=== PATIENT | female | born 1950 | race Caucasian/White ===

== ENCOUNTER → 2023-04-29 13:22 | Outpatient (REF) | payer MEDICARE, OTHER, MEDICAID, SELFPAY | LOC: RAD 13:22 | PROVIDERS: ATTENDING PHYSICIAN Internal Medicine Critical Care Medicine; FAMILY PHYSICIAN Internal Medicine | DX: R91.8 Other nonspecific abnormal finding of lung field (principal); J44.1 Chronic obstructive pulmonary disease with (acute) exacerbation | CPT/HCPCS: 71250 ==

== ENCOUNTER → 2023-06-18 11:36 | Outpatient (REF) | payer MEDICARE, MEDICAID, SELFPAY ==
[2023-06-18 13:19] LABS: % Eosinophils 2.3 % (0-6); % Immature Granulocytes 0.3 % (0-0.5); % Lymphocytes 25.2 % (20.5-51.1); % Monocytes 10.6 % (1.7-9.3); % Neutrophils 60.6 % (42.2-75.2); Absolute Eosinophils 0.1 10^3/uL (0-0.7); Absolute Lymphocytes 0.8 10^3/uL (1.2-3.4); Absolute Monocytes 0.3 10^3/uL (0.1-0.6); Absolute Neutrophils 1.9 10^3/uL (1.4-6.5); Hematocrit 32.5 % (37.0-47.0); INR 1.16; Mean Corp Hgb Conc. 30.8 g/dL (33.0-37.0); Mean Corpuscular Hgb 23.9 pg (27.0-31.0); Mean Corpuscular Volume 77.8 fL (81.0-99.0); Nucleated Red Blood Cells % 0 %; PT 14.8 Sec (11.4-14.6); Platelet Count 114 10^3/uL (130-400); Red Blood Cell Count 4.18 10^6/uL (4.20-5.40); Red Cell Dist. Width 17.6 % (11.5-14.5); White Blood Cell Count 3.1 10^3/uL (4.8-10.8)
[2023-06-18 13:46] LABS: ALT (SGPT) 18 U/L (0-35); AST (SGOT) 36 U/L (14-36); Albumin 4.6 g/dl (3.5-5.0); Alkaline Phosphatase 67 U/L (38-126); Blood Urea Nitrogen 17 mg/dl (7-17); Calcium 9.5 mg/dl (8.4-10.2); Carbon Dioxide 29 mmol/L (22-30); Chloride 103 mmol/L (98-107); Glucose 100 mg/dl (70-99); Potassium 4.7 mmol/L (3.5-5.1); Sodium 138 mmol/L (135-145); Total Bilirubin 1.1 mg/dl (0.2-1.3); Total Protein 7.7 g/dl (6.3-8.2); eGFR 59.86
[2023-06-19 18:58] LABS: AFP Male/Tumor Marker 1.59 ng/ml
[2023-06-20 00:56] LABS: Hepatitis B Surface Antigen Negative (Negative)
[2023-06-20 01:14] LABS: Hepatitis B Surface Antibody Negative
[2023-06-20 01:15] LABS: Hepatitis A Antibody, Total Positive (Negative)
[2023-06-20 02:14] LABS: Hepatitis B Core Ab, Total Reactive (Negative)
[2023-06-21 04:28] LABS: HCV Quant by NAAT IU/mL Not Detected; HCV Quant by NAAT Interp Not Detected (Not Detected); HCV Quant by NAAT Log IU/mL Not Detected log IU/mL
== END ==
LOC: REG 11:36
PROVIDERS: ATTENDING PHYSICIAN Internal Medicine Gastroenterology; FAMILY PHYSICIAN Internal Medicine
DX: K70.30 Alcoholic cirrhosis of liver without ascites (principal)
CPT/HCPCS: 36415; 80053; 82105; 85025; 85610; 86704; 86706; 86708; 87340; 87522; 87902

== ENCOUNTER → 2023-10-02 12:03 | Outpatient (REF) | payer MEDICARE, MEDICAID, SELFPAY | LOC: RAD 12:03 | PROVIDERS: ATTENDING PHYSICIAN Radiology Radiation Oncology; FAMILY PHYSICIAN Internal Medicine | DX: C34.31 Malignant neoplasm of lower lobe, right bronchus or lung (principal) | CPT/HCPCS: 71250 ==

== ENCOUNTER → 2023-10-23 09:51 | Outpatient (REF) | payer MEDICARE, MEDICAID, SELFPAY | LOC: RST 09:51 | PROVIDERS: ATTENDING PHYSICIAN Internal Medicine Critical Care Medicine; FAMILY PHYSICIAN Internal Medicine | DX: R05.3 Chronic cough (principal); R13.19 Other dysphagia | CPT/HCPCS: 74230; 92611 ==

== ENCOUNTER 2023-12-12 23:16 | Inpatient (IN) | payer MEDICARE, MEDICAID, SELFPAY ==
[2023-12-12 20:11] VITALS: BP 198/103
[2023-12-12 20:33] LABS: % Basophils 0.4 % (0-2); % Eosinophils 2.7 % (0-6); % Immature Granulocytes 0.4 % (0-0.5); % Lymphocytes 13.7 % (20.5-51.1); % Monocytes 10.6 % (1.7-9.3); % Neutrophils 72.2 % (42.2-75.2); Absolute Eosinophils 0.1 10^3/uL (0-0.7); Absolute Lymphocytes 0.4 10^3/uL (1.2-3.4); Absolute Monocytes 0.3 10^3/uL (0.1-0.6); Absolute Neutrophils 1.9 10^3/uL (1.4-6.5); Hematocrit 28.9 % (37.0-47.0); Mean Corp Hgb Conc. 31.1 g/dL (33.0-37.0); Mean Corpuscular Hgb 23.6 pg (27.0-31.0); Mean Corpuscular Volume 75.7 fL (81.0-99.0); Mean Platelet Volume 9.5 fL (7.4-10.4); Nucleated Red Blood Cells % 0 %; Platelet Count 121 10^3/uL (130-400); Red Blood Cell Count 3.82 10^6/uL (4.20-5.40); Red Cell Dist. Width 14.9 % (11.5-14.5); White Blood Cell Count 2.6 10^3/uL (4.8-10.8)
[2023-12-12 20:48] LABS: ALT (SGPT) 17 U/L (0-35); AST (SGOT) 29 U/L (14-36); Albumin 3.9 g/dl (3.5-5.0); Alkaline Phosphatase 61 U/L (38-126); Blood Urea Nitrogen 21 mg/dl (7-17); Calcium 9.2 mg/dl (8.4-10.2); Carbon Dioxide 30 mmol/L (22-30); Chloride 102 mmol/L (98-107); Glucose 127 mg/dl (70-99); Potassium 3.8 mmol/L (3.5-5.1); Sodium 143 mmol/L (135-145); Total Bilirubin 0.9 mg/dl (0.2-1.3); Total Protein 7.3 g/dl (6.3-8.2); eGFR > 60.00
--- NOTE | 2023-12-12 21:27 | ED.GENMED ---
History of Present Illness
General
Chief Complaint: Breathing Problem
Source: patient
Exam Limitations: none
Time Seen by Provider: 12/12/23 21:12
History of Present Illness
History of Present Illness:
This is a 73 year old female that comes in with c/o SOB. States that she has had increased SOB for the past 2 weeks. States that she is so SOB that she feels like she can't roll over in bed and she can't breath. States that when she used her
Nebulizer at home this seemed to make her feel worse so she stopped using it. States that she uses her albuterol inhaler Qvar inhaler. States that her BP has also been elevated. States that she felt like she had a fever a couple days ago but did not
take her temp. States that she has had chills, heaviness in her chest with SOB, headache and lightheadedness. Denies any abd pain, nausea, vomiting, diarrhea, urinary burning.
Past History
Past History
ED Past Medical History: COPD, GERD, HTN, Psychiatric (Depression, insomnia) and Other (Gastritis/ulcer, PNA, Cirrhosis of the liver, GI bleeding. Hemorrhoids. Hep C, Ulcers, Esopohageal varices. UTI, Anemia, )
ED Past Surgical History: None
Social History
Tobacco: Former smoker
Alcohol: Occasional
Drug: None and IVDA
Personal: Single
Living: with family
Employment: Not employed
Family History
Family History: Other (Noncontributory); Negative Early CAD
Review of Systems
Review of Systems
All Other Systems: ROS reviewed and negative except as documented in HPI and ROS
Constitutional: Reports fever (Couple days ago) and chills
EENT: Reports no symptoms
Respiratory: Reports cough and trouble breathing
Cardiac: Reports chest pain (Heaviness )
ABD/GI: Reports no symptoms; Denies abdominal pain, nausea, vomiting or diarrhea
: Reports no symptoms; Denies dysuria, frequency or urgency
Musculoskeletal: Reports no symptoms
Skin: Reports no symptoms
Neurological: Reports headache and other (Lightheaded); Denies dizzy
Psychiatric: Reports no symptoms
Phy Exam
General Physical Exam
General Presentation: no apparent distress
General age: appears stated age
General Skin: warm and dry
General Habitus: elderly
General Mental: alert
General Hydration: appears well hydrated
ENT Exam
ENT Exam: TM's normal, pharynx normal and neck supple
Eye Exam
Eye Exam: EOMI
Cardiovascular Exam
Cardiovascular Exam: regular rate/rhythm, no edema and normal peripheral pulses
Pulmonary Exam
Pulmonary Exam: no rales, chest non tender, no crackles, no rhonchi and decreased breath sounds (with insp wheezing throughout)
Gastrointestinal Exam
Gastrointestinal Exam: normal bowel sounds, non tender, soft, no organomegaly, no pulsatile mass and non distended
Musculoskeletal Exam
Musculoskeletal Exam: full ROM and no edema
Skin Exam
Skin Exam: normal color, warm/dry, no rash and no petechia
Psychiatric Exam
Psychiatric Exam: normal mood/affect
Scores
Heart Failure Risk
Heart Failure Risk Score: Not Applicable
Course
Orders/Labs/Results
Orders:
Orders
12/12/23 20:08
EKG [Electrocardiogram (*1)] Urgent
Reason for Study: Shortness of Breath
EKG- Treatment ONCE
Chest [CR Chest - 2 Views ] Urgent
Comment:
Reason For Exam: SOB
12/12/23 20:22
CBC/With Diff [Complete Blood Count/With Diff] Urgent
CMP [Comprehensive Metabolic Panel] Urgent
12/12/23 21:27
Dexamethasone Sod Phosphate [Decadron] 10 mg IV NOW STA
Ipratropium/Albuterol Sulfate [Duoneb] 3 ml INH R NOW ONE
Abnormal Lab Results
12/12/23
20:22
WBC 2.6 L 10^3/uL
(4.8-10.8)
RBC 3.82 L 10^6/uL
(4.20-5.40)
Hgb 9.0 L g/dL
(12.0-16.0)
Hct 28.9 L %
(37.0-47.0)
MCV 75.7 L fL
(81.0-99.0)
MCH 23.6 L pg
(27.0-31.0)
MCHC 31.1 L g/dL
(33.0-37.0)
RDW 14.9 H %
(11.5-14.5)
Plt Count 121 L 10^3/uL
(130-400)
Absolute Lymphs (auto) 0.4 L 10^3/uL
(1.2-3.4)
Lymphocytes % 13.7 L %
(20.5-51.1)
Monocytes % 10.6 H %
(1.7-9.3)
BUN 21 H mg/dl
(7-17)
Glucose 127 H mg/dl
(70-99)
12/12/23 20:22
12/12/23 20:22
Pancytopenia. H/H low. Anemia, Very slight Dehydration. Hyperglycemia.
Vital Signs
Initial and Last Documented VS:
Initial Vital Signs
Temp Pulse Resp BP Pulse Ox
97.6 F 94 25 198/103 93
12/12/23 20:11 12/12/23 20:11 12/12/23 20:11 12/12/23 20:11 12/12/23 20:11
Last Documented Vital Signs
Temp Pulse Resp BP Pulse Ox
97.6 F 85 25 182/83 100
12/12/23 20:11 12/12/23 21:59 12/12/23 20:11 12/12/23 22:01 12/12/23 21:59
MDM/Problems Addressed
Differential Diagnosis Includes:
COPD, PNA,
MDM/Problems Addressed:
This is a 73 year old female that comes in with c/o increased SOB over the past 2 weeks. States that she has been so SOB that she can't even roll over in bed. States that her Nebulizer seems to make her feel worse.
Will check labs, chest x-ray, Give Duo and steroids.
Back into see patient. Patient states that she felt some better after the neb treatment. Attempted to walk patient and patient is hypoxic with any activity. Placed patient on 1liter of nasal canula. Will admit
Chronic conditions affecting care: COPD
Acute Exacerbation and/or Progression of Chronic Illness: COPD
*Radiology
Radiology exam reviewed: radiology read reviewed (cHEST-cHRONIC EMPHYSEMATOUS CHANGES WITHOUT NEW FOCAL AIRSPACE DISEASE. )
*Pulse Oximetry
Patient hypoxic: no
*EKG
Interpreted by ED Provider?: Yes
Heart Rate: 89
Rate: normal
Rhythm: sinus
[place]: normal axis
Interval: normal interval
QRS Pattern: normal QRS
Ischemia: non-specific ST changes (II, III, aVF, V3, V4, V5, V6, )
*Plastics Engineering Teacher Interpretation
Rate: Plastics Engineering Teacher- N/A
*Critical Care Note
Total Time (30-74mins, 75-104mins- exclusive of procedures): Not Applicable
ED Attending Note
-
Portions of this chart may have been created with voice recognition software.� Occasional wrong word or��sound alike� substitutions may have occurred due to the inherent limitations of voice recognition software.
Discharge Plan
Departure
Patient Disposition: Admit
Date of Disposition: 12/12/23
Time of Disposition: 22:46
Admit to: Telemetry
Presentation/result/management discussed w/ accepting MD/DO: Hospitalist
Patient with high blood pressure during this ER visit?: Yes
Condition: Good
Covid-19: Not Applicable
Discharge Problem:
COPD exacerbation, Hypoxia, SOB (shortness of breath)
Prescriptions:
No Action
trazodone 50 MG tablet
50 - 100 mg PO HSPRN PRN (Reason: sleep)
propranolol 60 MG capsule,extended release 24 hr
60 mg PO DAILY
albuterol sulfate 2.5 mg /3 mL (0.083 %) Solution For Nebulization
2.5 mg INHALATION R Q4HPRN PRN (Reason: sob) Qty: 0
omeprazole 40 mg Capsule,Delayed Release(Dr/Ec)
40 mg PO DAILY
albuterol sulfate [ProAir HFA] 90 mcg/actuation Hfa Aerosol Inhaler
2 puff INHALATION R Q6HPRN PRN (Reason: sob)
valsartan 160 mg Tablet
160 mg PO DAILY
Patient Comments:
-patient said she still takes this but ecw show dicontinued
Qvar RediHaler 40 mcg/actuation Hfa Aerosol Breath Activated
1 inh INHALATION R BID
prednisone 10 mg Tablet
See Rx Instructions .ROUTE .COMPLEX Qty: 20 0RF
Rx Instructions:
Take By Mouth:
40 mg daily x2 days, 30 mg daily x2 days,
20 mg daily x2 days, 10 mg daily x2 days.
cefdinir 300 mg capsule
300 mg PO BID 3 Days Qty: 6 0RF
doxycycline hyclate 100 mg capsule
100 mg PO BID Qty: 6 0RF
methylprednisolone [Medrol (Edson)] 4 mg tablets,dose pack
See Rx Instructions .ROUTE .COMPLEX Qty: 21 0RF
Rx Instructions:
orally per package directions
Referrals:
Fer Motta MD [Family Provider] -
Interventions
Interventions:
*Risk Screen - Suicide Last Done: 12/12/23 20:11
*General Assessment Last Done: 12/12/23 22:04
*Neglect/Abuse Screening Last Done: 12/12/23 20:11
*ED COVID-19 Vaccine History Last Done: 12/12/23 22:04
ED- Cardiac Assessment Last Done: 12/12/23 21:59
ED- Pulmonary Assessment Last Done: 12/12/23 21:59
Discharge Date and Time
Print Language: SUDANESE
[2023-12-12] MEDS: DUONEB 3 ML INH (21:49)
[2023-12-12] MEDS: DECADRON 10 MG IV (21:51)
[2023-12-12 21:59] VITALS: BP 192/82
[2023-12-12 22:00] VITALS: BP 182/83
[2023-12-12 22:01] VITALS: BP 182/83
--- NOTE | 2023-12-12 22:54 | HPS.HSE ---
Addendum entered and electronically signed by Sanjay De Jesus DO 12/12/23 23:45:
Patient seen and examined independently. Agree with findings and plan as set forth by HUBERT Watters.
Patient is a 73y F with PMH significant for COPD, pancytopenia, hypertension and cirrhosis who presents to ED complaining of SOB x 2 weeks. Patient states that she has been using inhaled medications at home without improvement in her symptoms.
In fact, she states that she feels worse after taking budesonide nebs. Patient denies fevers but reports occasional chills. No known sick contacts.
In the ED, patient is hypoxemia on room air and is requiring supplemental oxygen.
Ass:
COPD with Acute Exacerbation
Acute Hypoxemic Respiratory Insufficiency
Chronic Hep C
Cirrhosis secondary to Hep C and History of Alcohol Use Disorder
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
Benign Hypertension
Anxiety / Depression
Plan:
Admit for further evaluation and treatment.
No active wheezing, but markedly diminished breath sounds throughout.
IV steroids for now and taper as able.
Continue inhaled medications / nebs, O2 support, etc.
Follow for clinical improvement.
Continue usual home medication regimen.
IV hydralazine as needed for very high BP.
Original Note:
Family Physician
-
Family Physician: Fer Motta
Chief Complaint
-
sob
History of Present Illness
73 year old female with PMH for COPD, pancytopenia, HTN, cirrhosis of liver, HTn, depression that comes in with c/o SOB for past two weeks. sob worse with activity. she can't even turn over in bed due to sob. it progressively got worse for last four
days. patient used her nebulizer treatment which was making her breathing worse. Breo helped her. patient stated non productive cough. at time she gets stabbing pain to her left lower ribs. States that she has had chills, heaviness in her chest
with SOB, headache and lightheadedness. Denies any abdominal pain, nausea, vomiting, diarrhea, burning or hematuria.
Upon arrival she is 89-90 on RA. she is requiring 2l of oxygen. admitting for further management.
Medical History
Past Medical History
Past Medical History: Reports Other
Additional Past Medical History:
COPD
anemia
htn
cirrhosis of liver
alcohol abuse
depression
anxiety
esophageal varices
chronic hepatitis C
lung nodules
Past Surgical History: Reports None
Social History
Tobacco: Former Smoker
Alcohol: Occasional
Drug: None
Family History
Family History: Not pertinent
Allergies / Home Medications
Allergies reflects when Allergies were last updated in [employer].
Home Medications with original date entered in [employer]
Allergy/Medication List:
Allergies
Allergy/AdvReac Type Severity Reaction Status Date / Time
No Known Allergies Allergy Verified 12/12/23 21:47
Home Medications
propranolol 60 mg capsule,24 hr,extended release 60 mg PO DAILY Blood Pressure 01/30/18
omeprazole 40 mg capsule,delayed release 40 mg PO DAILY Gastrointestinal Issue 01/22/23
valsartan 160 mg tablet 160 mg PO DAILY Blood Pressure 01/22/23
albuterol sulfate 90 mcg/actuation aerosol inhaler 1 puff inhalation R Q4HPRN PRN sob/wheezing 12/12/23
budesonide 0.5 mg/2 mL suspension for nebulization 0.5 mg inhalation R BID 12/12/23
trazodone 100 mg tablet 100 mg PO HS 12/12/23
umeclidinium 62.5 mcg-vilanterol 25 mcg/actuation powdr for inhalation (Anoro Ellipta) 1 inh inhalation R DAILY 12/12/23
Review of Systems
-
Constitutional: Reports No Symptoms
EENT: Reports No Symptoms
Respiratory: Reports Cough and Trouble Breathing
Cardiac: Reports No Symptoms
Abdomen/GI: Reports No Symptoms
: Reports No Symptoms
Musculoskeletal: Reports No Symptoms
Skin: Reports No Symptoms
Neurological: Reports No Symptoms
Endocrine: Reports No Symptoms
Hematologic/Lymphatic: Reports No Symptoms
Psych: Reports No Symptoms
Physical Exam
Vital Signs
Vital Signs
Temp Pulse Resp BP Pulse Ox
97.6 F 85 25 182/83 100
12/12/23 20:11 12/12/23 21:59 12/12/23 20:11 12/12/23 22:01 12/12/23 21:59
Physical Exam
General: Well Developed, Well Nourished and No Apparent Distress
HEENT: NormoCephalic, Moist mucous membranes and Atraumatic
Respiratory: Decreased Breath Sounds
Cardiac: S1/S2 and Regular Rhythm; No Murmur or Rub
GI: Soft, Non Tender, Non Distended and Normal Bowel Sounds; No Organomegaly
Rectal: Deferred by Provider
Musculoskeletal: No Clubbing, No Cyanosis and No Edema
Skin: No Rash
Neuro: AO x 3 and Nonfocal/grossly intact
Psych: Calm
Laboratory Results
-
12/12/23 20:22
12/12/23 20:22
Laboratory Results
Total Bilirubin 0.9 mg/dl (0.2-1.3) 12/12/23 20:22
AST 29 U/L (14-36) 12/12/23 20:22
ALT 17 U/L (0-35) 12/12/23 20:22
Alkaline Phosphatase 61 U/L (38-126) 12/12/23 20:22
Data Reviewed
-
Diagnostic Radiology: Report Reviewed by me
Lab Data: Labs Reviewed by me
Impression/Plan
-
#sob /acute hypoxia likely COPD exacerbation
-chest x ray with Chronic emphysematous changes without new focal airspace disease.
-Decadron 4mg q18h
-nebs prn for sob/wheezing
-continue supplemental oxygen to keep sat 92
-wean as tolerated
# chronic pancytopenia likely due to liver disease
-wbc 2.6, hgb 9.0, platelets 121
-ctm
#Chronic hepatitis C
�-Alcoholic Cirrhosis
# Essential hypertension -uncontrolled
-valsartan and propranolol continued with hold parameter
-As needed hydralazine ordered
#Former alcohol use disorder
#History of tobacco use
DVT PPX - Lovenox
Full code
[2023-12-12 23:10] VITALS: BP 205/87
[2023-12-13] VITALS (10 sets, daily range): BP systolic 152–196; BP diastolic 74–108; BMI 15.4
[2023-12-13] MEDS: APRESOLINE 10 MG IV ×3 (00:04→15:52)
[2023-12-13] MEDS: DUONEB 3 ML INH ×3 (01:14→19:26)
[2023-12-13] MEDS: DECADRON 4 MG IV ×3 (05:24→22:34)
[2023-12-13 07:09] LABS: Hematocrit 26.6 % (37.0-47.0); Hemoglobin 8.4 g/dL (12.0-16.0); Mean Corp Hgb Conc. 31.6 g/dL (33.0-37.0); Mean Corpuscular Hgb 23.5 pg (27.0-31.0); Mean Corpuscular Volume 74.5 fL (81.0-99.0); Mean Platelet Volume 10.1 fL (7.4-10.4); Platelet Count 119 10^3/uL (130-400); Red Blood Cell Count 3.57 10^6/uL (4.20-5.40); Red Cell Dist. Width 14.6 % (11.5-14.5); White Blood Cell Count 1.5 10^3/uL (4.8-10.8)
[2023-12-13] MEDS: TYLENOL 650 MG PO (07:22)
[2023-12-13] MEDS: PULMICORT 0.5 MG INH ×2 (07:26→19:26)
[2023-12-13 07:38] LABS: Blood Urea Nitrogen 22 mg/dl (7-17); Calcium 9.4 mg/dl (8.4-10.2); Carbon Dioxide 26 mmol/L (22-30); Chloride 101 mmol/L (98-107); Estimated Creatinine Clearance 44 ml/min; Glucose 171 mg/dl (70-99); Potassium 3.8 mmol/L (3.5-5.1); Sodium 141 mmol/L (135-145); eGFR > 60.00
[2023-12-13 07:40] LABS: % Immature Granulocytes 0.7 % (0-0.5); % Lymphocytes 18.9 % (20.5-51.1); % Monocytes 3.4 % (1.7-9.3); Absolute Lymphocytes 0.3 10^3/uL (1.2-3.4); Absolute Monocytes 0.1 10^3/uL (0.1-0.6); Absolute Neutrophils 1.1 10^3/uL (1.4-6.5); Nucleated Red Blood Cells % 0 %
--- NOTE | 2023-12-13 07:40 | W.PN.HOSP.TC ---
Today's Communication/Plan
-
cont steroids
wean O2 as tolerated
ativan prn anxiety
blood pressure control
Diet downgraded to soft bite sized
Protonix BID
Assessment / Plan
Assessment / Plan
Physical Exam
General:No acute distress appears comfortable at this time. Cachectic
HEENT: NormoCephalic, Moist mucous membranes and Atraumatic. Right Carotid Bruit noted
Respiratory: Decreased Breath Sounds
Cardiac: S1/S2 and Regular Rhythm; No Murmur or Rub. JV distension noted
GI: Soft, Non Tender, Non Distended and Normal Bowel Sounds; No Organomegaly
Musculoskeletal: No Clubbing, No Cyanosis and No Edema
Skin: No Rash
Neuro: AO x 3 and Nonfocal/grossly intact
Psych: Calm
73F COPD, pancytopenia, HTN, cirrhosis of liver, HTN, depression p/w SOB two weeks. sob worse with activity. she can't even turn over in bed due to sob. it progressively got worse for last four days. patient used her nebulizer treatment which was
making her breathing worse. Breo helped her. patient stated non productive cough. at time she gets stabbing pain to her left lower ribs. States that she has had chills, heaviness in her chest with SOB, headache and lightheadedness. Denies any
abdominal pain, nausea, vomiting, diarrhea, burning or hematuria. Upon arrival she is 89-90 on RA. she is requiring 2l of oxygen. admitting for further management.
#sob /acute hypoxia likely COPD exacerbation
# D-dimer elevated
-chest x ray with Chronic emphysematous changes without new focal airspace disease.
-Decadron 4mg q8h
-nebs prn for sob/wheezing
-continue supplemental oxygen to keep sat 92
-wean as tolerated
-CT chest appreciated no PE, stable 8 mm nodule RLL, Moderate/severe apical predominant emphysematous bioapical pleural parenchymal scarring unchanged from prior, cirrhosis w/ splenomegaly similar to prior
-Check Venous Duplex
Intermittent Chest Pain
-neg troponin, EKG appreciated non specific ST abn's
-possibly related to GERD/Esophageal Dysphagia
-Protonix increased to BID
-ST eval appreciated diet downgraded to soft bite sized
#Right Carotid Bruit
Check Carotid US
#JV distension
Check ECHO
daily weights I/O
# chronic pancytopenia likely due to liver disease
-ctm
#Neutropenic
Neutrophil count trended down
maintain neutropenic precautions at this time
#Chronic hepatitis C
�-Alcoholic Cirrhosis
# Essential hypertension -uncontrolled
-valsartan and propranolol continued with hold parameter
-As needed hydralazine
-monitor and titrate antihypertensive regimen as necessary.
#Former alcohol use disorder
#History of tobacco use
PT/OT appreciated home health
DVT PPX - Lovenox
Full code
I spent a total of 50 minutes with the patient or on the floor. More than 50% of this time involved counseling and coordination of care.
Anticipated Discharge: 24 - 48 hours
Subjective/Interval History
-
Date of Service: December 13, 2023
Seen and examined at bedside in no acute distress sitting up comfortably in bed. Reports overall improvement in symptoms including shortness of breath. Reports intermittent chest pain sternal lasting minutes typically. Notes possible association
with meals.
Objective Data
-
Labs:
Laboratory Results
12/12/23 12/13/23
20:22 05:52
WBC 2.6 L 1.5 L*
Hgb 9.0 L 8.4 L
Hct 28.9 L 26.6 L
Plt Count 121 L 119 L
Sodium 143 141
Potassium 3.8 3.8
Chloride 102 101
Carbon Dioxide 30 26
BUN 21 H 22 H
Creatinine 0.8 0.7
Glucose 127 H 171 H
Calcium 9.2 9.4
Total Bilirubin 0.9
AST 29
ALT 17
Alkaline Phosphatase 61
Vital Signs:
Vital Signs
Temp Pulse Resp BP Pulse Ox
98.5 F 98 18 171/85 98
12/13/23 04:26 12/13/23 07:33 12/13/23 07:33 12/13/23 06:27 12/13/23 07:33
I&O
12/12/23 12/13/23 12/14/23
06:59 06:59 05:59
Output Total 200 / 200
Balance -200 / -200
[2023-12-13] MEDS: PROTONIX 40 MG PO (08:43)
[2023-12-13] MEDS: INDERAL LA 60 MG PO (08:43)
[2023-12-13] MEDS: DIOVAN 160 MG PO (08:44)
[2023-12-13 09:05] LABS: Hematocrit 27.9 % (37.0-47.0); Hemoglobin 9.1 g/dL (12.0-16.0)
[2023-12-13 09:31] LABS: Troponin I < 0.012 ng/ml
[2023-12-13] MEDS: STRIVERDI RESPIMAT 2 PUFF INH (11:21)
[2023-12-13] MEDS: SPIRIVA RESPIMAT 2.5 MCG 2 PUFF INH (11:22)
[2023-12-13 12:40] LABS: NT-proBNP 1710 pg/ml
--- NOTE | 2023-12-13 15:33 | PTOTSP ---
Acute Care Evaluation
Pt currently presents with mild oral dysphagia 2/2 reduced and alternative dentition resulting in prolonged mastication and bolus formation. Pt also exhibits clinical signs for suspected mild pharyngoesophageal dysphagia characterized by delayed
coughing with ingestion of liquids in addition to pt's reported symptoms of occasional difficulty initiating swallows, coughing/choking with PO intake at least 1x a day (more with solids than liquids), globus sensation near clavicular notch and near
sternal apex with PO intake, and needing to swallow multiple times for to clear solids.
Recommendations:
- DOWNGRADE diet to SOFT BITE SIZED SOLIDS and continue with REGULAR THIN LIQUIDS with meds with water as tolerated.
- Aspiration and reflux precautions: Fully upright for all PO intake and for at least 60 minutes after PO intake; small bites/sips; alternate bites/sips; over chew foods; slow intake rate - take breaks to breathe.
- Consider repeat VFSS (though not much has changed medically-speaking since last VFSS on 10/23/2023).
- CENTER MACHINE OPERATOR to f/u re: diet tolerance and to determine if pt would benefit from a repeat VFSS.
--- NOTE | 2023-12-13 15:35 | CM ---
CM following re: discharge planning.
Reviewed pt's chart, met with pt.
Pt is a 73 year old female, admitted with primary dx of Acute hypoxic respiratory failure.
Pt reports she lives now with son in an apartment, has 5 supportive children. Pt described herself as independent in all areas [employer]S MA[employer]GER. No DME, VN or SNF history.
PCP: Fer Paniagua
Pharmacy: [facility]
D/C plan: home with anticipated no needs. Son to transport at discharge.
CM will follow with discharge plan updates as hospitalization progresses
--- NOTE | 2023-12-13 17:45 | PTCARENOTE ---
Patient received to room 427 private room to accommodate neutropenic precautions. Patient oriented to room. Patient verbalizes understanding to ring for needs. Patient also verbalizes that she ordered her dinner tray.
--- NOTE | 2023-12-13 17:46 | PTCARENOTE ---
pt transferred to [address] [place] [address]. Report given to WANG Farnsworth. sent belongings with the pt.
[2023-12-13] MEDS: NSS (PRESERVATIVE FREE) 10 ML IV (20:00)
[2023-12-13] MEDS: PROTONIX IV 40 MG IV (20:00)
[2023-12-13] MEDS: DESYREL 100 MG PO (22:34)
[2023-12-14] MEDS: DECADRON 4 MG IV ×3 (05:28→20:19)
[2023-12-14 05:56] LABS: % Basophils 0.2 % (0-2); % Immature Granulocytes 0.2 % (0-0.5); % Lymphocytes 7.4 % (20.5-51.1); % Monocytes 3.5 % (1.7-9.3); % Neutrophils 88.7 % (42.2-75.2); Absolute Lymphocytes 0.4 10^3/uL (1.2-3.4); Absolute Monocytes 0.2 10^3/uL (0.1-0.6); Absolute Neutrophils 4.8 10^3/uL (1.4-6.5); Hematocrit 26.8 % (37.0-47.0); Hemoglobin 8.3 g/dL (12.0-16.0); Mean Corpuscular Hgb 23.3 pg (27.0-31.0); Mean Corpuscular Volume 75.3 fL (81.0-99.0); Mean Platelet Volume 10.1 fL (7.4-10.4); Nucleated Red Blood Cells % 0 %; Platelet Count 133 10^3/uL (130-400); Red Blood Cell Count 3.56 10^6/uL (4.20-5.40); Red Cell Dist. Width 14.6 % (11.5-14.5); White Blood Cell Count 5.4 10^3/uL (4.8-10.8)
[2023-12-14 06:36] LABS: Blood Urea Nitrogen 31 mg/dl (7-17); Calcium 9.2 mg/dl (8.4-10.2); Carbon Dioxide 27 mmol/L (22-30); Chloride 102 mmol/L (98-107); Estimated Creatinine Clearance 34 ml/min; Glucose 126 mg/dl (70-99); Potassium 4.3 mmol/L (3.5-5.1); Sodium 140 mmol/L (135-145); eGFR > 60.00
--- NOTE | 2023-12-14 06:41 | W.PN.HOSP.TC ---
Today's Communication/Plan
-
Follow up ECHO and Carotid US Mon
Decadron tapered to Q12H
Calamine lotion prn itching
blood pressure control
PT/OT
Protonix BID
Assessment / Plan
Assessment / Plan
Physical Exam
General:No acute distress appears comfortable at this time. Cachectic
HEENT: NormoCephalic, Moist mucous membranes and Atraumatic. Right Carotid Bruit noted
Respiratory: Decreased Breath Sounds
Cardiac: S1/S2 and Regular Rhythm; No Murmur or Rub. JV distension noted
GI: Soft, Non Tender, Non Distended and Normal Bowel Sounds; No Organomegaly
Musculoskeletal: No Clubbing, No Cyanosis and No Edema
Skin: No Rash
Neuro: AO x 3 and Nonfocal/grossly intact
Psych: Calm
73F COPD, pancytopenia, HTN, cirrhosis of liver, HTN, depression p/w SOB two weeks. sob worse with activity. she can't even turn over in bed due to sob. it progressively got worse for last four days. patient used her nebulizer treatment which was
making her breathing worse. Breo helped her. patient stated non productive cough. at time she gets stabbing pain to her left lower ribs. States that she has had chills, heaviness in her chest with SOB, headache and lightheadedness. Denies any
abdominal pain, nausea, vomiting, diarrhea, burning or hematuria. Upon arrival she is 89-90 on RA. she is requiring 2l of oxygen. admitting for further management.
#sob /acute hypoxia likely COPD exacerbation
# D-dimer elevated
-chest x ray with Chronic emphysematous changes without new focal airspace disease.
-Decadron 4mg q8h tapered to Q12H
-nebs prn for sob/wheezing
-continue supplemental oxygen to keep sat 92
-wean O2 as tolerated, home oxygen assessment prior to discharge
-CT chest appreciated no PE, stable 8 mm nodule RLL, Moderate/severe apical predominant emphysematous bioapical pleural parenchymal scarring unchanged from prior, cirrhosis w/ splenomegaly similar to prior
-Venous Duplex appreciated neg for DVT
Intermittent Chest Pain
-neg troponin, EKG appreciated non specific ST abn's
-possibly related to GERD/Esophageal Dysphagia
-Protonix increased to BID
-ST eval appreciated diet downgraded to soft bite sized
#Right Carotid Bruit
Check Carotid US Friday
#JV distension
Check ECHO Friday
daily weights I/O
# chronic pancytopenia likely due to liver disease
-ctm
#Neutropenic
Neutrophil count trended down since resolved
ok to discontinue neutropenic precautions
#Chronic hepatitis C
�-Alcoholic Cirrhosis
# Essential hypertension -uncontrolled
-valsartan and propranolol continued with hold parameter
-As needed hydralazine
-monitor and titrate antihypertensive regimen as necessary.
#Former alcohol use disorder
#History of tobacco use
#Cachectic
nutrition eval
ensure supplementation
PT/OT appreciated home health
DVT PPX - Lovenox
Full code
I spent a total of 50 minutes with the patient or on the floor. More than 50% of this time involved counseling and coordination of care.
Anticipated Discharge: 24 - 48 hours
Subjective/Interval History
-
Date of Service: December 14, 2023
Seen and examined at bedside in no acute distress sitting up comfortably in bed. Weaned off oxygen supplementation to room air. Pursed lip breathing.
Objective Data
-
Labs:
Laboratory Results
12/14/23
05:41
WBC 5.4
Hgb 8.3 L
Hct 26.8 L
Plt Count 133
Sodium 140
Potassium 4.3
Chloride 102
Carbon Dioxide 27
BUN 31 H
Creatinine 0.9
Glucose 126 H
Calcium 9.2
Vital Signs:
Vital Signs
Temp Pulse Resp BP Pulse Ox
98.2 F 79 16 152/78 98
12/13/23 23:47 12/13/23 23:47 12/13/23 23:47 12/13/23 23:47 12/13/23 23:47
I&O
12/12/23 12/13/23 12/14/23
06:59 06:59 05:59
Intake Total 1020 / 1020
Output Total 200 / 200
Balance -200 / -200 1020 / 1020
[2023-12-14] MEDS: PULMICORT 0.5 MG INH ×2 (07:41→19:23)
[2023-12-14] MEDS: DUONEB 3 ML INH (07:41)
[2023-12-14] MEDS: STRIVERDI RESPIMAT 2 PUFF INH (07:41)
[2023-12-14] MEDS: SPIRIVA RESPIMAT 2.5 MCG 2 PUFF INH (07:42)
[2023-12-14 07:46] VITALS: BP 138/61
[2023-12-14] MEDS: PROTONIX IV 40 MG IV ×2 (09:19→20:28)
[2023-12-14] MEDS: NSS (PRESERVATIVE FREE) 10 ML IV ×2 (09:19→20:28)
[2023-12-14] MEDS: DIOVAN 160 MG PO (09:20)
[2023-12-14] MEDS: INDERAL LA 60 MG PO (09:40)
[2023-12-14 11:58] LABS: INR 1.27; PT 15.8 Sec (11.4-14.6)
[2023-12-14 11:59] LABS: APTT 29.7 Sec (23.4-35.0)
[2023-12-14 15:29] VITALS: BP 132/61; PULSE 81; PULSE 90; O2SAT 95
[2023-12-14 15:55] VITALS: BP 119/57
--- NOTE | 2023-12-14 16:39 | CM ---
Met with patient at bedside; explained that PT recommended home health services for PT; patient agreeable
Options identified; preference [facility]; referral sent via [facility]
Plan: discharge to home when medically stable with home health services
[2023-12-14] MEDS: DESYREL 100 MG PO (22:50)
[2023-12-14 23:30] VITALS: BP 146/78
[2023-12-15 07:30] VITALS: BP 132/65
[2023-12-15] MEDS: DIOVAN 160 MG PO (07:30)
[2023-12-15] MEDS: PROTONIX IV 40 MG IV (07:30)
[2023-12-15] MEDS: NSS (PRESERVATIVE FREE) 10 ML IV (07:30)
[2023-12-15] MEDS: DECADRON 4 MG IV (07:30)
[2023-12-15] MEDS: INDERAL LA 60 MG PO (07:30)
[2023-12-15] MEDS: PULMICORT 0.5 MG INH (08:13)
[2023-12-15] MEDS: STRIVERDI RESPIMAT 2 PUFF INH (08:13)
[2023-12-15] MEDS: SPIRIVA RESPIMAT 2.5 MCG 2 PUFF INH (08:13)
[2023-12-15 08:34] LABS: % Basophils 0.1 % (0-2); % Immature Granulocytes 0.6 % (0-0.5); % Lymphocytes 6.1 % (20.5-51.1); % Monocytes 4.8 % (1.7-9.3); % Neutrophils 88.4 % (42.2-75.2); Absolute Lymphocytes 0.4 10^3/uL (1.2-3.4); Absolute Monocytes 0.3 10^3/uL (0.1-0.6); Hematocrit 25.9 % (37.0-47.0); Hemoglobin 8.1 g/dL (12.0-16.0); Mean Corp Hgb Conc. 31.3 g/dL (33.0-37.0); Mean Corpuscular Hgb 23.7 pg (27.0-31.0); Mean Corpuscular Volume 75.7 fL (81.0-99.0); Mean Platelet Volume 10.5 fL (7.4-10.4); Nucleated Red Blood Cells % 0 %; Platelet Count 123 10^3/uL (130-400); Red Blood Cell Count 3.42 10^6/uL (4.20-5.40); Red Cell Dist. Width 14.7 % (11.5-14.5); White Blood Cell Count 6.7 10^3/uL (4.8-10.8)
[2023-12-15 08:57] LABS: Blood Urea Nitrogen 36 mg/dl (7-17); Carbon Dioxide 28 mmol/L (22-30); Chloride 101 mmol/L (98-107); Estimated Creatinine Clearance 28 ml/min; Glucose 106 mg/dl (70-99); Potassium 4.4 mmol/L (3.5-5.1); Sodium 140 mmol/L (135-145); eGFR 53.39
[2023-12-15 11:19] VITALS: PULSE 75; O2SAT 95
--- NOTE | 2023-12-15 12:40 | CM ---
CM reviewed chart, met with patient bedside, patient for discharge today. Patient reports she is currently staying with her son, son will provide transportation home. Update to [facility] on patient discharge status. IMM reviewed, signed, placed in chart,
provided with copy. CM will continue to follow for all discharge planning needs.
Plan; home with [facility] and son.
--- NOTE | 2023-12-15 13:10 | W.PN.HOSP.TC ---
Addendum entered and electronically signed by Justin Perez MD 12/18/23 16:01:
[id number]
Addendum entered and electronically signed by Justin Perez MD 12/18/23 15:11:
Severe protein calorie malnutrition
Original Note:
Today's Communication/Plan
-
Steroid taper
Follow-up PCP, pulmonary, gastroenterology outpatient
Stable size of the 8 mm nodule within the right lower lobe with associated fissural retraction. - f/u outpatient
Assessment / Plan
Assessment / Plan
Physical Exam
General:No acute distress appears comfortable at this time. Cachectic
HEENT: NormoCephalic, Moist mucous membranes and Atraumatic. Right Carotid Bruit noted
Respiratory: Decreased Breath Sounds
Cardiac: S1/S2 and Regular Rhythm; No Murmur or Rub. JV distension noted
GI: Soft, Non Tender, Non Distended and Normal Bowel Sounds; No Organomegaly
Musculoskeletal: No Clubbing, No Cyanosis and No Edema
Skin: No Rash
Neuro: AO x 3 and Nonfocal/grossly intact
Psych: Calm
73F COPD, pancytopenia, HTN, cirrhosis of liver, HTN, depression p/w SOB two weeks. sob worse with activity. she can't even turn over in bed due to sob. it progressively got worse for last four days. patient used her nebulizer treatment which was
making her breathing worse. Breo helped her. patient stated non productive cough. at time she gets stabbing pain to her left lower ribs. States that she has had chills, heaviness in her chest with SOB, headache and lightheadedness. Denies any
abdominal pain, nausea, vomiting, diarrhea, burning or hematuria. Upon arrival she is 89-90 on RA. she is requiring 2l of oxygen. admitting for further management.
#sob /acute hypoxia likely COPD exacerbation
-chest x ray with Chronic emphysematous changes without new focal airspace disease.
-Decadron 4mg q8h tapered to Q12H -switch to prednisone taper starting 50 mg and drop by 10 mg every 72 hours
-nebs prn for sob/wheezing, discharge on home inhalers
-Not requiring any oxygen
� O2 goal greater than 88%
-CT chest appreciated no PE, stable 8 mm nodule RLL, Moderate/severe apical predominant emphysematous bioapical pleural parenchymal scarring unchanged from prior, cirrhosis w/ splenomegaly similar to prior
-Venous Duplex appreciated neg for DVT
�Follow-up pulmonary outpatient
Intermittent Chest Pain
-neg troponin, EKG appreciated non specific ST abn's
-possibly related to GERD/Esophageal Dysphagia
-Protonix increased to BID
-ST eval appreciated diet downgraded to soft bite sized
#Dysphagia
-Advised to follow-up with gastroenterology, has not been following up closely with outpatient providers
#JV distension
Does not appear to be distention, does have small area of the vein that looks enlarged
� Carotid Dopplers with no significant stenosis
�Monitor and overload, appears euvolemic
# chronic pancytopenia likely due to liver disease
-ctm
#Neutropenic
Neutrophil count trended down since resolved
ok to discontinue neutropenic precautions
#Chronic hepatitis C
�-Alcoholic Cirrhosis
# Essential hypertension -uncontrolled
-valsartan and propranolol continued with hold parameter
-As needed hydralazine
-monitor and titrate antihypertensive regimen as necessary.
#Former alcohol use disorder
#History of tobacco use
#Cachectic
nutrition eval
ensure supplementation
PT/OT appreciated home health
DVT PPX - Lovenox
Full code
More than 30 minutes spent in discharge including
Final examination of the patient
Summarizing hospital stay
Instructions for continuing care to all relevant caregivers
Preparation of discharge records, prescriptions, and referral forms
Total time spent (35 in minutes):
Anticipated Discharge: Today
Subjective/Interval History
-
Date of Service: December 15, 2023
Symptoms greatly improved, ambulating without requirement of oxygen
Objective Data
-
Labs:
Laboratory Results
12/15/23
07:05
WBC 6.7
Hgb 8.1 L
Hct 25.9 L
Plt Count 123 L
Sodium 140
Potassium 4.4
Chloride 101
Carbon Dioxide 28
BUN 36 H
Creatinine 1.1 H
Glucose 106 H
Calcium 9.0
Vital Signs:
Vital Signs
Temp Pulse Resp BP Pulse Ox
97.6 F 77 16 132/65 95
12/15/23 07:30 12/15/23 08:17 12/15/23 08:17 12/15/23 07:30 12/15/23 08:17
I&O
12/14/23 12/15/23 12/16/23
06:59 06:59 06:59
Intake Total 1080 / 1080
Balance 1080 / 1080
Review of Systems
-
All other systems: Not reviewed unless documented
Data Reviewed
-
CT Scan: Image personally visualized and interpreted and Report Reviewed by me
Labs: Labs Reviewed by me
--- NOTE | 2023-12-15 13:14 | W.DS.TRANS ---
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
-
Discharge Instructions:
Discharge Diagnosis/Procedures
#sob /acute hypoxia likely COPD exacerbation
Diet Low Cholesterol,Low Fat
Activity As tolerated
Blood Work cbc, cmp with pcp outpatient
Instructions:
Stand-Alone Forms:
Changes to Home Medications: Yes
Discharge Medications:
DC Medications w/original date entered in [facility]
propranolol 60 mg capsule,24 hr,extended release 60 mg PO DAILY Blood Pressure 01/30/18
omeprazole 40 mg capsule,delayed release 40 mg PO DAILY Gastrointestinal Issue 01/22/23
valsartan 160 mg tablet 160 mg PO DAILY Blood Pressure 01/22/23
albuterol sulfate 90 mcg/actuation aerosol inhaler 1 puff inhalation R Q4HPRN PRN sob/wheezing 12/12/23
budesonide 0.5 mg/2 mL suspension for nebulization 0.5 mg inhalation R BID Lung/Breathing Issues 12/12/23
trazodone 100 mg tablet 100 mg PO HS Mental Health/Anxiety 12/12/23
umeclidinium 62.5 mcg-vilanterol 25 mcg/actuation powdr for inhalation (Anoro Ellipta) 1 inh inhalation R DAILY Lung/Breathing Issues 12/12/23
prednisone 10 mg tablet See Rx Instructions .Route .COMPLEX #45 tabs 12/15/23
Home Medication Changes
prednisone 10 mg tablet See Rx Instructions .Route .COMPLEX #45 tabs 12/15/23
Pending Results: No
[2023-12-15 13:21] VITALS: BMI 15.4
[2023-12-15] MEDS: DELTASONE 40 MG PO (14:08)
[2023-12-15 14:30] VITALS: BP 136/77
--- NOTE | 2023-12-15 14:35 | VNURNOTE ---
Home Health Liaison met with patient at bedside to discuss [facility] nurse/therapy, visits, schedule and homebound status. Patient is agreeable and understands that visits at home will be 2-3 x per week to assess and teach medical management.
[facility] brochure provided with contact information. Patient is aware that [facility] will contact them for start of care in 1-2 days after discharge from .
[facility] referral accepted in [facility].
--- NOTE | 2023-12-16 13:30 | PN.CDI ---
CDI
- -
CDI:
Physician Documentation Request
Admit Date: 12/12/23 23:16
Dear Doctor Ana,
Patient admitted with COPD exacerbation.
12/14 Nutrition note, 'Patient meets ASPEN criteria for severe protein calorie malnutrition of chronic disease due to loss of more than 7.5% BW within 3 months and poor intake of less than 75% of estimated nutrition needs met for more than 1 month.
Please provide in your progress notes the diagnosis associated with the above findings and your assessment:
Severe protein calorie malnutrition
Other (please specify)
[place] Criteria ([facility] Hospitalist 2017)
2 or more criteria must be present for either
non severe or severe malnutrition
Note that the criteria differs related to the
presence of an acute or chronic illness
Chronic Illness
Energy Intake Non Severe: <75% for >1 month
Severe: <75% for >1 month
Weight Loss Non Severe: 5% over 1 month
7.5% over 3 months
10% over 6 months
20% over 1 year
Severe: >5% over 1 month
>7.5% over 3 months
>10% over 6 months
>20% over 1 year
Body Fat Non Severe: Mild Loss
Severe: Severe Loss
Muscle Mass Non Severe: Mild Loss
Severe: Severe Loss
Fluid Accumulation Non Severe: Mild Accumulation
Severe: Moderate to severe
accumulation
Reduced Conference Director Strength Non Severe: N/A
Severe: Measurably reduced
Use of terms such as suspected, likely, concern for, or probable (associated with a specific diagnosis that is being evaluated, monitored, or treated as if it exists) are acceptable and can be coded in the inpatient setting, when documented at the
time of discharge.
Thank you,
Shanika ZAMBRANO,RN,CCDS
CDI Specialist
Available via [facility] text
Please use your independent medical judgment in providing your response.
== END 2023-12-15 16:07 | disposition home health service (06) | DRG 190 ==
LOC: 4 WEST ACU 23:16
PROVIDERS: Emergency Medicine; Internal Medicine; Registered Nurse; ADMITTING PHYSICIAN Hospitalist; ATTENDING PHYSICIAN Internal Medicine; EMERGENCY PHYSICIAN Student in an Organized Health Care Education/Training Program; FAMILY PHYSICIAN Internal Medicine
DX: J44.1 Chronic obstructive pulmonary disease with (acute) exacerbation (principal); E43 Unspecified severe protein-calorie malnutrition; D61.818 Other pancytopenia; I85.10 Secondary esophageal varices without bleeding; R64 Cachexia; Z68.1 Body mass index [BMI] 19.9 or less, adult; R09.02 Hypoxemia; I10 Essential (primary) hypertension; I65.23 Occlusion and stenosis of bilateral carotid arteries; K21.9 Gastro-esophageal reflux disease without esophagitis; K70.30 Alcoholic cirrhosis of liver without ascites; B18.2 Chronic viral hepatitis C; G47.00 Insomnia, unspecified; F10.11 Alcohol abuse, in remission; F32.A Depression, unspecified; F41.9 Anxiety disorder, unspecified; Z79.51 Long term (current) use of inhaled steroids; Z79.899 Other long term (current) drug therapy; Z87.891 Personal history of nicotine dependence
CPT/HCPCS: 71046; 71275; 80048; 80053; 83880; 84484; 85014; 85018; 85025; 85379; 85610; 85730; 86850; 86900; 86901; 87070; 92610; 93005; 93306; 93880; 93970; 94640; 96374; 97116; 97162; 97530; 99285; Q9967

== ENCOUNTER 2023-12-27 14:54 | Inpatient (IN) | payer MEDICARE, MEDICAID, SELFPAY ==
[2023-12-27] VITALS (9 sets, daily range): BP systolic 158–198; BP diastolic 74–98; BMI 15.4; BMI 16.2
--- NOTE | 2023-12-27 10:25 | ED.GENMED ---
History of Present Illness
General
Chief Complaint: Chest Pain
Source: patient and records
Time Seen by Provider: 12/27/23 10:07
History of Present Illness
History of Present Illness:
73-year-old female with past medical history of COPD, hypertension, cirrhotic liver with esophageal varices and previous upper GI bleeding, chronic anemia/thrombocytopenia recently admitted to this facility for COPD exacerbation and discharged
within the last week and a half presenting back to the emergency department for evaluation of shortness of breath and pleuritic chest discomfort similar to her last admission but stating symptoms today do not seem as worse as a little over 2 weeks.
Patient states that she was going to the outpatient lab to get lab work done that was requested following her discharge here when it was noted by the staff there that patient appeared quite short of breath and was recommended to come back to the
emergency room. Patient states that she is continuing her steroid taper and states has been feeling a little bit better at home, used a nebulizer today and budesonide/Anoro but states still feeling somewhat short of breath. Denies any fevers or
infectious symptoms, lower extremity edema, abdominal pain, nausea, vomiting or any other concerns presently.
Past History
Past History
ED Past Medical History: COPD, GERD, HTN, Psychiatric (Depression, insomnia) and Other (Gastritis/ulcer, PNA, Cirrhosis of the liver, GI bleeding. Hemorrhoids. Hep C, Ulcers, Esopohageal varices. UTI, Anemia, )
ED Past Surgical History: Other
Social History
Tobacco: Former smoker
Alcohol: Occasional
Drug: Former user and IVDA
Personal: Single
Living: with family
Employment: Not employed
Family History
Family History: Other (Noncontributory); Negative Early CAD
Review of Systems
Review of Systems
All Other Systems: ROS reviewed and negative except as documented in HPI and ROS
Phy Exam
Physical Exam
Physical Exam:
GENERAL: Alert , in no apparent distress, appears short of breath but able to speak full sentences
HEAD: NCAT
EYE: conjunctiva clear
NECK: Supple
ENT: o/p clr, mmm.
CARDIAC: Regular rate and rhythm, no murmur
LUNGS: Audible wheezing, restricted throughout, mild tachypnea, no accessory muscle use, no Rales or rhonchi
NEUROLOGICAL: Alert and oriented
SKIN: Warm and dry, skin intact.
MUSCULOSKELETAL: well perfused. No edema
PSYCH: Normal and appropriate interaction.
Scores
Heart Failure Risk
Heart Failure Risk Score: Not Applicable
Heart Score for Chest Pain Patients
STEMI patient?: Not applicable
Withdrawal Assessment of Alcohol
Withdrawal Assessment Completed?: Not applicable
Course
Orders/Labs/Results
Orders:
Orders
12/27/23 09:59
EKG [Electrocardiogram (*1)] Urgent
Reason for Study: Chest Pain
Other Reason for Exam: shortness of breath
EKG- Treatment ONCE
12/27/23 10:15
Ipratropium/Albuterol Sulfate [Duoneb] 3 ml INH R NOW ONE
MethylPREDNISolone PF [Solu-Medrol Pf] 60 mg IV NOW STA
12/27/23 10:18
CR Chest - 2 Views Urgent
Comment:
Reason For Exam: COPD, worsening SOB
12/27/23 10:41
Basic Metabolic Panel Urgent
Ferritin Urgent
Iron Urgent
NT-proBNP Urgent
Total Iron Binding Urgent
Troponin I Urgent
Comment: ADD ON
12/27/23 10:42
Complete Blood Count/With Diff Urgent
12/27/23 13:24
Add On- LAB Urgent
Tests Added?: troponin
12/27/23 13:48
ABG [Arterial Blood Gas] Urgent
%Oxygen/Room Air: ra
12/27/23 13:55
Potassium Chloride [KCl] 40 meq PO NOW STA
Abnormal Lab Results
12/27/23 12/27/23
10:41 10:42
RBC 3.99 L 10^6/uL
(4.20-5.40)
Hgb 9.6 L g/dL
(12.0-16.0)
Hct 31.2 L %
(37.0-47.0)
MCV 78.2 L fL
(81.0-99.0)
MCH 24.1 L pg
(27.0-31.0)
MCHC 30.8 L g/dL
(33.0-37.0)
RDW 15.2 H %
(11.5-14.5)
Plt Count 69 L 10^3/uL
(130-400)
MPV 10.6 H fL
(7.4-10.4)
Absolute Lymphs (auto) 0.5 L 10^3/uL
(1.2-3.4)
Neutrophils % 85.6 H %
(42.2-75.2)
Lymphocytes % 7.4 L %
(20.5-51.1)
Potassium 3.4 L mmol/L
(3.5-5.1)
Carbon Dioxide 35 H mmol/L
(22-30)
BUN 28 H mg/dl
(7-17)
% Saturation 18 L %
(20-50)
12/27/23 10:42
12/27/23 10:41
Vital Signs
Initial and Last Documented VS:
Initial Vital Signs
Temp Pulse Resp BP Pulse Ox
97.6 F 78 18 193/94 93
12/27/23 10:03 12/27/23 10:03 12/27/23 10:03 12/27/23 10:03 12/27/23 10:03
Last Documented Vital Signs
Temp Pulse Resp BP Pulse Ox
97.6 F 76 16 178/93 97
12/27/23 10:03 12/27/23 13:00 12/27/23 13:18 12/27/23 13:00 12/27/23 13:00
MDM/Problems Addressed
Differential Diagnosis Includes:
COPD exacerbation, less concern for infectious etiology such as COVID, flu or pneumonia, less concern for ACS/angina
MDM/Problems Addressed:
73-year-old female presenting back to the emergency department for shortness of breath and wheezing, was at the outpatient lab today getting lab work done due to her chronic anemia/thrombocytopenia. She did use her nebulizer and Anoro and
budesonide medications this morning but without much relief. Patient with recent admission here and discharged on December 17 for similar but stating she does not feel as bad this time as previous. Oxygen saturation at 93% on room air but given her
history of COPD this is likely baseline. Will treat with IV steroid, DuoNeb and check labs as well as x-ray imaging.
Chronic conditions affecting care: COPD
Acute Exacerbation and/or Progression of Chronic Illness: COPD
*Radiology
Radiology exam reviewed: preliminary read by ED provider (No consolidations or effusions)
*Pulse Oximetry
Patient hypoxic: no
*EKG
Interpreted by ED Provider?: Yes
Heart Rate: 75
Rate: normal
Rhythm: sinus
Thayer: normal axis
Interval: short IA
Ischemia: other (T wave inversion V3 through V6)
*Chiller Technician Interpretation
Rate: normal
Rhythm: sinus
*Critical Care Note
Total Time (30-74mins, 75-104mins- exclusive of procedures): Not Applicable
Data Reviewed
Review of Other/Old Records Reveals: Labs, Records and Discharge Summary
Patient Management
Discussion with other providers: Hospitalist
Escalation/DeEscalation of care consider admission/obs:
Patient states her chest still feels tight and she still has notable wheeze. She is declining any further nebulizer stating she feels as if her symptoms get worse with the nebulizer. Patient's pulse ox did drop a little bit into the upper 80s so
she was placed on 2 L nasal cannula. Given her symptoms combined with her chronic medical conditions feel it be best served for the patient to be admitted. Patient in agreement with plan. Hospitalist team accepts for continued evaluation and
treatment.
ED Attending Note
-
Portions of this chart may have been created with voice recognition software.� Occasional wrong word or��sound alike� substitutions may have occurred due to the inherent limitations of voice recognition software.
Discharge Plan
Departure
Patient Disposition: Admit
Date of Disposition: 12/27/23
Time of Disposition: 12:51
Presentation/result/management discussed w/ accepting MD/DO: Hospitalist
Discharge Problem:
Acute exacerbation of chronic obstructive pulmonary disease
Prescriptions:
No Action
propranolol 60 MG capsule,extended release 24 hr
60 mg PO DAILY
omeprazole 40 mg Capsule,Delayed Release(Dr/Ec)
40 mg PO DAILY
valsartan 160 mg Tablet
160 mg PO DAILY
Patient Comments:
-patient said she still takes this but ecw show dicontinued
trazodone 100 mg tablet
100 mg PO HS
budesonide 0.5 mg/2 mL suspension for nebulization
0.5 mg inhalation R BID
albuterol sulfate 90 mcg/actuation HFA aerosol inhaler
1 puff INHALATION R Q4HPRN PRN (Reason: sob/wheezing)
Anoro Ellipta 62.5-25 mcg/actuation blister with device
1 inh INHALATION R DAILY
prednisone 10 mg Tablet
See Rx Instructions .ROUTE .COMPLEX Qty: 45 0RF
Rx Instructions:
Take By Mouth:
50 mg daily x3 days, 40 mg daily x3 days,
30 mg daily x3 days, 20 mg daily x3 days,
10 mg daily x3 days
Referrals:
Fer Motta MD [Family Provider] -
Interventions
Interventions:
*Risk Screen - Suicide Last Done: 12/27/23 10:03
*General Assessment Last Done: 12/27/23 10:03
*Neglect/Abuse Screening Last Done: 12/27/23 10:03
ED- Fall Risk Assessment Last Done: 12/27/23 10:00
ED- Cardiac Assessment Last Done: 12/27/23 10:00
Discharge Date and Time
Print Language: BELARUSIAN
[2023-12-27] MEDS: SOLU-MEDROL PF 60 MG IV (10:53)
[2023-12-27] MEDS: DUONEB 3 ML INH (10:54)
[2023-12-27 11:17] LABS: Blood Urea Nitrogen 28 mg/dl (7-17); Calcium 9.1 mg/dl (8.4-10.2); Carbon Dioxide 35 mmol/L (22-30); Chloride 101 mmol/L (98-107); Glucose 95 mg/dl (70-99); Iron 80 ug/dl (37-170); Potassium 3.4 mmol/L (3.5-5.1); Sodium 144 mmol/L (135-145); eGFR > 60.00
[2023-12-27 11:20] LABS: % Eosinophils 0.8 % (0-6); % Immature Granulocytes 0.3 % (0-0.5); % Monocytes 5.9 % (1.7-9.3); Absolute Eosinophils 0.1 10^3/uL (0-0.7); Absolute Lymphocytes 0.5 10^3/uL (1.2-3.4); Absolute Monocytes 0.4 10^3/uL (0.1-0.6); Absolute Neutrophils 5.7 10^3/uL (1.4-6.5); Hematocrit 31.2 % (37.0-47.0); Hemoglobin 9.6 g/dL (12.0-16.0); Mean Corp Hgb Conc. 30.8 g/dL (33.0-37.0); Mean Corpuscular Hgb 24.1 pg (27.0-31.0); Mean Corpuscular Volume 78.2 fL (81.0-99.0); Nucleated Red Blood Cells % 0 %; Red Blood Cell Count 3.99 10^6/uL (4.20-5.40); Red Cell Dist. Width 15.2 % (11.5-14.5); White Blood Cell Count 6.7 10^3/uL (4.8-10.8)
[2023-12-27 11:21] LABS: % Lymphocytes 7.4 % (20.5-51.1); % Neutrophils 85.6 % (42.2-75.2)
[2023-12-27 11:25] LABS: NT-proBNP 2490 pg/ml
[2023-12-27 11:26] LABS: Percent Saturation 18 % (20-50); Total Iron Binding Capacity 438 ug/dl (265-497)
[2023-12-27 11:53] LABS: Ferritin 17.8 ng/ml (11.1-264.0)
[2023-12-27 12:50] LABS: Mean Platelet Volume 10.6 fL (7.4-10.4); Platelet Count 69 10^3/uL (130-400)
--- NOTE | 2023-12-27 13:11 | HPS.HSE ---
Family Physician
-
Family Physician: Fer Motta
Chief Complaint
-
Shortness of breath
History of Present Illness
73-year-old female who has been home from prior admission only 12 days and states that this morning when she woke up she had shortness of breath and reports she could not breathe. She denies headache, fever, chills, wheezing, chest pain,
palpitations, abdominal pain, nausea, vomiting, diarrhea, urinary symptoms. In the ER she was 89-90% on room air and was requiring 2 L of nasal cannula. It was also noted on labs her bicarb was elevated at 35 of which she has never been.
The patient with recent admission on 12/11 - 12/15/2023 secondary to COPD exacerbation with hypoxia she was on Decadron which was switched to oral prednisone taper. She had intermittent chest pain with negative troponins that was felt to be likely
due to GERD/esophageal dysphagia and was advised to increase Protonix to twice daily. She was evaluated by speech therapy and her diet was downgraded to soft bite-size with GI follow-up recommended. She is chronic pancytopenia due to cirrhosis of
the liver she was neutropenic on recent admission at 1.5 on 12/12 although WBC today is 6.7. Other past medical history includes COPD, pancytopenia, alcoholic cirrhosis of the liver, hep C HTN, depression, dysphagia on soft bite-size diet, former
smoker, chronic cachexia, anxiety
Medical History
Past Medical History
Past Medical History: Reports Other
Additional Past Medical History:
COPD
Pulmonary nodules
Pancytopenia/anemia chronic
Alcoholic cirrhosis of the liver
Alcohol abuse stopped 2022 prior greater than 20 years 6-12 pack beer and occasional mixed drinks
Upper GI bleed secondary to duodenitis 12/23/2011
Esophageal varices without bleeding grade 1 on Endo 12/23/2011
Hep C -patient reports treated 30 years ago then again greater than 4 years ago by doing some GI
HTN/Hx uncontrolled HTN
Depression
Anxiety
GERD/esophageal dysphagia
dysphagia on soft bite-size diet-evaluated by speech December
Former smoker 12 years to 3 pack/day quit age 28
chronic cachexia
Past Surgical History: Reports Other
Additional Past Surgical History:
Perforated ulcer area [facility] 11/2008
EGD 08/10/2011
Colonoscopy 07/2011
Social History
Tobacco: Former Smoker (Smoked 12 years to 3 pack/day quit age 28)
Alcohol: Former (Quit 1 year ago drank greater than 20 years 6 to 12 pack of beer and occasional mixed drinks)
Drug: None
Personal: Single
Living: With Family (Currently lives at son Eleno's house but she states she is homeless and needs to look for her own place)
Employment: Disabled
Family History
Family History: Not pertinent
Allergies / Home Medications
Allergies reflects when Allergies were last updated in [facility].
Home Medications with original date entered in [facility]
Allergy/Medication List:
Allergies
Allergy/AdvReac Type Severity Reaction Status Date / Time
No Known Allergies Allergy Verified 12/27/23 10:03
Home Medications
propranolol 60 mg capsule,24 hr,extended release 60 mg PO DAILY Blood Pressure 01/30/18
omeprazole 40 mg capsule,delayed release 40 mg PO DAILY Gastrointestinal Issue 01/22/23
valsartan 160 mg tablet 160 mg PO DAILY Blood Pressure 01/22/23
albuterol sulfate 90 mcg/actuation aerosol inhaler 1 puff inhalation R Q4HPRN PRN sob/wheezing 12/12/23
budesonide 0.5 mg/2 mL suspension for nebulization 0.5 mg inhalation R BID Lung/Breathing Issues 12/12/23
trazodone 100 mg tablet 100 mg PO HS Mental Health/Anxiety 12/12/23
umeclidinium 62.5 mcg-vilanterol 25 mcg/actuation powdr for inhalation (Anoro Ellipta) 1 inh inhalation R DAILY Lung/Breathing Issues 12/12/23
prednisone 10 mg tablet See Rx Instructions .Route .COMPLEX #45 tabs 12/15/23
Review of Systems
-
History Source: Patient
A 12 point ROS was completed and negative except as noted: Yes
Constitutional: Denies Fever, Weight Loss, Fatigue or Chills
EENT: Reports Runny Nose (Chronic); Denies Sore Throat
Respiratory: Reports Trouble Breathing; Denies Cough
Cardiac: Denies Chest Pain, Diaphoresis, Palpitations or Syncope
Abdomen/GI: Denies Abdominal Pain, Nausea, Vomiting, Diarrhea, Constipated, Bloody Stools or Black Stools
: Denies Dysuria, Frequency, Flank Pain, Incontinence, Difficulty Voiding or Urgency
Musculoskeletal: Denies Joint Pain or Edema
Skin: Denies Itching or Rash
Neurological: Denies Dizzy, Headache or Weakness
Endocrine: Reports No Symptoms
Hematologic/Lymphatic: Reports No Symptoms
Psych: Reports Calm
Physical Exam
Vital Signs
Vital Signs
Temp Pulse Resp BP Pulse Ox
97.6 F 80 18 187/76 90
12/27/23 10:03 12/27/23 12:34 12/27/23 12:34 12/27/23 12:34 12/27/23 12:34
Physical Exam
General: Comfortable, Conversant and Cachectic; No Pain or Fever
HEENT: NormoCephalic, Anicteric, PERRLA, [place] Conjunctivae, No Ptosis and Oxygen (2 liters)
Respiratory: Decreased Breath Sounds (Bilaterally throughout both lung perkins); No Wheezes, Rales or Rhonchi
Cardiac: S1/S2 and Regular Rhythm; No Murmur, Rub, Gallop or Peripheral Edema
Breast: Deferred by me
GI: Soft, Non Tender, Non Distended, Normal Bowel Sounds and No Hepatosplenomegaly
Rectal: Deferred by Provider
Genito-urinary: Deferred by me
Musculoskeletal: No Clubbing, No Cyanosis and No Edema
Skin: Warm and Dry; No Rash
Neuro: AO x 3, No Motor Deficits, Nonfocal/grossly intact, Cranial Nerves Intact and No Sensory Deficits; No Slurred Speech, Facial Droop, Tremors or Sedated
Psych: Calm
Laboratory Results
-
12/27/23 10:42
12/27/23 10:41
Impression/Plan
-
Impression/plan:
Admit to MedSurg
#Acute on chronic hypoxic resp insuff 03/14 COPD
#Acute co2 retention
-82% RA after Walking to [facility] on no oxygen, 2 liters nc placed 02 now 94%
-IV Decadron given in ER has been on Prednisone 50 mg x3, 40x3, 30 x3 20x3 ( she is on Day 2 of 20 mg prednisone)
-We will change prednisone from 20 mg a day to Prednisone 40 mg daily x 5 days
-Albuterol nebs scheduled and as needed
-Continue budesonide, Anoro Ellipta or equivalent
-Follow CBC, CMP
-Consult PT for walking pulse ox to see if patient qualifies for home O2
#Hypokalemia
K3.4 will give 40 KCl follow BMP
#Uncontrolled HTN/HTN�benign
BP 187/76
-Continue propranolol 60 mg daily
-Will increase valsartan from 160 mg daily to Valsartan 320 mg daily due to persistent uncontrolled HTN today and recent admission 12/11 - 12/15/2023
#Former smoker
-stopped smoking age 28 prior 12 years 2-3 ppd
# Alcoholic cirrhosis
#Former alcohol abuse
# Hx hep C-patient reports was treated 30 years ago and then again greater than 4 years ago by Aggie [facility]IVERO
# Chronic pancytopenia/Hx neutropenia
-WBC 6.7 -improved from 1.5 on 12/13/2023
-Hgb 9.6-appears baseline
PLT 69 <from recent admission which was in the 120s
-Follow CBC
#History of intermittent chest pain was ruled related to GERD/Esophageal Dysphagia
#Upper GI bleed secondary to duodenitis 12/23/2011
#Esophageal varices without bleeding grade 1 on Endo 12/23/2011
-Continue chronic Protonix 40 mg twice daily
-Patient follows with [facility] cardiology
2D echo 12/15/2023: EF 60 to 65%, normal LVS, LVSF, no wall abnormalities no valvular disease, normal PASP
#Dysphagia Hx
Had speech swallow eval who downgraded diet to soft bite sized
-Patient was to follow-up with GI
#Chronic cachexia�BMI 15.4
-Consult dietary
DVT prophylaxis
SCDs due to platelets of 69
Full code
--- NOTE | 2023-12-27 14:04 | W.PN.UPDATE ---
Addendum entered and electronically signed by Elaine Cameron MD 12/27/23 14:19:
ABG cancelled.
Original Note:
Update Note
Progress Note Update
This is an addendum to the H&P written by Shonda Mensah on 12/27/2023.� Patient seen and examined independently with JOURNEYMAN MOLDER.
73-year-old female past medical history of COPD, hypertension, liver cirrhosis, esophageal varices, prior upper GI bleeding, hepatitis C, chronic anemia/thrombocytopenia, GERD, anxiety/depression, presenting with shortness of breath/pleuritic chest
discomfort.� She was recently admitted for acute COPD exacerbation and currently on steroid taper.� She feels like she did not improve completely after recent treatment.
Patient with uncontrolled hypertension in the 180s.�
On examination there are decreased breath sounds and no wheezing. Chest x-ray unremarkable.� Patient does not appear to be in acute COPD exacerbation but may require chronic home oxygen.� Saturating 89 to 90% while sitting but will need to do walk
test to see if she qualifies for home oxygen.�
Received methylprednisolone in ER.� Increase prednisone to 40 mg. Continue nebs.��Check ABG to quantify PaO2 and check for hypercarbia given bicarb of 35 increased from previously.
Increase valsartan from 160 to 320 mg.�
--- NOTE | 2023-12-27 14:08 | EDRN ---
Patient nasal o2 turned off for room air ABG per orders. Patient needed to use the bathroom while waiting for Respiratory to come. Patient ambulated to the bathroom and back to the stretcher unassisted. Room air SPO2 post exertion was 82%,
respirations were 26, HR was 95 with heart monitor in place. notified Shonda and hospitalist of these findings. Patient placed on nasal cannula 2 liters with SPO2 increasing to 92% shortly after.
[2023-12-27 14:12] LABS: Troponin I 0.018 ng/ml
[2023-12-27] MEDS: DIOVAN 320 MG PO (17:29)
[2023-12-27] MEDS: KCL 40 MEQ PO (17:29)
--- NOTE | 2023-12-27 17:30 | PTCARENOTE ---
Received pt from ER.Pt awake, alert and oriented x3. Pt has no c/o chest pain at this time, continues with shortness of breath. 98% on 2L. Pt bp elevated since admission, given increased dose of diovan as ordered. Other VSS.Pt oriented to room,call
castellano within reach, plan of care continues.
[2023-12-27] MEDS: VENTOLIN NEBULES INH (19:13)
[2023-12-27] MEDS: VENTOLIN NEBULES 2.5 MG INH (19:13)
[2023-12-27] MEDS: PULMICORT 0.5 MG INH (19:14)
[2023-12-27] MEDS: DESYREL 100 MG PO (21:14)
[2023-12-27] MEDS: PROTONIX 40 MG PO (21:14)
[2023-12-28 06:00] VITALS: BMI 16.5
[2023-12-28 07:05] VITALS: BP 138/88
[2023-12-28] MEDS: STRIVERDI RESPIMAT 2 PUFF INH (07:29)
[2023-12-28] MEDS: SPIRIVA RESPIMAT 2.5 MCG 2 PUFF INH (07:29)
[2023-12-28] MEDS: PULMICORT 0.5 MG INH ×2 (07:29→19:10)
[2023-12-28] MEDS: VENTOLIN NEBULES 2.5 MG INH ×4 (07:30→19:10)
[2023-12-28 07:31] LABS: ALT (SGPT) 23 U/L (0-35); AST (SGOT) 22 U/L (14-36); Alkaline Phosphatase 53 U/L (38-126); Blood Urea Nitrogen 36 mg/dl (7-17); Calcium 8.3 mg/dl (8.4-10.2); Carbon Dioxide 30 mmol/L (22-30); Chloride 104 mmol/L (98-107); Estimated Creatinine Clearance 27 ml/min; Glucose 116 mg/dl (70-99); Potassium 4.2 mmol/L (3.5-5.1); Sodium 145 mmol/L (135-145); Total Bilirubin 0.6 mg/dl (0.2-1.3); Total Protein 5.7 g/dl (6.3-8.2); eGFR 48.09
[2023-12-28 08:23] LABS: Hematocrit 26.5 % (37.0-47.0); Hemoglobin 8.1 g/dL (12.0-16.0); Mean Corp Hgb Conc. 30.6 g/dL (33.0-37.0); Mean Corpuscular Hgb 24.2 pg (27.0-31.0); Mean Corpuscular Volume 79.1 fL (81.0-99.0); Mean Platelet Volume 11.2 fL (7.4-10.4); Nucleated Red Blood Cells % 0 %; Platelet Count 59 10^3/uL (130-400); Red Blood Cell Count 3.35 10^6/uL (4.20-5.40); Red Cell Dist. Width 15.2 % (11.5-14.5)
[2023-12-28 08:24] LABS: % Eosinophils 0.4 % (0-6); % Immature Granulocytes 0.6 % (0-0.5); % Lymphocytes 8.9 % (20.5-51.1); % Monocytes 6.4 % (1.7-9.3); % Neutrophils 83.7 % (42.2-75.2); Absolute Lymphocytes 0.5 10^3/uL (1.2-3.4); Absolute Monocytes 0.3 10^3/uL (0.1-0.6); Absolute Neutrophils 4.2 10^3/uL (1.4-6.5)
[2023-12-28] MEDS: DIOVAN 320 MG PO (09:03)
[2023-12-28] MEDS: INDERAL LA 60 MG PO (09:03)
[2023-12-28] MEDS: PROTONIX 40 MG PO ×2 (09:03→21:30)
[2023-12-28] MEDS: DELTASONE 40 MG PO (09:03)
--- NOTE | 2023-12-28 10:25 | W.PN.HOSP.TC ---
Today's Communication/Plan
-
see bold
Assessment / Plan
Assessment / Plan
Gen: NAD, AAOx3.
Eyes: EOMI, PERRLA, no scleral icterus.
Neck: supple.
CV: RRR, +S1/S2, no m/r/g.
Resp: distant BS, CTAB, no rales, wheezes, or rhonchi.
Abd: +BS, soft, NT, ND
Skin: No rashes.
Neuro: CN 2-12 intact, non-focal.
Psych: Normal mood and affect.
COPD:
-not in acute exac
-Patient was recently discharged after being admitted for acute COPD exacerbation on 12/15/23. She presented with complaint of worsening shortness of breath. In the ER the pt was 89-90% on RA and was requiring 2L NC O2.
-Received Solu-Medrol in the ER, prednisone increased to 40mg daily
-CXR: Chronic emphysematous changes without new focal airspace disease.
-suspect pt simply needs home O2, home O2 eval
Other problems:
Hypokalemia, resolved
Hypertensive urgency: cont Propranolol, Valsartan increased
Alcoholic cirrhosis due to former alcohol abuse disorder
HCV s/p tx x 2
Chronic pancytopenia
GERD: cont PPI
UGIB due to duodenitis 12/23/2011
Esophageal varices without bleeding grade 1 on Endo 12/23/2011
h/o dysphagia Hx: soft bite sized diet
Chronic cachexia
FULL/SCDs
Anticipated Discharge: Within 24 hours
Subjective/Interval History
-
Date of Service: December 28, 2023
SOB slightly improved from admission.
Objective Data
-
Labs:
Laboratory Results
12/28/23
05:22
WBC 5.0
Hgb 8.1 L
Hct 26.5 L
Plt Count 59 L
Sodium 145
Potassium 4.2
Chloride 104
Carbon Dioxide 30
BUN 36 H
Creatinine 1.2 H
Glucose 116 H
Calcium 8.3 L
Total Bilirubin 0.6
AST 22
ALT 23
Alkaline Phosphatase 53
Vital Signs:
Vital Signs
Temp Pulse Resp BP Pulse Ox
98.4 F 84 16 138/88 98
12/28/23 07:05 12/28/23 09:03 12/28/23 07:33 12/28/23 09:03 12/28/23 08:55
I&O
12/27/23 12/28/23 12/29/23
06:59 06:59 06:59
Intake Total 0 / 0
Balance 0 / 0
[2023-12-28] MEDS: TYLENOL 650 MG PO (12:02)
[2023-12-28] MEDS: FLEXERIL 5 MG PO (13:41)
--- NOTE | 2023-12-28 13:56 | CM ---
Met with patient at the bedside; Initial assessment completed
Pharmacy verified: [facility] [address]
Patient is living with her son in his one floor apartment; no steps; she has her own bedroom and bath (tub w/shower)
PLOF: reported that she is independent with ambulation; managing her personal care is challenging
No SNF utilization history
Active with [facility] for home health services
She thinks that her family will transport her home
Plan: Discharge to home with home health when medically stable; CM will monitor for needs (May need Home Oxygen)
[2023-12-28 15:28] VITALS: BP 170/91
[2023-12-28 16:41] VITALS: BP 171/78
--- NOTE | 2023-12-28 16:50 | PTCARENOTE ---
Dr. godoy made aware pt. b/p elevated. No new orders at this time. Pt. with no c/o pain at this time, call castellano within reach.
[2023-12-28] MEDS: DESYREL 100 MG PO (21:30)
[2023-12-28 23:54] VITALS: BP 155/78
[2023-12-29 06:00] VITALS: BMI 17.2
[2023-12-29] MEDS: SPIRIVA RESPIMAT 2.5 MCG 2 PUFF INH (07:11)
[2023-12-29] MEDS: STRIVERDI RESPIMAT 2 PUFF INH (07:11)
[2023-12-29] MEDS: VENTOLIN NEBULES 2.5 MG INH ×4 (07:11→20:37)
[2023-12-29] MEDS: PULMICORT 0.5 MG INH ×2 (07:11→20:37)
[2023-12-29 07:40] VITALS: BP 160/87
[2023-12-29] MEDS: DIOVAN 320 MG PO (08:00)
[2023-12-29] MEDS: INDERAL LA 60 MG PO (08:01)
[2023-12-29] MEDS: PROTONIX 40 MG PO ×2 (08:01→20:25)
[2023-12-29] MEDS: FLUSH (NSS) 1 FLUSH IV (08:01)
[2023-12-29] MEDS: DELTASONE 40 MG PO (08:01)
[2023-12-29 08:23] LABS: % Basophils 0.2 % (0-2); % Eosinophils 0.8 % (0-6); % Immature Granulocytes 0.5 % (0-0.5); % Lymphocytes 8.7 % (20.5-51.1); % Monocytes 4.7 % (1.7-9.3); % Neutrophils 85.1 % (42.2-75.2); Absolute Eosinophils 0.1 10^3/uL (0-0.7); Absolute Lymphocytes 0.6 10^3/uL (1.2-3.4); Absolute Monocytes 0.3 10^3/uL (0.1-0.6); Absolute Neutrophils 5.6 10^3/uL (1.4-6.5); Hematocrit 28.3 % (37.0-47.0); Hemoglobin 8.4 g/dL (12.0-16.0); Mean Corp Hgb Conc. 29.7 g/dL (33.0-37.0); Mean Corpuscular Volume 80.9 fL (81.0-99.0); Mean Platelet Volume 11.9 fL (7.4-10.4); Nucleated Red Blood Cells % 0 %; Platelet Count 58 10^3/uL (130-400); Red Cell Dist. Width 15.2 % (11.5-14.5); White Blood Cell Count 6.6 10^3/uL (4.8-10.8)
[2023-12-29 09:07] LABS: ALT (SGPT) 39 U/L (0-35); AST (SGOT) 44 U/L (14-36); Albumin 3.1 g/dl (3.5-5.0); Alkaline Phosphatase 57 U/L (38-126); Blood Urea Nitrogen 37 mg/dl (7-17); Calcium 8.5 mg/dl (8.4-10.2); Carbon Dioxide 31 mmol/L (22-30); Chloride 103 mmol/L (98-107); Estimated Creatinine Clearance 29 ml/min; Glucose 78 mg/dl (70-99); Potassium 4.2 mmol/L (3.5-5.1); Sodium 143 mmol/L (135-145); Total Bilirubin 0.6 mg/dl (0.2-1.3); Total Protein 5.8 g/dl (6.3-8.2); eGFR 48.09
--- NOTE | 2023-12-29 09:07 | VNURNOTE ---
Chart reviewed, patient is current with [facility] nursing, INTEGRATION ARCHITECT and RENTAL COORDINATOR. Resumption referral placed in [facility].
--- NOTE | 2023-12-29 09:25 | W.PN.HOSP.TC ---
Addendum entered and electronically signed by Jenni Smith MD 12/29/23 17:10:
I saw and evaluated the patient independently. I reviewed the resident�s note and agree with findings and plan as documented by Dr. Sanchez.
GENERAL: cachectic female in no apparent distress
HEENT: NC/AT--on O2 NC
HEART: regular rate and rhythm, +S1, +S2
LUNGS : clear to auscultation bilaterally
ABDOM: soft, nontender, distended anthony after eating, + bowel sounds
EXT: no cyanosis, clubbing, or edema
NEUROLOGIC: grossly intact
acute hypoxemic respiratory insufficiency--possibly from COPD, malignancy, PE--remains on O2 and will need assessment for home O2 needs, cont steroids--consideration of zithromax MWF--will check Chest CT to r/o PE--consider pulm consult
new complaint to us today--Abdominal distention/bloating anthony post prandial--check CT scan abdomen/pelvis--has Hx of liver cirrhosis from alcohol and hepatitis C---check CT scan abdomen/pelvis to eval for ascites/malignancy--consider GI eval if scans
negative---hx of dysphagia and pt supposed to be on soft bite sized diet
Hypertensive urgency--Continue propranolol and increase valsartan to 320 mg
GERD--Continue omeprazole 40 mg daily
Hypokalemia--Now resolved
History of alcoholic cirrhosis secondary to former alcohol abuse disorder/History of HCV status post treatment--likely cause of thrombocytopenia
History of chronic pancytopenia--pt on steroids which is likely why not neutropenic currently
Chronic cachexia--as per nutrition: underweight BMI--but likely due to pulm cachexia, possibly cirrhosis, etc
FULL/SCDs
Original Note:
Today's Communication/Plan
-
.
Assessment / Plan
Assessment / Plan
Patient is a 73-year-old female with past medical history of COPD, hypertension, liver cirrhosis, esophageal varices, prior upper GI bleeding, hepatitis C, chronic anemia, GERD, anxiety/depression who presented to [facility] with shortness
of breath and pleuritic chest pain on 12/26.
COPD:
Not currently in acute exacerbation
Patient currently on 2 L nasal cannula oxygen after O2 saturation dropped to 90% this morning.
Received Solu-Medrol in the ER, prednisone increased to 40mg daily
Consider CT chest/abdomen/pelvis for ongoing shortness of breath and discomfort
Case management request for home O2 evaluation ordered for today
Abdominal distention/bloating
New onset abdominal distention and bloating after meals
Consider x-ray abdomen or CT abdomen for further evaluation
Patient currently passing gas, lower suspicion of SBO
Hypertensive urgency:
Continue propranolol and increase valsartan to 320 mg
GERD:
Continue omeprazole 40 mg daily
Hypokalemia:
Now resolved
History of alcoholic cirrhosis secondary to former alcohol abuse disorder
History of HCV status post treatment
History of chronic pancytopenia
History of dysphagia, continue soft bite-size diet
Chronic cachexia
FULL/SCDs
----
CXR:
Lungs: The lungs are hyperinflated. No pleural effusion or pneumothorax.
Heart: Cardiac and mediastinal contours are unremarkable. Atherosclerotic calcifications of the aortic arch.
Osseous structures: No acute osseous abnormality. Degenerative changes of the thoracic spine.
IMPRESSION:
Chronic emphysematous changes without new focal airspace disease.
Anticipated Discharge: Within 24 hours
Subjective/Interval History
-
Date of Service: December 29, 2023
Patient is a 73-year-old female with past medical history of COPD, hypertension, liver cirrhosis, esophageal varices, prior upper GI bleeding, hepatitis C, chronic anemia, GERD, anxiety/depression who presented to [facility] with shortness
of breath and pleuritic chest pain on 12/26. She was recently admitted for acute COPD exacerbation 12 days ago and was on steroid taper, however felt symptoms were not resolved. Per weekend notes, patient did not seem to acute COPD exacerbation,
but when oxygen supplementation was removed, O2 sat dropped to 90%. Overnight she reports no headaches, nausea, vomiting, numbness or tingling in extremities. She she did report having shortness of breath this morning, prior to restarting nasal
cannula, sensation of someone sitting on her chest, and abdominal discomfort. Over the last few days she reports that after eating each meal she becomes distended and bloated, with gas. She states she has recently lost weight, unsure how much.
Objective Data
-
Labs:
Laboratory Results
12/29/23
06:47
WBC 6.6
Hgb 8.4 L
Hct 28.3 L
Plt Count 58 L
Sodium 143
Potassium 4.2
Chloride 103
Carbon Dioxide 31 H
BUN 37 H
Creatinine 1.2 H
Glucose 78
Calcium 8.5
Total Bilirubin 0.6
AST 44 H
ALT 39 H
Alkaline Phosphatase 57
Vital Signs:
Vital Signs
Temp Pulse Resp BP Pulse Ox
97.5 F 81 18 160/87 90
12/29/23 07:40 12/29/23 08:01 12/29/23 07:40 12/29/23 08:01 12/29/23 09:01
I&O
12/28/23 12/29/23 12/30/23
06:59 06:59 06:59
Intake Total 0 / 0 1200 / 1200
Balance 0 / 0 1200 / 1200
Review of Systems
-
History Source: Patient
Constitutional: Reports No Symptoms
Respiratory: Reports Trouble Breathing
Cardiac: Reports No Symptoms
Abdomen/GI: Reports Abdominal Pain
Musculoskeletal: Reports No Symptoms
Physical Exam
-
General: No Apparent Distress, Comfortable, Conversant and Cachectic
HEENT: Normocephalic, Atraumatic and Oxygen
Respiratory: Clear to Auscultation, Non Labored Respirations and Decreased Breath Sounds
Cardiac: Regular Rhythm and S1/S2
GI: Soft, Nontender and Distended
Musculoskeletal: No Clubbing, No Cyanosis and No Edema
Skin: Warm and Dry
Neuro: AO x 3, No Motor Deficits and No Sensory Deficits
Psych: Calm
Data Reviewed
-
Diagnostic Radiology: Report Reviewed by me
Labs: Labs Reviewed by me and Discussed with Physician
[2023-12-29 11:12] VITALS: BMI 17.2
[2023-12-29 11:28] VITALS: BP 173/86
[2023-12-29] MEDS: TUMS CHEWABLE TABLET 200 MG PO (14:30)
[2023-12-29 15:29] VITALS: BP 176/85
[2023-12-29] MEDS: MYLICON 80 MG PO ×2 (15:56→22:03)
--- NOTE | 2023-12-29 16:18 | PTCARENOTE ---
Pt AAO x3, SANTANA well, OOB to BR; cristian well. VSS. On nc 1 lpm- pulseox 98%, pt with (+) slight COKER; no c/o SOB. Abd soft, rounded, cristian PO; pt c/o 'feeling gassy/bloated'; pt for CT of abd/pelvis. Voiding in BR without difficulty. Resting in bed
at present. Will continue to monitor.
--- NOTE | 2023-12-29 16:25 | CM ---
Patient seen at bedside with physicians. Patient for home O2 reassessment, [facility] working with patient and will [facility]. CM will continue to follow for discharge planning needs.
Plan; home with [facility]/home O2.
[2023-12-29] MEDS: TYLENOL 650 MG PO (20:25)
[2023-12-29] MEDS: DESYREL 100 MG PO (22:03)
[2023-12-29 23:08] VITALS: BP 165/75
[2023-12-30 06:00] VITALS: BMI 17.6
[2023-12-30 07:05] VITALS: BP 194/82
[2023-12-30 07:19] LABS: % Eosinophils 0.7 % (0-6); % Immature Granulocytes 0.3 % (0-0.5); % Lymphocytes 7.7 % (20.5-51.1); % Monocytes 5.8 % (1.7-9.3); % Neutrophils 85.5 % (42.2-75.2); Absolute Eosinophils 0.1 10^3/uL (0-0.7); Absolute Lymphocytes 0.6 10^3/uL (1.2-3.4); Absolute Monocytes 0.4 10^3/uL (0.1-0.6); Absolute Neutrophils 6.2 10^3/uL (1.4-6.5); Hematocrit 29.7 % (37.0-47.0); Hemoglobin 8.6 g/dL (12.0-16.0); Mean Corpuscular Hgb 23.2 pg (27.0-31.0); Mean Corpuscular Volume 80.1 fL (81.0-99.0); Mean Platelet Volume 11.4 fL (7.4-10.4); Nucleated Red Blood Cells % 0 %; Platelet Count 60 10^3/uL (130-400); Red Blood Cell Count 3.71 10^6/uL (4.20-5.40); Red Cell Dist. Width 15.2 % (11.5-14.5); White Blood Cell Count 7.2 10^3/uL (4.8-10.8)
[2023-12-30] MEDS: VENTOLIN NEBULES 2.5 MG INH ×3 (07:20→15:34)
[2023-12-30] MEDS: PULMICORT 0.5 MG INH (07:20)
[2023-12-30 07:37] LABS: ALT (SGPT) 38 U/L (0-35); AST (SGOT) 40 U/L (14-36); Albumin 3.1 g/dl (3.5-5.0); Alkaline Phosphatase 53 U/L (38-126); Blood Urea Nitrogen 36 mg/dl (7-17); Carbon Dioxide 33 mmol/L (22-30); Chloride 101 mmol/L (98-107); Estimated Creatinine Clearance 29 ml/min; Glucose 84 mg/dl (70-99); Potassium 4.4 mmol/L (3.5-5.1); Sodium 139 mmol/L (135-145); Total Bilirubin 0.7 mg/dl (0.2-1.3); Total Protein 5.9 g/dl (6.3-8.2); eGFR 48.09
[2023-12-30] MEDS: STRIVERDI RESPIMAT 2 PUFF INH (07:41)
[2023-12-30] MEDS: SPIRIVA RESPIMAT 2.5 MCG 2 PUFF INH (07:41)
[2023-12-30] MEDS: DIOVAN 320 MG PO (08:12)
[2023-12-30] MEDS: INDERAL LA 60 MG PO (08:13)
[2023-12-30] MEDS: DELTASONE 40 MG PO (08:13)
[2023-12-30] MEDS: PROTONIX 40 MG PO (08:13)
--- NOTE | 2023-12-30 13:09 | RESPNOTE ---
Respiratory: Pulse Oximetry on Room Air 87% HR 76. Walked patient 450 feet on 3 LPM Oxygen nasal cannula Pulse oximetry 92% HR 98. Patient tolerated walk well.
--- NOTE | 2023-12-30 14:16 | CM ---
Patient seen at bedside with physicians. Patient completed IMM and signed form placed on chart. Patient for discharge home with [facility] to follow and home O2 from [facility]. Patient states her family will come for her after 3pm. CM will continue to follow
for discharge planning needs.
Plan; home with [facility] and home O2.
--- NOTE | 2023-12-30 14:23 | W.PN.HOSP.TC ---
Addendum entered and electronically signed by Jenni Smith MD 12/30/23 18:49:
I saw and evaluated the patient independently. I reviewed the resident�s note and agree with findings and plan as documented by Dr. Sanchez.
GENERAL: cachectic female in no apparent distress
HEENT: NC/AT--on O2 NC
HEART: regular rate and rhythm, +S1, +S2
LUNGS : clear to auscultation bilaterally
ABDOM: soft, nontender, distended, + bowel sounds
EXT: no cyanosis, clubbing, or edema
NEUROLOGIC: grossly intact
acute hypoxemic respiratory insufficiency--possibly from COPD, malignancy, PE--remains on O2 and will need assessment for home O2 needs, cont steroids--consideration of zithromax MWF--will check Chest CT to r/o PE--f/u with pulm as outpt
Patient is in need of oxygen at 3 liters/minute via nasal cannula continuously due to pulse oximetry of 87% on room air at rest. Oxygen will help to improve hypoxemia. Patient is mobile within the home. DuoNeb therapy has been tried and is
ineffective in treating hypoxemia related symptoms. Oxygen is needed to improve symptoms.
Abdominal distention/bloating anthony post prandial-- CT scan abdomen/pelvis with chronic findings of cirrhosis, etc--has Hx of liver cirrhosis from alcohol and hepatitis C-- GI eval as outpt as scans negative---hx of dysphagia and pt supposed to be on
soft bite sized diet
MAYRA by definition but not clinically significant--follow as outpt
Hypertensive urgency--Continue propranolol and increase valsartan to 320 mg
GERD--Continue omeprazole 40 mg daily
Hypokalemia--Now resolved
History of alcoholic cirrhosis secondary to former alcohol abuse disorder/History of HCV status post treatment--likely cause of thrombocytopenia
History of chronic pancytopenia--pt on steroids which is likely why not neutropenic currently
Chronic cachexia--as per nutrition: underweight BMI--but likely due to pulm cachexia, possibly cirrhosis, etc
FULL/SCDs
Addendum entered and electronically signed by Guero Sanchez DO, Resident 12/30/23 15:31:
Addendum to 12/29 note regarding abnormal value as below:
MAYRA
At time of admission patient's creatinine on 12/26 was 0.9 and by 12/27 was 1.2. Patient meets criteria for MAYRA as value increased by 0.3 in less than 48 hours
Continue to monitor outpatient
Increase hydration/ nutrition
Original Note:
Today's Communication/Plan
-
.
Assessment / Plan
Assessment / Plan
Patient is a 73-year-old female with past medical history of COPD, hypertension, liver cirrhosis, esophageal varices, prior upper GI bleeding, hepatitis C, chronic anemia, GERD, anxiety/depression who presented to [facility] with shortness
of breath and pleuritic chest pain on 12/26.
COPD:
Not currently in acute exacerbation
Patient currently on 1 L nasal cannula oxygen after O2 saturation dropped to 90% yesterday
Received Solu-Medrol in the ER, prednisone increased to 40mg daily. Will continue patient on prednisone taper after discharge
CT chest showed no acute PE or malignancy
Patient is in need of oxygen at 2 liters/minute via nasal cannula continuously due to pulse oximetry of 87% on room air at rest. Oxygen will help to improve hypoxemia. Patient is in need of oxygen at 3 L via nasal cannula during ambulation (sat
92%). Patient is mobile within the home. DuoNeb therapy has been tried and is ineffective in treating hypoxemia related symptoms. Oxygen is needed to improve symptoms.
Abdominal distention/bloating
New onset abdominal distention and bloating after meals
CT abdomen pelvis showed no malignancy, but showed mild ascites and cirrhosis. Not enough to tap
Continue gas relief medication as needed after meals
Patient currently passing gas, lower suspicion of SBO
Hypertensive urgency
Continue propranolol and increase valsartan to 320 mg
GERD
Continue omeprazole 40 mg daily
Hypokalemia
Now resolved
History of alcoholic cirrhosis secondary to former alcohol abuse disorder
History of HCV status post treatment-likely cause of thrombocytopenia
History of chronic pancytopenia -currently on steroids
History of dysphagia, continue soft bite-size diet
Chronic cachexia
FULL/SCDs
----
CXR:
Lungs: The lungs are hyperinflated. No pleural effusion or pneumothorax.
Heart: Cardiac and mediastinal contours are unremarkable. Atherosclerotic calcifications of the aortic arch.
Osseous structures: No acute osseous abnormality. Degenerative changes of the thoracic spine.
IMPRESSION:
Chronic emphysematous changes without new focal airspace disease.
CT C/A/P:
IMPRESSION:
CHEST:
1. No CTA evidence for an acute pulmonary thromboembolism.
2. Moderate centrilobular emphysema.
ABDOMEN/PELVIS:
1. Hepatic cirrhosis with findings of portal hypertension including splenomegaly and portosystemic vascular collaterals.
2. Mild abdominal ascites.
3. Moderate pelvic ascites.
4. Atrophic right kidney with striated hypoenhancement and more focal wedge-shaped hypoattenuation in the midpole suspicious for pyelonephritis. Renal infarction could have a similar imaging appearance.
4. Severe aortobiiliac calcified atherosclerosis
Anticipated Discharge: Today
Subjective/Interval History
-
Date of Service: December 30, 2023
Patient is a 73-year-old female with past medical history of COPD, hypertension, liver cirrhosis, esophageal varices, prior upper GI bleeding, hepatitis C, chronic anemia, GERD, anxiety/depression who presented to [facility] with shortness
of breath and pleuritic chest pain on 12/26. She was recently admitted for acute COPD exacerbation and was on steroid taper, however felt symptoms were not resolved. Patient did not seem to acute COPD exacerbation, but when oxygen supplementation
was removed, O2 sat dropped to 90%. Overnight she reports no headaches, nausea, vomiting, numbness or tingling in extremities. She is currently on 1 L nasal cannula for oxygen support and reports no acute overnight events. She continues to have
abdominal distention after meals however medication support yesterday helped her a lot. She reports continued mild chest discomfort with breathing, but no other acute overnight events.
Objective Data
-
Labs:
Laboratory Results
12/30/23
06:33
WBC 7.2
Hgb 8.6 L
Hct 29.7 L
Plt Count 60 L
Sodium 139
Potassium 4.4
Chloride 101
Carbon Dioxide 33 H
BUN 36 H
Creatinine 1.2 H
Glucose 84
Calcium 9.0
Total Bilirubin 0.7
AST 40 H
ALT 38 H
Alkaline Phosphatase 53
Vital Signs:
Vital Signs
Temp Pulse Resp BP Pulse Ox
98.8 F 78 18 194/82 96
12/30/23 07:05 12/30/23 11:19 12/30/23 07:42 12/30/23 07:05 12/30/23 07:22
I&O
12/29/23 12/30/23 12/31/23
06:59 06:59 06:59
Intake Total 1200 / 1200 1380 / 1380
Balance 1200 / 1200 1380 / 1380
Review of Systems
-
History Source: Patient
All other systems: Reviewed and negative
Respiratory: Reports Other (Mild sensation of chest pressure)
Abdomen/GI: Reports Bloated
Physical Exam
-
General: No Apparent Distress, Conversant and Cachectic
HEENT: Normocephalic and Atraumatic
Respiratory: Clear to Auscultation and Decreased Breath Sounds
Cardiac: Regular Rhythm and S1/S2
GI: Soft, Nontender, Nondistended and Normal Bowel Sounds
Musculoskeletal: No Clubbing, No Cyanosis and No Edema
Skin: Warm and Dry
Neuro: AO x 3
Psych: Calm
Data Reviewed
-
CT Scan: Report Reviewed by me and Discussed with Physician
Labs: Labs Reviewed by me and Discussed with Physician
Old Records: Reviewed
--- NOTE | 2023-12-30 14:47 | VNURNOTE ---
Home 02 paperwork faxed to [place] at [facility].
--- NOTE | 2023-12-30 15:00 | PN.CDI ---
CDI
- -
CDI:
Physician Documentation Request
Admit Date: 12/27/23 14:54
Dear Doctor Laura,
Patient presented to ED for evaluation of shortness of breath.
Creatinine results:
Laboratory Tests
12/27/23 12/28/23 12/30/23
10:41 05:22 06:33
Creatinine 0.9 1.2 H 1.2 H
Could you please provide a diagnosis that supports the above lab abnormalities and additional evaluation/ monitoring:
MAYRA
Abnormal lab value clinically insignificant
Other
Criteria for MAYRA*
1 Increase in serum creatinine by > or = to 0.3 mg/dL (> or = to 26.5 micromol/L) within 48 hours, OR
2 Increase in serum creatinine to > or = to 1.5 times baseline, which is known or presumed to have occurred within 7 days, OR
3 Urine volume < 0.5 nL/kg/hour for six hours
Use of terms such as suspected, likely, concern for, or probable (associated with a specific diagnosis that is being evaluated, monitored, or treated as if it exists) are acceptable and can be coded in the inpatient setting, when documented at the
time of discharge.
Thank you,
Corina Ervin RN, BSN
CDI Specialist
tiger text
Please use your independent medical judgment in providing your response.
--- NOTE | 2023-12-30 16:04 | W.DCSUMMARY ---
Addendum entered and electronically signed by Guero Sanchez DO, Resident 12/31/23 16:43:
Clarification regarding COPD: Based on assessment over the weekend and assessment during her stay under our care, unlikely that patient had new exacerbation of COPD, rather just required continuous oxygen support for existing chronic COPD condition
Addendum entered and electronically signed by Jenni Smith MD 12/30/23 18:50:
Read, reviewed, and agree. See same day progress note for additional details. Time spent coordinating care, DC planning, review of DC plan of care with resident, transition of care, review of records in EMR, med rec, consults, notes, d/w
consultants, nursing, family, and CM = 45minutes
Original Note:
Discharge Summary
Discharge Data
Date of Admission: 12/27/23
Date of Discharge: 12/30/23
Total time spent discharging patient (in min): 45
-
Pending Results: No
Hospital Course
Presenting symptoms: Shortness of breath
Admission diagnosis: Acute exacerbation of chronic COPD
Hospital course: Patient is a 73-year-old female with past medical history of COPD, hypertension, liver cirrhosis, esophageal varices, prior upper GI bleeding, hepatitis C, chronic anemia, GERD, anxiety/depression who presented to [place] [facility] with shortness of breath and pleuritic chest pain on 12/26. She was recently admitted for acute COPD exacerbation and was on steroid taper, however felt symptoms were not resolved. CT chest showed no signs of malignancy or PE. Prednisone
dose was increased to 40 mg. During admission, patient was placed on 2 L nasal cannula over the weekend and upon removal of support, oxygen saturation dropped to 90% on room air and patient began feeling short of breath. When replaced on 1 L nasal
cannula, oxygen saturation returned to above 92% and patient was comfortable. Patient was assessed for home oxygen and patient is in need of oxygen at 2 liters/minute via nasal cannula continuously due to pulse oximetry of 87% on room air at rest
during evaluation. Oxygen will help to improve hypoxemia. Patient is in need of oxygen at 3 L via nasal cannula during ambulation (sat 92%). Patient is mobile within the home. DuoNeb therapy has been tried and is ineffective in treating hypoxemia
related symptoms. Oxygen is needed to improve symptoms. Additionally, during stay patient was experiencing abdominal distention and bloating after meals. CT abdomen pelvis showed no malignancies, but showed mild ascites and cirrhosis. If symptoms
progress, consider GI evaluation outpatient. However symptoms were relieved with gas relief medications.
COPD:
Continue prednisone taper for 12 days as prescribed. Patient is in need of oxygen at 2 liters/minute via nasal cannula continuously due to pulse oximetry of 87% on room air at rest. Oxygen will help to improve hypoxemia. Patient is in need of
oxygen at 3 L via nasal cannula during ambulation (sat 92%). Patient is mobile within the home. DuoNeb therapy has been tried and is ineffective in treating hypoxemia related symptoms. Oxygen is needed to improve symptoms.
Abdominal distention/bloating
New onset abdominal distention and bloating after meals. CT abdomen pelvis showed no malignancy, but showed mild ascites and cirrhosis. Continue gas relief medication as needed after meals. Consider following up with GI outpatient for further
evaluation.
Hypertensive urgency
Continue propranolol and increase valsartan to 320 mg
MAYRA
At time of admission patient's creatinine on 12/26 was 0.9 and by 12/27 was 1.2. Patient meets criteria for MAYRA as value increased by 0.3 in less than 48 hours. Continue to monitor outpatient. Increase hydration/ nutrition.
GERD
Continue omeprazole 40 mg daily
Hypokalemia
Now resolved
History of alcoholic cirrhosis secondary to former alcohol abuse disorder
History of HCV status post treatment-likely cause of thrombocytopenia
History of chronic pancytopenia -currently on steroids
History of dysphagia, continue soft bite-size diet
Chronic cachexia
Imaging reviewed:
CXR (12/26):
IMPRESSION:
Chronic emphysematous changes without new focal airspace disease.
CT CAP (12/28):
IMPRESSION:
CHEST:
1. No CTA evidence for an acute pulmonary thromboembolism.
2. Moderate centrilobular emphysema.
ABDOMEN/PELVIS:
1. Hepatic cirrhosis with findings of portal hypertension including splenomegaly and portosystemic vascular collaterals.
2. Mild abdominal ascites.
3. Moderate pelvic ascites.
4. Atrophic right kidney with striated hypoenhancement and more focal wedge-shaped hypoattenuation in the midpole suspicious for pyelonephritis. Renal infarction could have a similar imaging appearance.
4. Severe aortobiiliac calcified atherosclerosis.
Discharge Plan
-
Patient Disposition: Home (Routine Discharge)
Discharge Diagnosis/Procedures: Acute exacerbation of chronic obstructive pulmonary disease
Condition: Fair
Diet: As tolerated and Other diet
Additional Diets: Soft bite-size
Activity: As tolerated
Driving Restrictions: As prior to admission
Bathing Restrictions: None
Other Services: VN
Referrals:
Fer Motta MD [Family Provider] - in one to two weeks
Additional Discharge Medication Instructions: Please complete prednisone taper as described below.
Consider follow-up with GI if abdominal symptoms progress
Prescriptions:
New
simethicone 80 mg Tablet,Chewable
80 mg PO TIDPRN PRN (Reason: gas/bloating) 90 Days Qty: 90 0RF
valsartan 320 mg tablet
320 mg PO DAILY Qty: 90 2RF
prednisone 10 mg tablet
10 mg PO DIRECTED Qty: 30 0RF
Rx Instructions:
40 mg (4 pills)X3 days, then 30 mg(3 pills)X3 days, then 20 mg (2 pills)x3 days, then 10 mg (1 pill)x3 days
Continued
propranolol 60 MG capsule,extended release 24 hr
60 mg PO DAILY
omeprazole 40 mg Capsule,Delayed Release(Dr/Ec)
40 mg PO DAILY
trazodone 100 mg tablet
100 mg PO HS
budesonide 0.5 mg/2 mL suspension for nebulization
0.5 mg inhalation R BID
albuterol sulfate 90 mcg/actuation HFA aerosol inhaler
1 puff INHALATION R Q4HPRN PRN (Reason: sob/wheezing)
Anoro Ellipta 62.5-25 mcg/actuation blister with device
1 inh INHALATION R DAILY
Discontinued
valsartan 160 mg Tablet
160 mg PO DAILY
Patient Comments:
-patient said she still takes this but ecw show dicontinued
prednisone 10 mg Tablet
See Rx Instructions .ROUTE .COMPLEX Qty: 45 0RF
Rx Instructions:
Take By Mouth:
50 mg daily x3 days, 40 mg daily x3 days,
30 mg daily x3 days, 20 mg daily x3 days,
10 mg daily x3 days
Discharge Orders:
Discharge Patient (As Directed); Ordered 12/30/23
Ordered By: Guero Sanchez
Discharge Date and Time
Print Language: KUWAITI
[2023-12-30 16:07] VITALS: BP 186/94
--- NOTE | 2023-12-31 09:11 | PN.CDI ---
CDI
- -
CDI:
Physician Documentation Request
Admit Date: 12/27/23 14:54
Dear Doctor Laura,
12/27-12/29 progress notes state 'COPD not in acute exacerbation'. 12/27 note goes on to say 'Patient was recently discharged after being admitted for acute COPD exacerbation on 12/15/23. She presented with complaint of worsening shortness of
breath.....suspect pt simply needs home O2, home O2 eval'
12/29 Discharge summary states 'Acute exacerbation of chronic COPD'
In an attempt to clarify potentially conflicting documentation, please clarify which of the following reflects the patients condition:
COPD without exacerbation
COPD with exacerbation
Other
Use of terms such as suspected, likely, concern for, or probable (associated with a specific diagnosis that is being evaluated, monitored, or treated as if it exists) are acceptable and can be coded in the inpatient setting, when documented at the
time of discharge.
Thank you,
Corina Ervin RN, BSN
CDI Specialist
tiger text
Please use your independent medical judgment in providing your response.
== END 2023-12-30 18:25 | disposition home health service (06) | DRG 206 ==
LOC: 4 EAST ACU 14:54
PROVIDERS: Clinical Nurse Specialist Family Health; Physician Assistant Medical; ADMITTING PHYSICIAN Hospitalist; ATTENDING PHYSICIAN Internal Medicine; EMERGENCY PHYSICIAN Emergency Medicine; FAMILY PHYSICIAN Internal Medicine
DX: R09.02 Hypoxemia (principal); D61.818 Other pancytopenia; Z68.1 Body mass index [BMI] 19.9 or less, adult; R64 Cachexia; N17.9 Acute kidney failure, unspecified; I85.10 Secondary esophageal varices without bleeding; J44.9 Chronic obstructive pulmonary disease, unspecified; I10 Essential (primary) hypertension; K21.9 Gastro-esophageal reflux disease without esophagitis; D64.9 Anemia, unspecified; K70.31 Alcoholic cirrhosis of liver with ascites; F32.A Depression, unspecified; F41.9 Anxiety disorder, unspecified; E87.6 Hypokalemia; I16.0 Hypertensive urgency; R06.89 Other abnormalities of breathing; B19.20 Unspecified viral hepatitis C without hepatic coma; J43.2 Centrilobular emphysema; Z79.899 Other long term (current) drug therapy; Z87.891 Personal history of nicotine dependence; Z79.51 Long term (current) use of inhaled steroids
CPT/HCPCS: 71046; 71275; 74177; 80048; 80053; 82728; 83540; 83550; 83880; 84484; 85025; 93005; 94640; 96374; 99285; Q9967

== ENCOUNTER 2024-01-02 11:39 | Emergency (ER) | payer MEDICARE, MEDICAID, SELFPAY ==
[2024-01-02 11:41] VITALS: BP 174/114
[2024-01-02 11:49] VITALS: BMI 18.4
[2024-01-02 12:09] LABS: % Basophils 0.2 % (0-2); % Eosinophils 0.5 % (0-6); % Immature Granulocytes 0.3 % (0-0.5); % Lymphocytes 3.9 % (20.5-51.1); % Monocytes 3.9 % (1.7-9.3); % Neutrophils 91.2 % (42.2-75.2); Absolute Lymphocytes 0.3 10^3/uL (1.2-3.4); Absolute Monocytes 0.3 10^3/uL (0.1-0.6); Hematocrit 25.9 % (37.0-47.0); Hemoglobin 8.2 g/dL (12.0-16.0); Mean Corp Hgb Conc. 31.7 g/dL (33.0-37.0); Mean Corpuscular Hgb 23.9 pg (27.0-31.0); Mean Corpuscular Volume 75.5 fL (81.0-99.0); Mean Platelet Volume 10.9 fL (7.4-10.4); Nucleated Red Blood Cells % 0 %; Platelet Count 60 10^3/uL (130-400); Red Blood Cell Count 3.43 10^6/uL (4.20-5.40); Red Cell Dist. Width 15.7 % (11.5-14.5); White Blood Cell Count 6.6 10^3/uL (4.8-10.8)
[2024-01-02 12:21] LABS: Troponin I 0.019 ng/ml
[2024-01-02 12:31] LABS: ALT (SGPT) 33 U/L (0-35); AST (SGOT) 38 U/L (14-36); Albumin 3.7 g/dl (3.5-5.0); Alkaline Phosphatase 51 U/L (38-126); Blood Urea Nitrogen 27 mg/dl (7-17); Calcium 8.6 mg/dl (8.4-10.2); Carbon Dioxide 33 mmol/L (22-30); Chloride 91 mmol/L (98-107); Estimated Creatinine Clearance 52 ml/min; Glucose 117 mg/dl (70-99); Potassium 4.2 mmol/L (3.5-5.1); Sodium 132 mmol/L (135-145); Total Bilirubin 1.3 mg/dl (0.2-1.3); Total Protein 6.5 g/dl (6.3-8.2); eGFR > 60.00
[2024-01-02 12:38] VITALS: BP 153/141
--- NOTE | 2024-01-02 12:39 | ED.GENMED ---
History of Present Illness
General
Chief Complaint: Breathing Problem
Time Seen by Provider: 01/02/24 12:39
History of Present Illness
History of Present Illness:
TIME OF INITIAL ENCOUNTER: 12:30 PM
HPI: Patient was initially here at [facility]. However on his way there he became rather short of breath. He was recently diagnosed with COPD and was recently given portable oxygen. She apparently has been unable to use the
portable oxygen machine she was given. She came in here for further evaluation.
EXAM:
GENERAL: Appears somewhat weak and debilitated
HEENT: Moist oral mucosa
CARDIOVASCULAR: No murmurs, normal heart rate, regular rhythm, No chest wall tenderness
PULMONARY: No respiratory distress, breath sounds are somewhat equally decreased
ABDOMEN: Soft with no peritoneal signs, no tenderness
NEUROLOGIC: Good strength all extremities, no coordination deficits
PSYCHIATRIC: Appropriate mental status, normal insight and judgement
EXTREMITIES: Nontender, no edema, moves all extremities equally
SKIN: No rash, no lesions
NUMBER AND COMPLEXITY OF PROBLEMS ADDRESSED AT THE ENCOUNTER
� Chronic conditions affecting care: COPD
� Acute Exacerbation and/or Progression of Chronic Illness: This is a chronic problem
� Differential Diagnosis includes: Equipment malfunction, worsening COPD
AMOUNT AND/OR COMPLEXITY OF DATA TO BE REVIEWED AND ANALYZED
� I performed an independent evaluation of and my interpretation is:
EKG: Sinus 67, normal axis, T wave abnormality noted in V5 V6 likely related to LVH
CT:
X-rays: Chest x-ray shows no new change
Laboratory Studies: White count 6.6, hemoglobin 8.2, sodium 132, bicarb 33, troponin 0.019
Other:
� Review of other/old records: I reviewed the discharge summaries from earlier this month. She most recently was admitted with COPD and was prescribed a prednisone taper.
� Clinical information was obtained by an independent historian: None needed
� Prescriptions/Medications Considered but not given:
� Further testing considered but not performed:
RISK OF COMPLICATIONS AND/OR MORBIDITY OR MORTALITY OF PATIENT MANAGEMENT
� Social determinants of health affecting care: Lives at home, recently placed on portable oxygen
� Discussion with other providers: I discussed with respiratory therapist�see below
� Escalation of care including admission/observation vs risk of discharge considered: Respiratory therapist came down to evaluate the situation. The patient only intermittently receives oxygen and was placed on continuous flow.
Education given to the patient. Sats have remained reassuring while on oxygen in the emergency department.
ANY OTHER UPDATES:
1:15 PM: I reassessed patient and she is continuing to do well and reassurance/education regarding the portable oxygen was given to the patient
Past History
Past History
ED Past Medical History: COPD, GERD, HTN, Psychiatric (Depression, insomnia) and Other (Gastritis/ulcer, PNA, Cirrhosis of the liver, GI bleeding. Hemorrhoids. Hep C, Ulcers, Esopohageal varices. UTI, Anemia, )
ED Past Surgical History: Other
Social History
Tobacco: Former smoker
Alcohol: Occasional
Drug: Former user and IVDA
Personal: Single
Living: with family
Employment: Not employed
Family History
Family History: Other (Noncontributory); Negative Early CAD
Phy Exam
Physical Exam
Physical Exam:
See HPI
Scores
Heart Failure Risk
Heart Failure Risk Score: Not Applicable
Course
Orders/Labs/Results
Orders:
Orders
01/02/24 11:48
Electrocardiogram (*1) Urgent
Reason for Study: Chest Pain
01/02/24 11:49
EKG- Treatment ONCE
CR Chest - 2 Views Urgent
Reason For Exam: SOB
01/02/24 11:50
Complete Blood Count/With Diff Urgent
Troponin I Urgent
01/02/24 12:11
Comprehensive Metabolic Panel Urgent
Abnormal Lab Results
01/02/24 01/02/24
11:50 12:11
RBC 3.43 L 10^6/uL
(4.20-5.40)
Hgb 8.2 L g/dL
(12.0-16.0)
Hct 25.9 L %
(37.0-47.0)
MCV 75.5 L fL
(81.0-99.0)
MCH 23.9 L pg
(27.0-31.0)
MCHC 31.7 L g/dL
(33.0-37.0)
RDW 15.7 H %
(11.5-14.5)
Plt Count 60 L 10^3/uL
(130-400)
MPV 10.9 H fL
(7.4-10.4)
Absolute Lymphs (auto) 0.3 L 10^3/uL
(1.2-3.4)
Neutrophils % 91.2 H %
(42.2-75.2)
Lymphocytes % 3.9 L %
(20.5-51.1)
Sodium 132 L mmol/L
(135-145)
Chloride 91 L mmol/L
(98-107)
Carbon Dioxide 33 H mmol/L
(22-30)
BUN 27 H mg/dl
(7-17)
Glucose 117 H mg/dl
(70-99)
AST 38 H U/L
(14-36)
01/02/24 11:50
01/02/24 12:11
Vital Signs
Initial and Last Documented VS:
Initial Vital Signs
Temp Pulse Resp BP Pulse Ox
36.5 C 72 18 174/114 98
01/02/24 11:41 01/02/24 11:41 01/02/24 11:41 01/02/24 11:41 01/02/24 11:41
Last Documented Vital Signs
Temp Pulse Resp BP Pulse Ox
36.5 C 67 20 174/114 100
01/02/24 11:41 01/02/24 12:38 01/02/24 12:38 01/02/24 11:41 01/02/24 12:38
*Critical Care Note
Total Time (30-74mins, 75-104mins- exclusive of procedures): Not Applicable
ED Attending Note
-
Portions of this chart may have been created with voice recognition software.� Occasional wrong word or��sound alike� substitutions may have occurred due to the inherent limitations of voice recognition software.
Discharge Plan
Departure
Patient Disposition: Home (Routine Discharge)
Date of Disposition: 01/02/24
Time of Disposition: 13:51
Patient with high blood pressure during this ER visit?: Yes
Discharge Problem:
COPD (chronic obstructive pulmonary disease)
Prescriptions:
No Action
propranolol 60 MG capsule,extended release 24 hr
60 mg PO DAILY
omeprazole 40 mg Capsule,Delayed Release(Dr/Ec)
40 mg PO DAILY
trazodone 100 mg tablet
100 mg PO HS
budesonide 0.5 mg/2 mL suspension for nebulization
0.5 mg inhalation R BID
albuterol sulfate 90 mcg/actuation HFA aerosol inhaler
1 puff INHALATION R Q4HPRN PRN (Reason: sob/wheezing)
Anoro Ellipta 62.5-25 mcg/actuation blister with device
1 inh INHALATION R DAILY
simethicone 80 mg Tablet,Chewable
80 mg PO TIDPRN PRN (Reason: gas/bloating) 90 Days Qty: 90 0RF
valsartan 320 mg tablet
320 mg PO DAILY Qty: 90 2RF
prednisone 10 mg tablet
10 mg PO DIRECTED Qty: 30 0RF
Rx Instructions:
40 mg (4 pills)X3 days, then 30 mg(3 pills)X3 days, then 20 mg (2 pills)x3 days, then 10 mg (1 pill)x3 days
Referrals:
Fer Motta MD [Family Provider] -
Activity Restrictions/Additional Instructions:
I did speak to the respiratory therapist. When the settings are on one of the numbers, it only intermittently gives oxygen. When the numbers are preceded by 'CF', it means that you will be continually getting oxygen. The chest x-ray shows no
changes�consistent with your known diagnosis of COPD/emphysema. Other than some anemia (but near baseline), no significant concerning abnormality on lab work. 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
doctor. Return here if worse or other concerns.
Interventions
Interventions:
*Risk Screen - Suicide Last Done: 01/02/24 11:41
*General Assessment Last Done: 01/02/24 11:41
*Neglect/Abuse Screening Last Done: 01/02/24 11:41
ED- Cardiac Assessment Last Done: 01/02/24 12:20
ED- Pulmonary Assessment Last Done: 01/02/24 12:20
Discharge Date and Time
Print Language: CRO[place]
[2024-01-02 13:00] VITALS: BP 122/110
== END 2024-01-02 15:06 | disposition home or self-care (01) ==
LOC: EMR 11:39
PROVIDERS: EMERGENCY PHYSICIAN Emergency Medicine; FAMILY PHYSICIAN Internal Medicine
DX: F32.A Depression, unspecified (principal); I11.9 Hypertensive heart disease without heart failure; K21.9 Gastro-esophageal reflux disease without esophagitis; J44.9 Chronic obstructive pulmonary disease, unspecified; K74.60 Unspecified cirrhosis of liver; Z87.19 Personal history of other diseases of the digestive system; Z87.440 Personal history of urinary (tract) infections; Z87.891 Personal history of nicotine dependence
CPT/HCPCS: 99283; 71046; 80053; 84484; 85025; 93005

== ENCOUNTER → 2024-01-05 16:14 | Outpatient (REF) | payer MEDICARE, MEDICAID, SELFPAY ==
[2024-01-05 11:14] LABS: Iron 47 ug/dl (37-170)
[2024-01-05 11:15] LABS: % Eosinophils 1.3 % (0-6); % Immature Granulocytes 0.5 % (0-0.5); % Lymphocytes 7.4 % (20.5-51.1); % Monocytes 6.9 % (1.7-9.3); % Neutrophils 83.9 % (42.2-75.2); Absolute Eosinophils 0.1 10^3/uL (0-0.7); Absolute Lymphocytes 0.3 10^3/uL (1.2-3.4); Absolute Monocytes 0.3 10^3/uL (0.1-0.6); Absolute Neutrophils 3.3 10^3/uL (1.4-6.5); Hematocrit 26.8 % (37.0-47.0); Mean Corp Hgb Conc. 29.9 g/dL (33.0-37.0); Mean Corpuscular Hgb 23.8 pg (27.0-31.0); Mean Corpuscular Volume 79.8 fL (81.0-99.0); Mean Platelet Volume 11.2 fL (7.4-10.4); Nucleated Red Blood Cells % 0 %; Platelet Count 65 10^3/uL (130-400); Red Blood Cell Count 3.36 10^6/uL (4.20-5.40); Red Cell Dist. Width 16.4 % (11.5-14.5); White Blood Cell Count 3.9 10^3/uL (4.8-10.8)
[2024-01-05 11:24] LABS: Percent Saturation 10 % (20-50); Total Iron Binding Capacity 439 ug/dl (265-497)
[2024-01-05 11:49] LABS: Ferritin 15.4 ng/ml (11.1-264.0)
== END ==
LOC: OIDL 16:14
PROVIDERS: ATTENDING PHYSICIAN Internal Medicine Hematology & Oncology
DX: R91.1 Solitary pulmonary nodule (principal)
CPT/HCPCS: 82728; 83540; 83550; 85025

== ENCOUNTER 2024-01-08 02:55 | Inpatient (IN) | payer MEDICARE, OTHER, SELFPAY ==
[2024-01-07 23:34] VITALS: BMI 17.5
[2024-01-07 23:36] VITALS: BP 163/107
[2024-01-07 23:52] LABS: % Basophils 0.2 % (0-2); % Eosinophils 1.5 % (0-6); % Immature Granulocytes 0.4 % (0-0.5); % Lymphocytes 6.3 % (20.5-51.1); % Monocytes 8.8 % (1.7-9.3); % Neutrophils 82.8 % (42.2-75.2); Absolute Eosinophils 0.1 10^3/uL (0-0.7); Absolute Lymphocytes 0.3 10^3/uL (1.2-3.4); Absolute Monocytes 0.5 10^3/uL (0.1-0.6); Absolute Neutrophils 4.3 10^3/uL (1.4-6.5); Hematocrit 31.7 % (37.0-47.0); Hemoglobin 9.1 g/dL (12.0-16.0); Mean Corp Hgb Conc. 28.7 g/dL (33.0-37.0); Mean Corpuscular Hgb 23.1 pg (27.0-31.0); Mean Corpuscular Volume 80.5 fL (81.0-99.0); Mean Platelet Volume 10.6 fL (7.4-10.4); Nucleated Red Blood Cells % 0 %; Platelet Count 93 10^3/uL (130-400); Red Blood Cell Count 3.94 10^6/uL (4.20-5.40); Red Cell Dist. Width 16.4 % (11.5-14.5); White Blood Cell Count 5.2 10^3/uL (4.8-10.8)
[2024-01-08] VITALS (10 sets, daily range): BP systolic 124–183; BP diastolic 58–100; BMI 17.4
[2024-01-08 00:07] LABS: ALT (SGPT) 25 U/L (0-35); AST (SGOT) 32 U/L (14-36); Albumin 3.6 g/dl (3.5-5.0); Alkaline Phosphatase 68 U/L (38-126); Blood Urea Nitrogen 25 mg/dl (7-17); Calcium 9.3 mg/dl (8.4-10.2); Carbon Dioxide 34 mmol/L (22-30); Chloride 96 mmol/L (98-107); Estimated Creatinine Clearance 44 ml/min; Glucose 136 mg/dl (70-99); Sodium 137 mmol/L (135-145); Total Protein 6.4 g/dl (6.3-8.2); eGFR > 60.00
[2024-01-08 00:16] LABS: NT-proBNP 1510 pg/ml; Troponin I 0.047 ng/ml
--- NOTE | 2024-01-08 00:16 | ED.GENMED ---
History of Present Illness
General
Chief Complaint: Chest Pain
Time Seen by Provider: 01/07/24 23:51
History of Present Illness
History of Present Illness:
73-year-old female with history of COPD, recently started on home O2, presenting to the emergency department for shortness of breath and chest pain. Patient reports symptoms have been ongoing throughout the day. She tried her breathing treatments
at home without relief. Reports some chest pressure as well. Denies known cardiac issues. She reports that she is not always on oxygen, however today has had to use it all day. Denies fever or known sick contacts. Does report some abdominal
bloating without any report of vomiting or changes in stool. Denies any history of intubation. No additional history or symptoms reported at this time
Past History
Past History
ED Past Medical History: COPD, GERD, HTN, Psychiatric (Depression, insomnia) and Other (Gastritis/ulcer, PNA, Cirrhosis of the liver, GI bleeding. Hemorrhoids. Hep C, Ulcers, Esopohageal varices. UTI, Anemia, )
ED Past Surgical History: Other
Social History
Tobacco: Former smoker
Alcohol: Occasional
Drug: Former user and IVDA
Personal: Single
Living: with family
Employment: Not employed
Family History
Family History: Other (Noncontributory); Negative Early CAD
Phy Exam
Physical Exam
Physical Exam:
General: Tachypneic
HEENT: protecting airway
Neck: appears supple
CV: Tachycardic, regular rhythm, no evidence of cyanosis
Resp: Tachypneic with diminished air movement bilaterally, expiratory wheezing
Abd: Soft and non-distended, no tenderness to palpation, reducible ventral hernia
Extremities: No deformities, no swelling, no erythema, pulses and sensation intact
Neuro: alert, no focal neurologic deficit
: deferred
Rectal: deferred
Psych: Normal affect
Skin: Intact
Scores
Heart Score for Chest Pain Patients
STEMI patient?: No
History: Moderately Suspicious
ECG: Nonspecific Repolarization
Age: >/= 65 years
Risk Factors: 1 or 2 Risk Factors
Troponin: >1 - <3 x Normal Limit
Heart Score for Chest Pain Patients: 6
Heart Score Risk: 20.3% MACE over next 6 weeks
Course
Orders/Labs/Results
Orders:
Orders
01/07/24 23:34
Electrocardiogram (*1) Urgent
Reason for Study: Chest Pain
EKG- Treatment ONCE
01/07/24 23:41
Complete Blood Count/With Diff Urgent
Comprehensive Metabolic Panel Urgent
NT-proBNP Urgent
Troponin I Urgent
01/08/24 00:07
Ipratropium/Albuterol Sulfate [Duoneb] 9 ml INH R NOW STA
MethylPREDNISolone PF [Solu-Medrol Pf] 125 mg IV NOW STA
01/08/24 00:19
CT Chest Pe Study Urgent
Comment:
Reason For Exam: hypoxia and tachycardia
01/08/24 00:20
COVID-19 Antigen Urgent
Source: Nasal Swab
Influenza A+B Rapid Molecular Urgent
MAYRA Source: Nasal Swab
Specimen Description:
01/08/24 01:26
Morphine Sulfate 4 mg IV NOW STA
01/08/24 02:37
Admit/Transfer Patient As Directed
Co-Sign Provider:
Level of Care: Inpatient admission
Assign to:: Telemetry
Physician / Group: hospitalist
Diagnosis: chest pain
Reason for Telemetry: Chest Pain syndromes
Date to Stop Telemetry: 01/10/24
Time to Stop Telemetry: 11:00
Reason for Hospitalization: respiratory distress
Expected length of stay greater than two midnights?: Yes
ELOS- Estimated Length of Stay in days: 2
I certify the patient meets the requirements for IP care: Yes
PRN Pain Medication Management As Directed
May give lesser potent ordered pain med per pt: Yes
preference::
Protocol:: Medication orders for pain may be administered in a
manner that supports deferring to patient preference
when the pt is:
- Requesting an ordered lesser potent pain medication.
Least to most potent pain medications are defined
as: acetaminophen < NSAID < tramadol < opioids
(morphine, oxycodone, hydromorphone).
- Requesting a lesser dose of the same medication IF
ORDERED.
- Requesting a less intrusive route of administration
if both routes are prescribed by the provider (PO <
IV).
01/08/24 02:38
Code Status As Directed
Resuscitation Status: Full Code
01/08/24 04:32
Troponin I Q3H
Comment: at admit & Q3H for 3 total including ED draws, obtain ECG with each level
0.9% Sodium Chloride 500 ml [Nss] 500 ml IV BOLUS
Acetaminophen [Tylenol] 650 mg PO Q4HPRN PRN
Ipratropium/Albuterol Sulfate [Duoneb] 3 ml INH R Q4HPRN PRN
Nitroglycerin Sublingual [Nitrostat (Sublingual)] 0.4 mg SL [id number] PRN
Simethicone [Mylicon] 80 mg PO TIDPRN PRN
01/08/24 04:32
Echo 2D MMode Color/Doppler Routine
Reason for Study: chest pain
CARDIOLOGY CONSULT Routine
Consulting Provider: Tyler Pickett
Was physician already notified: No
Reason for consult: chest pain
Consult Notification Routine
Specialty to Notify: Cardiology
Activity As Directed
Activity Level: With Assistance
INT (Intravenous Needle Therapy) As Directed
Comment: maintain peripheral IV access
Intake/ Output As Directed
Frequency: Per unit guidelines
Stool for occult blood [Hemetest Stools] As Directed
Vital Signs As Directed
Frequency: q4h
Weight As Directed
Frequency: Daily
O2 Therapy [RESP] Routine
Nasal Cannula Liter Flow: 3 LPM
Titrate/Wean O2 to maintain O2 sat greater than (%): 90
DX Deep Vein Thrombosis Video Routine
01/08/24 Breakfast
Cholesterol Lowering
At Your Request: Full Participation
Cholesterol Lowering: Sodium, 2 Gram
Basic Metabolic Panel IN AM
Cardiovascular Evaluation IN AM
Complete Blood Count/No Diff IN AM
Glycohemoglobin (HgbA1c) IN AM
Venous Blood Gas IN AM
%Oxygen/Room Air: 32
01/08/24 07:32
Troponin I Q3H
Comment: at admit & Q3H for 3 total including ED draws, obtain ECG with each level
01/08/24 08:00
Budesonide [Pulmicort] 0.5 mg INH R BID
Ipratropium/Albuterol Sulfate [Duoneb] 3 ml INH R QID
Prednisone [Deltasone] 40 mg PO DAILY
Propranolol Extended Release [Inderal LA] 60 mg PO DAILY
omeprazole 40 mg PO DAILY
valsartan 320 mg PO DAILY
01/08/24 10:32
Troponin I Q3H
Comment: at admit & Q3H for 3 total including ED draws, obtain ECG with each level
01/08/24 18:00
Enoxaparin Sodium [Lovenox] 40 mg SC QPM
01/08/24 22:00
Trazodone [Desyrel] 100 mg PO HS
01/10/24 11:00
DC Protocol for Telemetry ONCE
Abnormal Lab Results
01/07/24
23:41
RBC 3.94 L 10^6/uL
(4.20-5.40)
Hgb 9.1 L g/dL
(12.0-16.0)
Hct 31.7 L %
(37.0-47.0)
MCV 80.5 L fL
(81.0-99.0)
MCH 23.1 L pg
(27.0-31.0)
MCHC 28.7 L g/dL
(33.0-37.0)
RDW 16.4 H %
(11.5-14.5)
Plt Count 93 L D 10^3/uL
(130-400)
MPV 10.6 H fL
(7.4-10.4)
Absolute Lymphs (auto) 0.3 L 10^3/uL
(1.2-3.4)
Neutrophils % 82.8 H %
(42.2-75.2)
Lymphocytes % 6.3 L %
(20.5-51.1)
Chloride 96 L mmol/L
(98-107)
Carbon Dioxide 34 H mmol/L
(22-30)
BUN 25 H mg/dl
(7-17)
Glucose 136 H mg/dl
(70-99)
Troponin I 0.047 H* ng/ml
01/07/24 23:41
01/07/24 23:41
Vital Signs
Initial and Last Documented VS:
Initial Vital Signs
Temp Pulse Resp BP Pulse Ox
99.6 F 136 21 163/107 96
01/07/24 23:36 01/07/24 23:36 01/07/24 23:36 01/07/24 23:36 01/07/24 23:36
Last Documented Vital Signs
Temp Pulse Resp BP Pulse Ox
99.6 F 112 12 155/80 96
01/07/24 23:36 01/08/24 04:15 01/08/24 04:15 01/08/24 04:00 01/08/24 04:15
MDM/Problems Addressed
MDM/Problems Addressed:
73-year-old female with history of COPD with recent placement on oxygen presenting to the emergency department for chest pain and shortness of breath. Vital signs on arrival significant for tachycardia.
On exam, patient is tachypneic, diminished air movement, diffuse expiratory wheezing. Suspected acute COPD exacerbation. EKG obtained on arrival, sinus tachycardia without obvious ischemia, however difficult to rotation secondary to rate. Will
plan for troponin. Patient received aspirin and a nitroglycerin and route. Patient has had increased oxygen requirements today, is usually on 2 to 3 L as needed, and arrives on 4 L. In the setting of hypoxia and tachycardia, PE is also
consideration. Will obtain CT chest imaging. Will also swab for COVID and flu. For therapeutics, will start on DuoNebs and steroids and reassess
00:20 -patient with troponin bump. Suspected ischemic demand. Will continue to closely monitor
01:50 -CT without PE. On reassessment, patient notes that her breathing is slightly better. Remains slightly tachypneic with diminished air movement. Also remains tachycardic. For this reason feel patient warrants admission for COPD exacerbation
and chest pain
*EKG
Interpreted by ED Provider?: Yes
EKG Intrepretation Date: 01/08/24
EKG Intrepretation Time: 00:20
Interpretation: abnormal
Comparison EKG: changes noted (01/02/24)
Heart Rate: 135
Rate: tachycardiac
Rhythm: sinus
[place]: normal axis
Interval: normal interval
QRS Pattern: left vent hypertrophy
Ischemia: no ischemia
*Critical Care Note
Total Time (30-74mins, 75-104mins- exclusive of procedures): Not Applicable
ED Attending Note
-
Portions of this chart may have been created with voice recognition software.� Occasional wrong word or��sound alike� substitutions may have occurred due to the inherent limitations of voice recognition software.
Discharge Plan
Departure
Patient Disposition: Admit
Date of Disposition: 01/08/24
Time of Disposition: 01:57
Presentation/result/management discussed w/ accepting MD/DO: Hospitalist
Patient with high blood pressure during this ER visit?: No
Condition: Fair
Discharge Problem:
COPD exacerbation, Tachycardia, Chest pain
Interventions
Interventions:
*Risk Screen - Suicide Last Done: 01/07/24 23:36
*General Assessment Last Done: 01/07/24 23:36
*Neglect/Abuse Screening Last Done: 01/07/24 23:36
*ED COVID-19 Vaccine History Last Done: 01/07/24 23:36
*Nursing Disposition Last Done: 01/08/24 04:28
ED- Cardiac Assessment Last Done: 01/07/24 23:48
[2024-01-08] MEDS: SOLU-MEDROL PF 125 MG IV (00:22)
[2024-01-08] MEDS: DUONEB 9 ML INH (00:22)
[2024-01-08 00:35] LABS: Anisocytosis 1+; Microcytosis 1+; Normal RBC Morphology No
[2024-01-08 00:36] LABS: Target Cells Occasional; Tear Drop Red Blood Cells Occasional
[2024-01-08 00:37] LABS: Hypochromasia 2+
[2024-01-08 00:38] LABS: Ovalocytes 2+
[2024-01-08 00:42] LABS: COVID-19 Antigen Negative (Negative)
[2024-01-08] MEDS: MORPHINE SULFATE 4 MG IV (01:41)
--- NOTE | 2024-01-08 02:22 | HPS.HSE ---
Family Physician
-
Family Physician: Fer Motta
Chief Complaint
-
Chest pain, shortness of breath
History of Present Illness
This is a 73-year-old female who has a past medical history of COPD recently placed on home O2 up to 3 L with activity, hypertension, hep C cirrhosis, history of alcohol use presenting to the emergency department with 1 day history of worsening
shortness of breath, dyspnea on exertion and chest pain.
Patient was hospitalized approximately 12 days ago with shortness of breath. She was found to have baseline hypoxia rather than exacerbation of COPD. She was placed on oxygen at that time with improvement in her symptoms and patient was discharged
on home O2. She has been using oxygen as prescribed. Patient states her symptoms never really improved. Today she has persistent shortness of breath. She reports that she could be laying down and then suddenly developed shortness of breath.
With any activity she is definitely short of breath. She reports chest tightness without any radiation. She denies any cough. She denies any lower extremity swelling. She denies fevers or chills. She has no known sick contacts. She denies any
nausea or vomiting. She is not diaphoretic. She was found by EMS to be tachycardic and complained of chest pain. She was given aspirin and nitroglycerin. She is still tachycardic with chest discomfort. She has been using her oxygen throughout
the day without any relief.
In the emergency department she was afebrile with a temp of 99.6, she was satting 96% on 4 L. Blood pressure was 180/97 and she was tachycardic to the 120s to 130s. ECG shows sinus tachycardia at 135, there was lateral ST depressions. Troponin
was 0.047. Her BNP was unchanged at 1500. Hemoglobin was 9.1 similar to prior. Chemistries were unremarkable and bicarb was 34. She had a CT PE which was negative for PE. No other acute infiltrates noted. COVID test was negative. Flu test was
negative.
Medical History
Past Medical History
Past Medical History: Reports COPD (Recently placed on home O2), GERD (Gastritis, peptic ulcer disease,), HTN, Hypercholesterolemia and Other (History of GI bleed, esophageal varices, chronic anemia, pancytopenia)
Additional Past Medical History:
Hep C cirrhosis
Past Surgical History: Reports Other
Social History
Tobacco: Former Smoker
Alcohol: Occasional
Drug: None
Personal: Single
Living: With Family
Employment: Not Employed
Family History
Family History: Not pertinent
Allergies / Home Medications
Allergies reflects when Allergies were last updated in [employer].
Home Medications with original date entered in [employer]
Allergy/Medication List:
Allergies
Allergy/AdvReac Type Severity Reaction Status Date / Time
No Known Allergies Allergy Verified 01/02/24 11:41
Home Medications
propranolol 60 mg capsule,24 hr,extended release 60 mg PO DAILY Blood Pressure 01/30/18
omeprazole 40 mg capsule,delayed release 40 mg PO DAILY Gastrointestinal Issue 01/22/23
albuterol sulfate 90 mcg/actuation aerosol inhaler 1 puff inhalation R Q4HPRN PRN sob/wheezing 12/12/23
budesonide 0.5 mg/2 mL suspension for nebulization 0.5 mg inhalation R BID Lung/Breathing Issues 12/12/23
trazodone 100 mg tablet 100 mg PO HS Mental Health/Anxiety 12/12/23
umeclidinium 62.5 mcg-vilanterol 25 mcg/actuation powdr for inhalation (Anoro Ellipta) 1 inh inhalation R DAILY Lung/Breathing Issues 12/12/23
prednisone 10 mg tablet 10 mg PO DIRECTED #30 tabs 12/30/23
simethicone 80 mg chewable tablet 80 mg PO TIDPRN PRN gas/bloating 90 days #90 tabs 12/30/23
valsartan 320 mg tablet 320 mg PO DAILY Blood pressure #90 tabs 12/30/23
Review of Systems
-
History Source: Patient
Constitutional: Reports No Symptoms
EENT: Reports No Symptoms
Respiratory: Reports Trouble Breathing
Cardiac: Reports Chest Pain
Abdomen/GI: Reports No Symptoms
: Reports No Symptoms
Musculoskeletal: Reports No Symptoms
Skin: Reports No Symptoms
Neurological: Reports No Symptoms
Endocrine: Reports No Symptoms
Hematologic/Lymphatic: Reports No Symptoms
Psych: Reports No Symptoms
Physical Exam
Vital Signs
Vital Signs
Temp Pulse Resp BP Pulse Ox
99.6 F 121 19 183/97 96
01/07/24 23:36 01/08/24 01:45 01/08/24 01:45 01/08/24 00:00 01/08/24 01:45
Physical Exam
General: Respiratory Distress and Cachectic
HEENT: NormoCephalic, Anicteric, Atraumatic and PERRLA
Respiratory: Clear and Decreased Breath Sounds
Cardiac: S1/S2, Regular Rhythm and Tachycardia
Breast: Deferred by me
GI: Soft, Non Tender and Normal Bowel Sounds
Rectal: Deferred by Provider
Genito-urinary: Clear Urine
Musculoskeletal: No Clubbing, No Cyanosis and No Edema
Skin: Warm
Neuro: AO x 3
Hematologic/Lymphatic: No Lymphadenopathy
Psych: Calm
Laboratory Results
-
01/07/24 23:41
01/07/24 23:41
Laboratory Results
Total Bilirubin 1.0 mg/dl (0.2-1.3) 01/07/24 23:41
AST 32 U/L (14-36) 01/07/24 23:41
ALT 25 U/L (0-35) 01/07/24 23:41
Alkaline Phosphatase 68 U/L (38-126) 01/07/24 23:41
Troponin I 0.047 ng/ml H* 01/07/24 23:41
Data Reviewed
-
CT Scan: Report Reviewed by me
Medical Tests (Nuc Med, Echo, EKG etc): Image Personally Visualized and interpreted
Lab Data: Labs Reviewed by me
Old Records: Reviewed
Impression/Plan
-
IMPRESSION:
73 y.o female with multiple commorbiditis presenting with chest pain, tachcyardia and shortness of breath. Negative w/u in ED except for a trop of 0.047.
PLAN:
1. SOB - Patient is persistently SOB. Has severe COPD/empyema and possibly cor-pulmonale/pulmonary hypertension. Less likely shunting. No infiltrates, pulmonary edema or effusion. negative viral panel. No PE.
- admit to telemetry
- continue supportive oxygen to keep sat > 90%
- continue home inhaled steroids
- continue duonebs q6 and prn
- prednisone 40 daily for now
- check vbg
- check echocardiogram
- consider pulmonary consultation
2. CP - More like chest tightness. Trop 0.0447, possibly demand ischemia. No CP currently. ECG is tachycardia with some non-specific lateral ST changes.
- telemetry
- trend troponin
- aspirin given
- echo
- cardiology consult
3. Tachycardia - h/o varices and GI bleed. Hypertensive here. Mild dehydration. Hemoglobin stable to improved from prior. Possibly rebound from non-compliance with b-blocakde
- iv fluids
- guaiac stools
- pain control
- continue propranolol
4. HTN -
- continue valsartan
- continue propranolol
- consider nifedipine
DVT PPX - lovenox sq
Code status - full code
[2024-01-08] MEDS: NSS 500 IV (05:08)
[2024-01-08 05:59] LABS: Venous Blood Gas B.E. 8.3 mmol/L (-4 to +4); Venous Blood Gas O2 Sat % 98.2 %; Venous Blood Gas pCO2 62 mmHg (35-48); Venous Blood Gas pH 7.36 (7.32-7.43); Venous Blood Gas pO2 80 mmHg (30-50)
[2024-01-08 06:02] LABS: Venous Blood Gas O2 Therapy 32%
[2024-01-08] MEDS: INDERAL LA 60 MG PO (06:10)
--- NOTE | 2024-01-08 06:13 | PTCARENOTE ---
Patients blood pressure 176/98 and HR 111-125. Messaged [employer]. Inderal LA 60 mg given 2 hours early.
[2024-01-08 06:20] LABS: Hematocrit 27.1 % (37.0-47.0); Hemoglobin 7.8 g/dL (12.0-16.0); Mean Corp Hgb Conc. 28.8 g/dL (33.0-37.0); Mean Corpuscular Hgb 22.9 pg (27.0-31.0); Mean Corpuscular Volume 79.5 fL (81.0-99.0); Mean Platelet Volume 9.9 fL (7.4-10.4); Platelet Count 69 10^3/uL (130-400); Red Blood Cell Count 3.41 10^6/uL (4.20-5.40); Red Cell Dist. Width 16.3 % (11.5-14.5); White Blood Cell Count 3.8 10^3/uL (4.8-10.8)
[2024-01-08 06:43] LABS: Blood Urea Nitrogen 22 mg/dl (7-17); Calcium 8.4 mg/dl (8.4-10.2); Carbon Dioxide 34 mmol/L (22-30); Chloride 98 mmol/L (98-107); Estimated Creatinine Clearance 38 ml/min; Glucose 163 mg/dl (70-99); HDL Cholesterol 72 mg/dl; LDL Cholesterol, Calculated 80 mg/dl; Potassium 3.9 mmol/L (3.5-5.1); Sodium 140 mmol/L (135-145); Total Cholesterol 166 mg/dl (50-199); Triglyceride 71 mg/dl (10-149); Very Low Density Lipoprotein 14 mg/dl (0-30); eGFR > 60.00
[2024-01-08] MEDS: PULMICORT 0.5 MG INH ×2 (07:32→18:04)
[2024-01-08] MEDS: DUONEB 3 ML INH ×5 (07:33→19:49)
--- NOTE | 2024-01-08 08:30 | PTCARENOTE ---
BP this AM is 170/97, resting comfortably in bed, pt in no apparent distress. RN made aware.
[2024-01-08] MEDS: PROTONIX 40 MG PO (09:01)
[2024-01-08] MEDS: DIOVAN 320 MG PO (09:01)
[2024-01-08] MEDS: DELTASONE 40 MG PO (09:01)
--- NOTE | 2024-01-08 09:13 | CON.CAR ---
Addendum entered and electronically signed by Kieran Lockett MD 01/08/24 21:39:
Already on high dose Valsartan
Addendum entered and electronically signed by Kieran Lockett MD 01/08/24 10:03:
Patient on propranolol, will discontinue, start diltiazem ER 240 mg daily
Original Note:
Consultation
Consultation Request
Date/Time Consultation Requested: 01/08/2024 but at 2:30 AM
Date/Time Consultation Performed: 01/08/2024 at 9:30 AM
Requesting Provider: Dr Mckenzie
Performing Provider: Kieran Lockett MD
Reason for Consultation: Dyspnea with a proBNP of 1500
Medical History
-
Chief Complaint: Shortness of breath
History of Present Illness:
73-year-old woman with hep C, cirrhosis, and COPD hospitalized 2 weeks ago with exacerbation of COPD. She remains short of breath after discharge and reported PND/orthopnea. She had dyspnea with minimal exertion, called EMS and had chest
discomfort. This was her first episode of chest discomfort ever, with tachycardia, described as a pressure, tightness across her precordium. She also has atypical left axillary discomfort. She is frustrated that she is not feeling better. Temp
was 99.6, blood pressure 180/97 with heart rate 120s-130s with detectable troponin of 0.047. Hemoglobin 9.1. CT scan negative for pulmonary embolus. COVID and flu negative.
Past Medical History
Past Medical History: COPD (Now on home O2), GERD, Hypercholesterolemia and Other (Cirrhosis related to hep C, pancytopenia, esophageal varices, history of GI bleeding, chronic anemia)
Past Surgical History: Other (Noncontributory)
Social History
Tobacco: Former Smoker (Quit 4 years ago)
Alcohol: Former (Was heavy in past)
Drug: None
Personal:
Living: With Family (Lives with son)
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
Family History
Family History: Reviewed & Not Pertinent
Allergies / Home Medications
Allergy/AdvReac Type Severity Reaction Status Date / Time
No Known Allergies Allergy Verified 01/02/24 11:41
�Medication �Instructions �Recorded �Confirmed �Type
propranolol 60 mg capsule,24 60 mg PO DAILY Blood Pressure 01/30/18 01/08/24 History
hr,extended release
omeprazole 40 mg capsule,delayed 40 mg PO DAILY Gastrointestinal 01/22/23 01/08/24 History
release Issue
albuterol sulfate 90 mcg/actuation 1 puff inhalation R Q4HPRN PRN 12/12/23 01/08/24 History
aerosol inhaler sob/wheezing
budesonide 0.5 mg/2 mL suspension 0.5 mg inhalation R BID 12/12/23 01/08/24 History
for nebulization Lung/Breathing Issues
trazodone 100 mg tablet 100 mg PO HS Mental Health/Anxiety 12/12/23 01/08/24 History
umeclidinium 62.5 mcg-vilanterol 1 inh inhalation R DAILY 12/12/23 01/08/24 History
25 mcg/actuation powdr for Lung/Breathing Issues
inhalation (Anoro Ellipta)
prednisone 10 mg tablet 10 mg PO DIRECTED #30 tabs 12/30/23 01/08/24 Rx
simethicone 80 mg chewable tablet 80 mg PO TIDPRN PRN gas/bloating 12/30/23 01/08/24 Rx
90 days #90 tabs
valsartan 320 mg tablet 320 mg PO DAILY Blood pressure #90 12/30/23 Rx
tabs
Review of Systems
-
All other systems: Negative unless noted
Physical Exam
Vital Signs
Temp Pulse Resp BP Pulse Ox
36.7 C 82 16 170/97 97
01/08/24 07:24 01/08/24 09:01 01/08/24 07:38 01/08/24 09:01 01/08/24 07:38
Lab Results
01/08/24 05:39
01/08/24 05:38
Troponin I 0.040 ng/ml H* 01/08/24 05:38
Zth-G-Ihosgotvush Pept 1510 pg/ml 01/07/24 23:41
Physical Exam
General: Other (Frail, cachectic, no acute distress)
HEENT: Other (Temporal wasting)
Respiratory: Wheezes (Faint, diminished breath sounds)
Cardiac: Murmur (Systolic murmur at apex, loud carotid bruit on left, soft murmur at base)
GI: Soft
Musculoskeletal: No Clubbing, No Cyanosis and No Edema
Skin: Warm
Neuro: AO x 3
Psych: Calm
Impression / Plan
-
Impression:
Dyspnea
Exacerbation of COPD
Detectable troponin, 0.047, proBNP 1500
Hep C with cirrhosis and varices, history of GI bleed, poor candidate for colonoscopy, EGD
Pancytopenia
History of alcohol abuse
Hypertension
Depression
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
Echocardiogram December 2023: Normal LV size and function, EF 60-65%, normal RV, MAC, trace MR, aortic sclerosis, mild LVH
Plan:
She presents with dyspnea that I suspect is mostly related to COPD.
Doubt that she has overt HFpEF at this time. Will not give IV Lasix at present. No evidence of volume overload on exam. For hypertension, we could consider hydrochlorothiazide.
I do not think that she has ACS and that her detectable troponin is a nonischemic myocardial injury possibly related to hypoxemia, etc.
She has a murmur that is out of proportion to findings on echo. Will do follow-up echo study looking for LVOT gradients. By EKG she has marked LVH, out of proportion to what was seen on echo.
We can consider an ischemic evaluation but given her comorbidities, chronic thrombocytopenia, etc. would be best to avoid an invasive strategy. She would probably not tolerate DAPT. With current platelet count, in the absence of further issues I
would not start aspirin.
She is hypertensive, which could be contributing to chest discomfort. Will add low-dose valsartan.. Based upon follow-up echo study might consider diltiazem in the event that her ventricle is hyperdynamic as I suspect. Not a candidate for
beta-radha
Data Reviewed
-
EKG: Tracing Personally Visualized and interpreted (Sinus tachycardia, biatrial enlargement, LVH with ST segment depression inferolaterally, T wave inversions less apparent today's tracing)
Radiology: Image Personally Visualized and interpreted
CT Scan: Image Personally Visualized and interpreted
Medical Tests (Nuc Med, Echo etc): Report Reviewed by me
Labs: Labs Reviewed by me (Hemoglobin 7.8, MCV 79.5, platelets are 69, white count is 3.8, VBG 7.36, pCO2 62, pO2 80, bicarb 35,BUN and creatinine are 22 and 0.9, troponin is 0.040, proBNP is 1510, had been 2490) and Discussed with Family
--- NOTE | 2024-01-08 09:16 | W.PN.UPDATE ---
Update Note
Progress Note Update
Patient seen and examined after postmidnight admission. Currently denies chest pain. Reports shortness of breath is improved significantly. Vital signs stable. No acute distress, awake and alert, regular rate and rhythm, normal S1-S2. Clear to
auscultation bilaterally. Positive bowel sounds, soft, nontender, nondistended. Continue plan as outlined in the H&P done earlier today. Cardiology and pulmonary to see.
[2024-01-08] MEDS: MYLICON 80 MG PO ×2 (09:22→21:40)
[2024-01-08 09:28] LABS: Troponin I 0.036 ng/ml
--- NOTE | 2024-01-08 10:20 | CON.PUL ---
Consultation
Consultation Request
Date/Time Consultation Requested: 01/08/24
Date/Time Consultation Performed: 01/08/24
Performing Provider: Nathalie
Reason for Consultation: AECOPD
Medical History
-
History of Present Illness:
Patient is a 73-year-old female with previous history of severe COPD on home oxygen, hep C cirrhosis, former smoker presenting to ER with acute on chronic worsening shortness of breath, chest pain. She was hospitalized for similar symptoms
recently and discharged on 12/30/2023. She feels better when she is in the hospital and feels worse when she is at home. She is not sure what she has done differently to exacerbate her symptoms. She is short of breath with very little activity.
In the ER, chest x-ray was unremarkable. She did have small increase in her troponin. CT PE demonstrating negative study for pulmonary embolism.
Past Medical History
Past Medical History: Other (see list below)
Social History
Tobacco: Former Smoker
Alcohol: None
Drug: None
Family History
Family History: Reviewed & Not Pertinent
Allergies / Home Medications
Allergies
Allergy/AdvReac Type Severity Reaction Status Date / Time
No Known Allergies Allergy Verified 01/02/24 11:41
Home Medications
�Medication �Instructions �Recorded �Confirmed �Last Taken �Type
propranolol 60 mg capsule,24 60 mg PO DAILY Blood Pressure 01/30/18 01/08/24 01/06/24 History
hr,extended release
omeprazole 40 mg capsule,delayed 40 mg PO DAILY Gastrointestinal 01/22/23 01/08/24 01/06/24 History
release Issue
albuterol sulfate 90 mcg/actuation 1 puff inhalation R Q4HPRN PRN 12/12/23 01/08/24 Unknown History
aerosol inhaler sob/wheezing
budesonide 0.5 mg/2 mL suspension 0.5 mg inhalation R BID 12/12/23 01/08/24 12/26/23 History
for nebulization Lung/Breathing Issues
trazodone 100 mg tablet 100 mg PO HS Mental Health/Anxiety 12/12/23 01/08/24 01/06/24 History
umeclidinium 62.5 mcg-vilanterol 1 inh inhalation R DAILY 12/12/23 01/08/24 12/26/23 History
25 mcg/actuation powdr for Lung/Breathing Issues
inhalation (Anoro Ellipta)
prednisone 10 mg tablet 10 mg PO DIRECTED #30 tabs 12/30/23 01/08/24 01/06/24 Rx
simethicone 80 mg chewable tablet 80 mg PO TIDPRN PRN gas/bloating 12/30/23 01/08/24 Unknown Rx
90 days #90 tabs
valsartan 320 mg tablet 320 mg PO DAILY Blood pressure #90 12/30/23 Unknown Rx
tabs
Review of Systems
-
History Source: Patient
All other systems: Negative unless noted
Vitals / Labs / Diagnostic Testing
Vital Signs
Temp Pulse Resp BP Pulse Ox
98.1 F 82 16 170/97 97
01/08/24 07:24 01/08/24 09:01 01/08/24 07:38 01/08/24 09:01 01/08/24 08:00
Lab Data
01/08/24 05:39
01/08/24 05:38
Microbiology
01/08/24 00:20 Nasal Swab Influenza Types A & B (RUY) - Final
Negative for Influenza A & B, NAAT
Negative results must be combined with clinical observations
and patient history.
Nucleic Acid Amplification test (NAAT)performed on the
[employer] platform.
Diagnostic Testing:
Physical Exam
-
HEENT: Normocephalic, Anicteric and Moist Mucous Membranes
Cardiovascular: S1/S2 and Regular Rhythm
Respiratory: Clear (decreased air movement) and Non-Labored Respirations
GI: Soft, Non Distended and Non Tender
Neurology: Awake, Alert, Oriented and No Motor Deficits
Skin: Warm, Dry and Good Color
General: Comfortable and Other (NAD, thin appearing)
Assessment
-
Patient is a 73-year-old female with previous history of severe COPD on home oxygen, hep C cirrhosis, former smoker presenting to ER with acute on chronic worsening shortness of breath, chest pain. She was hospitalized for similar symptoms
recently and discharged on 12/30/2023. She feels better when she is in the hospital and feels worse when she is at home. She is not sure what she has done differently to exacerbate her symptoms. She is short of breath with very little activity.
In the ER, chest x-ray was unremarkable. She did have small increase in her troponin. CT PE demonstrating negative study for pulmonary embolism. We are consulted for eval.
AECOPD, recurrent/frequent
Acute on chronic SOB
Pancytopenia
Chronic hypercarbic respiratory failure VBG 7.
Hyperglycemia
Elevated troponins
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
Chronic obstructive pulmonary disease--severe
Follows with Dr Alonzo; PFT 05/06/23: FEV1 of 0.83 L, DLCO of 13%; 07/17/18- FEV1 0.65L 31%
Moderate/severe apical predominant centrilobular emphysema, severe diffusion impairment
Liver cirrhosis/Hepatitis C
Chronic alcohol use
Thrombocytopenia
Pulmonary nodule on CT.
Hypertension, poorly controlled
Plan
Chronic use of 3L NC, she is currently on 4L
Prior history of lung disease is noted including severe COPD/emphysema
She has had frequent admissions for COPD, requiring prednisone
We discussed end stage COPD and its natural course
Can trial a longer prednisone course vs indefinite daily use
CXR/CT obtained indicating no acute findings
Can repeat imaging PRN
Trop noted, cards eval obtained
Prior ECHO results are reviewed indicating normal function, normal PA pressures
Further w/u as indicated per team
Smoking history noted
Liver disease and hep C
New ascites noted on imaging
Consider GI consult for worsneing liver disease/stigmata
Can arrange diagnostic para if this relieves her dyspnea
Will need outpatient pulmonary evaluation in our office for PFTs and 6MWT
Reviewed with patient
Overall prognosis poor in patient with end stage lung disease and cirrhotic liver disease
Consideration for GOC discussions
She remains full code
We will follow
Diagnostic Data
Chest X-Ray:
PET scan-05/26/23 revealed a 1.5 cm sub-solid nodule in the anterior right lower lobe with mild metabolic activity without increased FDG accumulation on delayed imaging. SUV values 3.3/3.3. Low grade neoplasm is not entirely excluded. Fused image
607, page 47 of 84. No mediastinal adenopathy or hilar adenopathy. Slightly increased splenomegaly [address] Scan: CHEST 01/08/24- No acute disease of the chest. No evidence of pulmonary embolus. Findings suggesting cirrhosis. Stable. Moderate upper abdominal ascites. New. Probable splenomegaly. Stable. Stable right lower lobe pulmonary nodule. See
prior PET/CT report
Echo: 12/15/23- Normal LV size and systolic function. LVEF 60-65%. No regional wall motion abnormalities. Normal RV size and function. No significant valvular disease. Normal estimated PASP. Compared to prior echocardiogram in 2017, there is no
significant change.
PFT's: 05/06/23: FEV1 of 0.83 L, DLCO of 13%
07/17/18- FEV1 0.65L 31%, FVC 1.57L 59%, ratio 41
Reports and relevant images were personally reviewed.
Total time spent on this consultation __75__ minutes which includes review of history, physical exam, medications, laboratory data, personal review of imaging, extensive review of outpatient records, discussion with care team and respiratory therapy.
[2024-01-08 11:07] LABS: Glycohemoglobin (HgbA1c) 5.1 % (4.0-5.6)
[2024-01-08] MEDS: CARDIZEM CD 240 MG PO (12:07)
[2024-01-08 12:23] LABS: Troponin I 0.028 ng/ml
[2024-01-08] MEDS: NEURONTIN 100 MG PO (17:10)
--- NOTE | 2024-01-08 18:11 | RESPNOTE ---
patient walked to bathroom on RA, on return to bed SpO2 81%. 3L re-applied and neb tx administered with additional 6L O2. patient SpO2 returned to 95% within 1 minute, less labored. patient also states 'this was happening at home' referring to SOB
and low sat.
[2024-01-08] MEDS: DESYREL 100 MG PO (21:40)
[2024-01-09 03:27] VITALS: BP 134/62
[2024-01-09 05:30] VITALS: BMI 17.9
[2024-01-09] MEDS: DUONEB 3 ML INH ×5 (07:01→22:14)
[2024-01-09] MEDS: PULMICORT 0.5 MG INH ×2 (07:01→18:29)
[2024-01-09 07:15] VITALS: BP 120/57
[2024-01-09] MEDS: CARDIZEM CD 240 MG PO (08:12)
[2024-01-09] MEDS: DIOVAN 320 MG PO (08:12)
[2024-01-09] MEDS: PROTONIX 40 MG PO (08:12)
[2024-01-09] MEDS: DELTASONE 40 MG PO (08:12)
--- NOTE | 2024-01-09 08:21 | VNURNOTE ---
Chart reviewed. 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 Will continue to follow hospital course and DC plans.
[2024-01-09 11:05] VITALS: BP 131/63
--- NOTE | 2024-01-09 11:22 | W.PN.HOSP.TC ---
Today's Communication/Plan
-
see bold
Assessment / Plan
Assessment / Plan
Gen: NAD, AAOx3.
Eyes: EOMI, PERRLA, no scleral icterus.
Neck: supple.
CV: RRR, +S1/S2, no m/r/g.
Resp: Distant breath sounds, CTAB, no rales, wheezes, or rhonchi.
Abd: +BS, soft, mild distention consistent with ascites, ND
Skin: No rashes.
Neuro: CN 2-12 intact, non-focal.
Psych: Normal mood and affect.
CTA chest: No acute disease of the chest. No evidence of pulmonary embolus. Findings suggesting cirrhosis. Stable. Moderate upper abdominal ascites. New. Probable splenomegaly. Stable. Stable right lower lobe pulmonary nodule.
Acute exacerbation of end-stage COPD:
-pulm following
-reasonable to c/s palliative care based on documentation by pulmonary
-Patient with chronic hypoxemic respiratory failure, on 3L NC O2 at home
-cont prednisone, may need lifelong
Other problems:
Acute nonischemic myocardial injury due to acute exacerbation of chronic, end-stage COPD: Cardiology saw in consultation. Check echo.
Cirrhosis with portal hypertension, splenomegaly, portosystemic vascular collaterals with history of esophageal varices and GI bleed: check abd U/S to assess degree of ascites. If there is enough fluid to tap will order therapeutic/diagnostic
paracentesis.
Essential hypertension: cont Cardizem CD/Diovan
FULL/lovenox
Anticipated Discharge: 24 - 48 hours
Subjective/Interval History
-
Date of Service: January 09, 2024
Shortness of breath unchanged from yesterday.
Objective Data
-
Vital Signs:
Vital Signs
Temp Pulse Resp BP Pulse Ox
98.3 F 78 16 120/57 93
01/09/24 07:15 01/09/24 11:21 01/09/24 11:21 01/09/24 08:12 01/09/24 10:24
I&O
01/08/24 01/09/24 01/10/24
06:59 06:59 06:59
Intake Total 600 / 600
Balance 600 / 600
--- NOTE | 2024-01-09 12:49 | W.CON.PAL ---
Consultation
-
Date/Time Consultation Requested: 01/08
Date/Time Consultation Performed: 01/08
Requesting Provider: Diego
Performing Provider: Kecia Lane
Reason for Consult: Goals of Care Discussion
Primary Diagnosis: end stage COPD
Consult Requested By: Patient's Physician
Reason for Admission
Illness Course/HPI
73 year old F with PMH of end stage COPD on home O2 , hypertension, hep C cirrhosis, hx alcohol use admitted with worsening shortness of breath, dyspnea on exertion and chest pain.
Of note, patient was hospitalized approximately 2 weeks ago with shortness of breath. She was placed on oxygen at that time with improvement in her symptoms and patient was discharged on home O2. She was found by EMS to be tachycardic and
complained of chest pain. She was given aspirin and nitroglycerin.
Upon admission was afebrile with a temp of 99.6, she was satting 96% on 4 L. BP 180/97 tacy to 130s. Troponin was 0.047. CT PE negative for PE. No other acute infiltrates noted. COVID test was negative. Flu test was negative. CT with ascites.
Seen by pulm - discussed with her her end stage COPD and expected natural course. Patient has frequent admissions for COPD per notes. Full code.
Consult for GOC.
Seen at bedside this PM with no family present. States her lungs have gotten progressively worse and now cant even adjust herself in bed without getting short of breath. States she was told today her lungs are just 'existing' and not really working
anymore. She admits she was not following with pulm like she should be. Plans to do so moving forward and hopes this will make a difference in her symptoms and admissions. We discussed code status and she wishes to remain a full code. She is open to
palliative correction visits on discharge.
Goals of Care Discussion
-
Individuals Present for Discussion & Relationship to Patient:
full code
open to following outpatient palliative care
Pain & Symptom Assessment
[place] Symptom Scale 0=none, 10=worst
Pain: 0
Shortness of Breath: 4
Objective Data
-
Objective Data:
Vital Signs
Temp Pulse Resp BP Pulse Ox
98.2 F 78 16 131/63 93
01/09/24 11:05 01/09/24 11:21 01/09/24 11:21 01/09/24 11:05 01/09/24 11:05
Laboratory Results
01/08/24 05:39
01/08/24 05:38
Hemoglobin A1c 5.1 % (4.0-5.6) 01/08/24 05:39
Total Protein 6.4 g/dl (6.3-8.2) 01/07/24 23:41
Albumin 3.6 g/dl (3.5-5.0) 01/07/24 23:41
Palliative Performance Scale
Palliative Performance Scale:
PPS Level Ambulation Activity & Evidence of Disease Self Care Intake Conscious Level
100% Full Normal Activity & Work; Full Intake Full
No Evidence of Disease
90% Full Normal Activity & Work; Full Normal Full
Some Evidence of Disease
80% Full Normal Activity with Effort Full Normal or Full
Some Evidence of Disease Reduced
70% Reduced Unable Normal Job/Work Full Normal or Full
Significant Disease Reduced
60% Reduced Unable Hobby/Housework Occasional Normal or Full or Confusion
Significant Disease Assistance Reduced
50% Mainly Sit/Lie Unable to do Any Work Considerable Normal or Full or Confusion
Extensive Disease Assistance Req'd Reduced
40% Mainly in Bed Unable to do Most Activity Mainly Assistance Normal or Full or Drowsy;
Extensive Disease Reduced +/- Confusion
30% Totally Bed Unable to do Any Activity Total Care Normal or Full or Drowsy;
Bound Extensive Disease Reduced +/- Confusion
20% Totally Bed Bound Unable to do Any Activity Total Care Minimal to Full or Drowsy;
Extensive Disease Sips +/- Confusion
10% Totally Bed Bound Unable to do Any Activity Total Care Mouth Care Drowsy or Coma;
Extensive Disease Only +/- Confusion
0%
PPS Score Level:
Palliative Performance Score Response
Palliative Performance Score Response: 50%
Physical Exam
-
General: Conversant, Appears Chronically Ill and Cachectic
HEENT: Normocephalic
Respiratory: Decreased Breath Sounds
Cardiac: Regular Rhythm
Peripheral Vascular: No Edema
GI: Soft and Normal Bowel Sounds
Skin: Warm
Neuro: AO x 3
Psych: Calm
Assessment / Plan
-
Assessment/Plan:
73 year old F with end stage COPD, multiple admissions
- goals are restorative, wants to come back to the hospital if she gets sick again. We did discuss hospice candidacy, not interested at this time. Wants to stick around for her children
- currently living with her son in [place] - is open to palliative home visits on discharge. Will call to coordinate after discharge
- wishes to remain a full code
Care Reviewed
Data Reviewed
Radiology procedure: Image Reviewed
Medical Tests: I reviewed
Reviewed with: Patient and Physician
--- NOTE | 2024-01-09 13:29 | W.PN.CARDCBS ---
Addendum entered and electronically signed by Kieran Lockett MD 01/09/24 15:48:
73-year-old woman with cirrhosis related to hep C and alcohol, end-stage COPD, history of GI bleeding and varices. Admitted with chest pain, hypertension, tachycardia and troponin 0.047 with proBNP of 1500.
She is more short of breath today. No chest pain. Blood pressure better controlled.
PMH: In addition to above, GERD, hypercholesterolemia, pancytopenia,
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
Current meds: Pulmicort, pantoprazole, trazodone 100 mg a day, valsartan 320 mg a day, enoxaparin, prednisone 40 mg a day, diltiazem ER 240 mg daily
131/63, pulse 78 afebrile, sats 93%, weight is 44.3 kg, up 1.3 kg, intake and output incomplete, tachypneic but not in acute distress, head neck exam unremarkable, lungs are diminished with some dry crackles, neck veins are up, very soft systolic
murmur at apex, was louder yesterday, abdomen benign not much edema
No labs today
Abdominal ultrasound: Minimal ascites
Impression: See below: exacerbation of severe end-stage COPD, hepatitis C with cirrhosis, history of alcohol use, varices, GI bleeding, chest pain, possible mild HFpEF, abnormal EKG with detectable troponin
Plan:
She reports she is more dyspneic today, and neck veins are up.
Will give furosemide 20 mg IV x 1.
Based on ultrasound of abdomen, no role for paracentesis.
Await follow-up EKG and echo.
EKG is significantly abnormal and troponin was detectable, but given cirrhosis, pancytopenia and end-stage COPD our strategy should remain conservative. Doubt she is suffering from ACS. LDL is 80, utility of statin therapy likely very limited in
this situation.
Blood pressure is better off propranolol and valsartan 320 mg daily with diltiazem ER 240 mg daily.
Last hemoglobin was 7.8, will repeat in a.m. Check BMP. Not on aspirin related to thrombocytopenia.
Prognosis limited in light of COPD, cirrhosis, pancytopenia
Original Note:
Today's Communication / Plan
-
continue treatment of COPD
abd US to eval for ascites/paracentesis
follow up echo study
repeat EKG
med mgmt of elevated troponin
Impression / Plan
-
Impression:
Dyspnea
Exacerbation of COPD
Elevated troponin, suspected nonischemic myocardial injury
Hep C with cirrhosis and varices, history of GI bleed, poor candidate for colonoscopy, EGD
Pancytopenia
History of alcohol abuse
Hypertension
Depression
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
Echocardiogram 12/15/2023: Normal LV size and function, EF 60-65%, normal RV, MAC, trace MR, aortic sclerosis, mild LVH
Plan:
-She presented with dyspnea and is being treated for exacerbation of end-stage COPD. She is currently on 3 L nasal cannula. Patient tells me at this point they think she will be on chronic steroids moving forward
-She does not appear to be overtly volume overloaded. proBNP was 1500. Holding on diuresis at this time
-She does report some chest discomfort, which she describes as sharp and randomly occurring. She reports improvement today associated with improvement in her breathing. Also reports abdominal bloating which could be contributing. She was noted to
have moderate ascites on CTAP earlier this month. She is for abdominal ultrasound today to assess need for paracentesis
-Troponin peaked at 0.047 and trending down, suspected nonischemic myocardial injury. Recent echo earlier this month was with preserved EF. For follow-up study today to look for LVOT gradients given murmur on exam. Noted to have LVH on EKG and
lateral T wave inversions. repeat EKG today
-Difficult situation as she may have underlying CAD, however she is not an ideal candidate for ischemic evaluation/procedures given her comorbidities including end-stage COPD and chronic thrombocytopenia, so will attempt to manage medically as able.
She is felt to be unlikely to be able to tolerate DAPT or even aspirin alone. hgb 7.8 and plts 69K.
-she is not a candidate for BB given significant lung disease. continue diovan and cardizem at present. BP trends appear improved today
-palliative care appears reasonable. she remains full code at present
Progress Note - Ice Maker
Subjective
Date of Service: January 09, 2024
reported some chest discomfort yesterday, better today. breathing better today
Objective
Labs:
01/08/24 05:39
01/08/24 05:38
Labs
Hgb 7.8 g/dL (12.0-16.0) L 01/08/24 05:39
Hct 27.1 % (37.0-47.0) L 01/08/24 05:39
Plt Count 69 10^3/uL (130-400) L D 01/08/24 05:39
Sodium 140 mmol/L (135-145) 01/08/24 05:38
Potassium 3.9 mmol/L (3.5-5.1) 01/08/24 05:38
BUN 22 mg/dl (7-17) H 01/08/24 05:38
Creatinine 0.9 mg/dL (0.6-1.0) 01/08/24 05:38
Glucose 163 mg/dl (70-99) H 01/08/24 05:38
Troponins
01/07/24 01/08/24 01/08/24
23:41 05:38 08:47
Troponin I 0.047 H* 0.040 H* 0.036 H*
01/08/24
11:35
Troponin I 0.028
Vital Signs and I&O:
Vital Signs
Temp Pulse Resp BP Pulse Ox
98.2 F 78 16 131/63 93
01/09/24 11:05 01/09/24 11:21 01/09/24 11:21 01/09/24 11:05 01/09/24 11:05
Vital Signs
Temp Pulse Resp BP Pulse Ox
98.2 F 78 16 131/63 93
01/09/24 11:05 01/09/24 11:21 01/09/24 11:21 01/09/24 11:05 01/09/24 11:05
Intake & Output
01/07/24 01/08/24 01/09/24 01/10/24
07:59 07:59 07:59 07:59
Intake Total 600 / 600
Balance 600 / 600
Physical Exam
Physical Exam
GEN: No distress, awake, alert, oriented x3. frail. on supp O2
HEENT: supple, anicteric, mmm, eomi
LUNGS: Scattered rhonchi, no wheezes
CV: Reg, S1/S2, 1/6 murmur
ABD: soft, BS+, NT/ND
EXT: No cyanosis, clubbing, edema
NEURO: Gross non-focal
SKIN: Warm, pink, dry. No rash
[2024-01-09] MEDS: MYLICON 80 MG PO (14:52)
[2024-01-09 15:05] VITALS: BP 138/70
--- NOTE | 2024-01-09 15:17 | W.PN.PUL3 ---
Today's Communication / Plan
-
Continue nebulizer therapy-will continue upon discharge
Hold inhalers
Prednisone taper decrease by 72 hours x 10 mg, down to 10 mg until seen in our office.
May consider low-dose macrolide therapy in the outpatient setting.
Continue oxygen therapy
Follow hemoglobin
Physical therapy consultation
Assessment
-
Patient is a 73-year-old female with previous history of severe COPD on home oxygen, hep C cirrhosis, former smoker presenting to ER with acute on chronic worsening shortness of breath, chest pain. She was hospitalized for similar symptoms
recently and discharged on 12/30/2023. She feels better when she is in the hospital and feels worse when she is at home. She is not sure what she has done differently to exacerbate her symptoms. She is short of breath with very little activity.
In the ER, chest x-ray was unremarkable. She did have small increase in her troponin. CT PE demonstrating negative study for pulmonary embolism. We are consulted for eval.
AECOPD, recurrent/frequent
Acute on chronic SOB
Pancytopenia
Chronic hypercarbic respiratory failure VBG 7.36/
Hyperglycemia
Elevated troponins
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
Chronic obstructive pulmonary disease--severe
Follows with Dr Alozno; PFT 05/06/23: FEV1 of 0.83 L, DLCO of 13%; 07/17/18- FEV1 0.65L 31%
Moderate/severe apical predominant centrilobular emphysema, severe diffusion impairment
Liver cirrhosis/Hepatitis C
Chronic alcohol use
Thrombocytopenia
Pulmonary nodule on CT.
Hypertension, poorly controlled
Plan:
Chronic use of 3L NC, she is currently on 4L
Prior history of lung disease is noted including severe COPD/emphysema
She has had frequent admissions for COPD, requiring prednisone
We discussed end stage COPD and its natural course
Can trial a longer prednisone course vs indefinite daily use
From the COPD perspective, will transition to nebulized therapy upon discharge: Ipratropium/albuterol 3-4 times a day with Pulmicort twice a day.
Hold inhalers.
Continue prednisone taper decrease by 10 mg every 72 hours, keep on 10 mg until seen in our office. Hopefully in the next 2 weeks.
Consider in the outpatient setting low-dose macrolide therapy.
CXR/CT obtained indicating no acute findings
Trop noted, denies chest pain. Likely non-PA.
Cardiology following
Prior ECHO results are reviewed indicating normal function, normal PA pressures
Repeat echocardiogram has been ordered.
Smoking history noted
Her severe anemia is likely contributing to symptoms as well.
Liver disease and hep C
New ascites noted on imaging
Consider GI consult for worsneing liver disease/stigmata
Abdominal ultrasound: Minimal ascites.
Will need outpatient pulmonary evaluation in our office for PFTs and 6MWT
Reviewed with patient
Overall prognosis poor in patient with end stage lung disease and cirrhotic liver disease
Consideration for GOC discussions-palliative care has been consulted. Correspondence reviewed. Patient is not ready for hospice.
She remains full code.
Patient was explained that her shortness of breath is multifactorial including advanced COPD, anemia, deconditioning..
We will follow

Diagnostic Data
Chest X-Ray:
PET scan-05/26/23 revealed a 1.5 cm sub-solid nodule in the anterior right lower lobe with mild metabolic activity without increased FDG accumulation on delayed imaging. SUV values 3.3/3.3. Low grade neoplasm is not entirely excluded. Fused image
607, page 47 of 84. No mediastinal adenopathy or hilar adenopathy. Slightly increased splenomegaly [address] Scan: CHEST 01/08/24- No acute disease of the chest. No evidence of pulmonary embolus. Findings suggesting cirrhosis. Stable. Moderate upper abdominal ascites. New. Probable splenomegaly. Stable. Stable right lower lobe pulmonary nodule. See
prior PET/CT report
Echo: 12/15/23- Normal LV size and systolic function. LVEF 60-65%. No regional wall motion abnormalities. Normal RV size and function. No significant valvular disease. Normal estimated PASP. Compared to prior echocardiogram in 2017, there is no
significant change.
PFT's: 05/06/23: FEV1 of 0.83 L, DLCO of 13%
07/17/18- FEV1 0.65L 31%, FVC 1.57L 59%, ratio 41
Reports and relevant images were personally reviewed.
Total time spent on this consultation __52__ minutes which includes review of history, physical exam, medications, laboratory data, personal review of imaging, extensive review of outpatient records, discussion with care team and respiratory therapy.
Subjective Data
-
Date of Service:
Date of Service: January 09, 2024
Chief Complaint: Pulmonary Follow Up (Acute exacerbation of COPD)
Objective Data
Data Reviewed
Vital Signs / I&O / Oxygen:
Vital Signs
Temp Pulse Resp BP Pulse Ox
98.2 F 78 16 131/63 93
01/09/24 11:05 01/09/24 11:21 01/09/24 11:21 01/09/24 11:05 01/09/24 11:05
Intake and Output
01/08/24 01/09/24 01/10/24
06:59 06:59 06:59
Intake Total 600 / 600
Balance 600 / 600
SaO2 93
Nasal Cannula flow liters per 3
minute
Physical Exam
General: Comfortable
HEENT: Normocephalic
Respiratory: Non-Labored Respirations
GI: Soft and Non Distended
Neurology: Awake, Alert and No Motor Deficits
Skin: Warm
Labs/Micro/Reports
Lab Data
01/08/24 05:39
01/08/24 05:38
Microbiology
01/08/24 00:20 Nasal Swab Influenza Types A & B (RUY) - Final
Negative for Influenza A & B, NAAT
Negative results must be combined with clinical observations
and patient history.
Nucleic Acid Amplification test (NAAT)performed on the
[employer] platform.
--- NOTE | 2024-01-09 15:33 | CM ---
Met with patient at the bedside; Initial assessment completed
Pharmacy verified: [facility] @ [address]
Patient lives with her son in his one floor apartment; no steps; she has her own bedroom and bath (tub w/shower)
PLOF: reported that she is independent with ambulation; managing her personal care is challenging
Recently started on home oxygen
No SNF utilization history
Active with [facility] for [facility] health services
Transport to be determined
Discharge plan to be determined pending hospital course
--- NOTE | 2024-01-09 16:04 | PTOTSP ---
Speech Therapy Evaluation:
Pt exhibits clinical signs of oropharyngeal dysphagia, likely chronic in nature related to history of dysphagia, COPD, and partial dentition, likely compounded by respiratory insufficiency in the setting of severe COPD and O2 requirement. Pt at an
increased risk of aspiration and related complications given tenuous respiratory status and concern for breathing swallow coordination. Pt also at risk for retrograde flow given esophageal history of poorly managed GERD, hx of gastric ulcers, hx GI
bleed, and hx esophageal varices.
Recommend:
1. Diet downgrade to IDDSI Level 6 (soft and bite sized) solids and thin liquids
2. Medications as tolerated
3. Aspiration and reflux precautions: upright all meals and at least 30 minutes following meals; small bites/sips; slow rate; alternate solids and liquids
4. ST to follow re: diet tolerance and to determine if pt would benefit from a repeat VFSS
[2024-01-09] MEDS: KCL 20 MEQ PO (16:08)
[2024-01-09] MEDS: LASIX 20 MG IV (16:08)
[2024-01-09 16:53] VITALS: BMI 17.9
[2024-01-09 19:19] VITALS: BP 130/61
[2024-01-09] MEDS: DESYREL 100 MG PO (21:53)
[2024-01-09 23:18] VITALS: BP 128/64
[2024-01-10] VITALS (8 sets, daily range): BP systolic 124–148; BP diastolic 26–68; PULSE 85; O2SAT 93–94; BMI 17.8
[2024-01-10 06:51] LABS: Hematocrit 25.1 % (37.0-47.0); Hemoglobin 7.2 g/dL (12.0-16.0); Mean Corp Hgb Conc. 28.7 g/dL (33.0-37.0); Mean Corpuscular Hgb 23.1 pg (27.0-31.0); Mean Corpuscular Volume 80.4 fL (81.0-99.0); Platelet Count 75 10^3/uL (130-400); Red Blood Cell Count 3.12 10^6/uL (4.20-5.40); Red Cell Dist. Width 16.1 % (11.5-14.5); White Blood Cell Count 5.1 10^3/uL (4.8-10.8)
[2024-01-10 07:10] LABS: Blood Urea Nitrogen 36 mg/dl (7-17); Calcium 8.5 mg/dl (8.4-10.2); Carbon Dioxide 39 mmol/L (22-30); Chloride 98 mmol/L (98-107); Estimated Creatinine Clearance 36 ml/min; Glucose 106 mg/dl (70-99); Magnesium 1.6 mg/dl (1.6-2.3); Sodium 140 mmol/L (135-145); eGFR 59.86
[2024-01-10] MEDS: PULMICORT 0.5 MG INH ×2 (07:29→19:03)
[2024-01-10] MEDS: DUONEB 3 ML INH ×4 (07:29→19:03)
--- NOTE | 2024-01-10 08:15 | W.PN.HOSP.TC ---
Today's Communication/Plan
-
see bold
Assessment / Plan
Assessment / Plan
Gen: Remains NAD, AAOx3.
Eyes: EOMI, PERRLA, no scleral icterus.
Neck: supple.
CV: RRR, +S1/S2, no m/r/g.
Resp: Remains distant breath sounds, CTAB, no rales, wheezes, or rhonchi.
Abd: Remains +BS, soft, mild distention consistent with ascites, ND
Skin: No rashes.
Neuro: CN 2-12 intact, non-focal.
Psych: Normal mood and affect.
CTA chest: No acute disease of the chest. No evidence of pulmonary embolus. Findings suggesting cirrhosis. Stable. Moderate upper abdominal ascites. New. Probable splenomegaly. Stable. Stable right lower lobe pulmonary nodule.
Abd U/S: Minimal perihepatic and perisplenic free fluid as well as trace ascites within the left lower quadrant.
Acute exacerbation of end-stage COPD:
-pulm following
-pt seen in c/s by palliative care, not interested in hospice at this time
-Patient with chronic hypoxemic respiratory failure, on 3L NC O2 at home
-cont prednisone, may need lifelong
-cont Duonebs/pulmicort
Other problems:
Acute nonischemic myocardial injury due to acute exacerbation of chronic, end-stage COPD: Cardiology saw in consultation. Check echo.
Cirrhosis with portal hypertension, splenomegaly, portosystemic vascular collaterals with history of esophageal varices and GI bleed: Abd U/S to without enough ascites to tap.
Essential hypertension: cont Cardizem CD/Diovan
FULL/Lovenox
Anticipated Discharge: Within 24 hours
Subjective/Interval History
-
Date of Service: January 10, 2024
Shortness of breath is slightly improved from yesterday.
Objective Data
-
Labs:
Laboratory Results
01/10/24
05:26
WBC 5.1
Hgb 7.2 L
Hct 25.1 L
Plt Count 75 L
Sodium 140
Potassium 4.0
Chloride 98
Carbon Dioxide 39 H
BUN 36 H
Creatinine 1.0
Glucose 106 H
Calcium 8.5
Vital Signs:
Vital Signs
Temp Pulse Resp BP Pulse Ox
98.4 F 84 18 133/63 98
01/10/24 07:14 01/10/24 07:32 01/10/24 07:32 01/10/24 07:14 01/10/24 07:32
I&O
01/09/24 01/10/24 01/11/24
06:59 06:59 06:59
Intake Total 600 / 600 1765 / 1765
Balance 600 / 600 1765 / 1765
[2024-01-10] MEDS: DIOVAN 320 MG PO (08:26)
[2024-01-10] MEDS: CARDIZEM CD 240 MG PO (08:27)
[2024-01-10] MEDS: PROTONIX 40 MG PO (08:27)
[2024-01-10] MEDS: DELTASONE 40 MG PO (08:27)
--- NOTE | 2024-01-10 09:27 | PTOTSP ---
pt currently demonstrates ability to complete simple ADLs, functional transfers, ambulation with supervision to no assistance. educated pt on energy conservation techniques, issued handout to pt. pt verbalized understanding. will defer to PT for
endurance training, as pt demonstrates no skilled OT needs in this setting. will sign off.
--- NOTE | 2024-01-10 12:51 | W.PN.PUL3 ---
Today's Communication / Plan
-
Discussed her diagnosis and end stage disease
She is ready to discuss hospice as she is too fearful of going home
Sons are at bedside and agree but need to discuss feasibility with CM
Discussed this with care team for next steps
Assessment
-
Patient is a 73-year-old female with previous history of severe COPD on home oxygen, hep C cirrhosis, former smoker presenting to ER with acute on chronic worsening shortness of breath, chest pain. She was hospitalized for similar symptoms
recently and discharged on 12/30/2023. She feels better when she is in the hospital and feels worse when she is at home. She is not sure what she has done differently to exacerbate her symptoms. She is short of breath with very little activity.
In the ER, chest x-ray was unremarkable. She did have small increase in her troponin. CT PE demonstrating negative study for pulmonary embolism. We are consulted for eval.
AECOPD, recurrent/frequent
Acute on chronic SOB
Pancytopenia
Chronic hypercarbic respiratory failure VBG 7.36
Hyperglycemia
Elevated troponins
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
Chronic obstructive pulmonary disease--severe
Follows with Dr Alonzo; PFT 05/06/23: FEV1 of 0.83 L, DLCO of 13%; 07/17/18- FEV1 0.65L 31%
Moderate/severe apical predominant centrilobular emphysema, severe diffusion impairment
Liver cirrhosis/Hepatitis C
Chronic alcohol use
Thrombocytopenia
Pulmonary nodule on CT.
Hypertension, poorly controlled
Plan:
Chronic use of 3L NC, she is currently on 4L
Prior history of lung disease is noted including severe COPD/emphysema
She has had frequent admissions for COPD, requiring prednisone
We discussed end stage COPD and its natural course
Can trial a longer prednisone course vs indefinite daily use
From the COPD perspective, will transition to nebulized therapy upon discharge: Ipratropium/albuterol 3-4 times a day with Pulmicort twice a day.
Hold inhalers.
Continue prednisone taper decrease by 10 mg every 72 hours, keep on 10 mg until seen in our office. Hopefully in the next 2 weeks.
Consider in the outpatient setting low-dose macrolide therapy.
CXR/CT obtained indicating no acute findings
Trop noted, denies chest pain. Likely non-PA.
Cardiology following
Prior ECHO results are reviewed indicating normal function, normal PA pressures
Repeat echocardiogram has been ordered.
Smoking history noted
Her severe anemia is likely contributing to symptoms as well.
Liver disease and hep C
New ascites noted on imaging
Consider GI consult for worsneing liver disease/stigmata
Abdominal ultrasound: Minimal ascites.
Will need outpatient pulmonary evaluation in our office for PFTs and 6MWT
Reviewed with patient
Overall prognosis poor in patient with end stage lung disease and cirrhotic liver disease
Consideration for GOC discussions-palliative care has been consulted. Correspondence reviewed. Patient is now reconsidering hospice
She is too fearful to go home
Discussed with care team

Diagnostic Data
Chest X-Ray:
PET scan-05/26/23 revealed a 1.5 cm sub-solid nodule in the anterior right lower lobe with mild metabolic activity without increased FDG accumulation on delayed imaging. SUV values 3.3/3.3. Low grade neoplasm is not entirely excluded. Fused image
607, page 47 of 68. No mediastinal adenopathy or hilar adenopathy. Slightly increased splenomegaly [address] Scan: CHEST 01/08/24- No acute disease of the chest. No evidence of pulmonary embolus. Findings suggesting cirrhosis. Stable. Moderate upper abdominal ascites. New. Probable splenomegaly. Stable. Stable right lower lobe pulmonary nodule. See
prior PET/CT report
Echo: 12/15/23- Normal LV size and systolic function. LVEF 60-65%. No regional wall motion abnormalities. Normal RV size and function. No significant valvular disease. Normal estimated PASP. Compared to prior echocardiogram in 2017, there is no
significant change.
PFT's: 05/06/23: FEV1 of 0.83 L, DLCO of 13%
07/17/18- FEV1 0.65L 31%, FVC 1.57L 59%, ratio 41
Reports and relevant images were personally reviewed.
Total time spent on this encounter __51__ minutes which includes review of history, physical exam, medications, laboratory data, personal review of imaging, extensive review of outpatient records, discussion with care team and respiratory therapy.
Subjective Data
-
Date of Service:
Date of Service: January 10, 2024
Chief Complaint: Pulmonary Follow Up (Acute exacerbation of COPD)
Subjective:
No new complaints, still SOB
She is afraid to go home
Son at bedside
Objective Data
Data Reviewed
Vital Signs / I&O / Oxygen:
Vital Signs
Temp Pulse Resp BP Pulse Ox
98.2 F 82 16 124/62 99
01/10/24 11:01 01/10/24 11:26 01/10/24 11:26 01/10/24 11:01 01/10/24 11:26
Intake and Output
01/09/24 01/10/24 01/11/24
06:59 06:59 06:59
Intake Total 600 / 600 1765 / 1765
Balance 600 / 600 1765 / 1765
SaO2 99
Nasal Cannula flow liters per 2
minute
Physical Exam
General: Comfortable and Good Appetite
HEENT: Normocephalic, Sinus Tenderness, Moist Mucous Membranes and Other (edentulous)
Cardiovascular: S1-S2 and Regular Rhythm
Respiratory: Clear (overall decreased) and Non-Labored Respirations
GI: Soft, Non Distended and Non Tender
Neurology: Awake, Alert, Oriented and No Motor Deficits
Skin: Warm, Dry and Good Color
Labs/Micro/Reports
Lab Data
01/10/24 05:26
01/10/24 05:26
Microbiology
01/08/24 00:20 Nasal Swab Influenza Types A & B (RUY) - Final
Negative for Influenza A & B, NAAT
Negative results must be combined with clinical observations
and patient history.
Nucleic Acid Amplification test (NAAT)performed on the
[employer] platform.
--- NOTE | 2024-01-10 13:32 | W.PN.CARDCBS ---
Addendum entered and electronically signed by Daya Rachel PA-C 01/13/24 13:37:
patient was given a dose of IV lasix 01/08 without significant improvement in symptoms and with mild bump in Cr and bump in BUN. not felt to have acute CHF exacerbation.
Original Note:
Today's Communication / Plan
-
Will sign off, recall if needed
Impression / Plan
-
Impression:
Acute on chronic Hypoxemic respiratory insufficiency with Exacerbation of COPD
Severe chronic obstructive pulmonary disease with chronic hypercapnia
Elevated troponin, suspected nonischemic myocardial injury; Peak 0.047
Hep C with cirrhosis and varices, history of GI bleed, poor candidate for colonoscopy, EGD
Pancytopenia
Dysphagia
History of alcohol abuse
Former tobacco history
Hypertension
Depression
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
Echocardiogram 12/15/2023: Normal LV size and function, EF 60-65%, normal RV, MAC, trace MR, aortic sclerosis, mild LVH
Limited echocardiogram 01/09/2024: Normal biventricular size and systolic function with hyperdynamic LV systolic function estimated 75-80%. Mild left ventricular hypertrophy. No significant LVOT obstruction. Trivial mitral and tricuspid
regurgitation. No pericardial effusion.
Plan:
Acute on chronic hypoxic respiratory insufficiency with severe COPD on chronic hypercapnia
-I do not think that she is overtly volume overloaded and would hold starting diuretics at this time
-I observed her while eating a soft meal that included salmon and mashed potatoes and she was having difficulty swallowing both stating food was getting stuff and coughing. Notify Dr. Cortez. Reviewed speech therapy evaluation done yesterday which
showed clinical signs of dysphagia. Aspiration likely complicated above COPD exacerbation. Please observe aspiration precautions and would consider GI evaluation
-Acute on chronic microcytic anemia with hemoglobin currently 7.2 g/dL. Anemia likely contributing to shortness of breath and will consider checking iron studies if not recently done; consider transfusion. Patient has pancytopenia and evidence of
cirrhosis with prior GI bleed.
-2D echocardiogram with normal biventricular size and systolic function and no hemodynamically significant valve pathology. Estimated right ventricular systolic pressure normal.
-Mildly abnormal cardiac troponin with atherosclerosis noted on noncardiac CT imaging likely related to nonischemic myocardial injury. Troponin has improved and she denies chest pain. Conservative management given advanced pulmonary disease
-Blood pressure stable on current medications.
-Sinus rhythm/sinus tachycardia on telemetry. Avoid beta-radha. Continue Cardizem.
-Will sign off, recall if needed
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
Subjective
Date of Service: January 10, 2024
Patient seen and examined while eating lunch. Complaining of salmon getting stuck and reports ongoing issues with both solid and liquid food getting stuck in her throat. Continues to have shortness of breath and cough. No chest pain or pressure.
No palpitations
Objective
Labs:
01/10/24 05:26
01/10/24 05:26
Labs
Hgb 7.2 g/dL (12.0-16.0) L 01/10/24 05:26
Hct 25.1 % (37.0-47.0) L 01/10/24 05:26
Plt Count 75 10^3/uL (130-400) L 01/10/24 05:26
Sodium 140 mmol/L (135-145) 01/10/24 05:26
Potassium 4.0 mmol/L (3.5-5.1) 01/10/24 05:26
BUN 36 mg/dl (7-17) H 01/10/24 05:26
Creatinine 1.0 mg/dL (0.6-1.0) 01/10/24 05:26
Glucose 106 mg/dl (70-99) H 01/10/24 05:26
Troponins
01/07/24 01/08/24 01/08/24
23:41 05:38 08:47
Troponin I 0.047 H* 0.040 H* 0.036 H*
01/08/24
11:35
Troponin I 0.028
Vital Signs and I&O:
Vital Signs
Temp Pulse Resp BP Pulse Ox
98.2 F 82 16 124/62 99
01/10/24 11:01 01/10/24 11:26 01/10/24 11:26 01/10/24 11:01 01/10/24 11:26
Vital Signs
Temp Pulse Resp BP Pulse Ox
98.2 F 82 16 124/62 99
01/10/24 11:01 01/10/24 11:26 01/10/24 11:26 01/10/24 11:01 01/10/24 11:26
Intake & Output
01/08/24 01/09/24 01/10/24 01/11/24
06:59 06:59 06:59 06:59
Intake Total 600 / 600 1765 / 1765
Balance 600 / 600 1765 / 1765
Physical Exam
Physical Exam
GEN: No distress, awake, alert, oriented x3. frail. on supp O2
HEENT: mmm
LUNGS: Scattered rhonchi, no wheezes
CV: Reg, S1/S2, 1/6 murmur
ABD: soft, BS+, NT/ND
EXT: No cyanosis, clubbing, edema
--- NOTE | 2024-01-10 15:14 | CM ---
Reviewed the chart notes and spoke with the patient and her son at the bedside. CM consult for hospice received. Patient interested in hospice. Referral sent to Hospice. CM continues to be available to patient/family and is monitoring medical
plan for needs at discharge.
Plan: Discharge plans will depend on the patient's progress. Home with VN or home with hospice.
[2024-01-10] MEDS: MYLICON 80 MG PO (15:32)
--- NOTE | 2024-01-10 17:14 | HOSPNOTE ---
Spoke with the patients son Eleno . He states the family is considering placement in a SNF. Family has not yet decided on Hospice or palliative care at this time. Will continue to follow patient.
[2024-01-10] MEDS: DESYREL 100 MG PO (21:33)
[2024-01-11 03:15] VITALS: BP 121/62
[2024-01-11 07:10] VITALS: BP 119/71
[2024-01-11] MEDS: DUONEB 3 ML INH ×4 (07:29→18:15)
[2024-01-11] MEDS: PULMICORT 0.5 MG INH ×2 (07:29→18:15)
--- NOTE | 2024-01-11 08:07 | W.PN.HOSP.TC ---
Today's Communication/Plan
-
see bold
Assessment / Plan
Assessment / Plan
Gen: continues to remains NAD, AAOx3.
Eyes: EOMI, PERRLA, no scleral icterus.
Neck: supple.
CV: RRR, +S1/S2, no m/r/g.
Resp: distant breath sounds, faint rales R base
Abd: +BS, soft, minimal distention consistent with ascites, ND
Skin: No rashes.
Neuro: CN 2-12 intact, non-focal.
Psych: Normal mood and affect.
CTA chest: No acute disease of the chest. No evidence of pulmonary embolus. Findings suggesting cirrhosis. Stable. Moderate upper abdominal ascites. New. Probable splenomegaly. Stable. Stable right lower lobe pulmonary nodule.
Abd U/S: Minimal perihepatic and perisplenic free fluid as well as trace ascites within the left lower quadrant.
Acute exacerbation of end-stage COPD:
-pulm following
-Patient with chronic hypoxemic respiratory failure, on 3L NC O2 at home
-pt seen in c/s by palliative care, initially was not interested in hospice but as per pulmonary's note 01/10/24, pt now ready to discuss hospice
-cont prednisone, may need lifelong
-cont Duonebs/pulmicort
Dysphagia:
-Patient was seen by speech therapy and is on a modified diet (IDDSI-6)
-Check video swallow study
-Speech will need to continue to follow
-consideration for GI c/s pending VFSS and further eval by speech
Other problems:
Acute nonischemic myocardial injury due to acute exacerbation of chronic, end-stage COPD: Cardiology saw in consultation. Check echo.
Cirrhosis with portal hypertension, splenomegaly, portosystemic vascular collaterals with history of esophageal varices and GI bleed: Abd U/S to without enough ascites to tap.
Essential hypertension: cont Cardizem CD/Diovan
FULL/Lovenox
Anticipated Discharge: 24 - 48 hours
Subjective/Interval History
-
Date of Service: January 11, 2024
Pt reports SOB worse than yesterday.
Objective Data
-
Vital Signs:
Vital Signs
Temp Pulse Resp BP Pulse Ox
98.4 F 98 18 119/71 95
01/11/24 07:10 01/11/24 07:32 01/11/24 07:32 01/11/24 07:10 01/11/24 07:32
I&O
01/10/24 01/11/24 01/12/24
06:59 06:59 06:59
Intake Total 1765 / 1765 840 / 840
Balance 1765 / 1765 840 / 840
[2024-01-11] MEDS: CARDIZEM CD 240 MG PO (08:23)
[2024-01-11] MEDS: DIOVAN 320 MG PO (08:23)
[2024-01-11] MEDS: DELTASONE 40 MG PO (08:23)
[2024-01-11] MEDS: PROTONIX 40 MG PO (08:23)
[2024-01-11 11:00] VITALS: BP 146/69
--- NOTE | 2024-01-11 12:21 | W.PN.PUL3 ---
Today's Communication / Plan
-
CM consult placed, patient likely to pursue hospice, awaiting disposition
Continue prednisone taper
O2 weaned to 2L, doing well
Encouraged ambulation, OOB
Assessment
-
Patient is a 73-year-old female with previous history of severe COPD on home oxygen, hep C cirrhosis, former smoker presenting to ER with acute on chronic worsening shortness of breath, chest pain. She was hospitalized for similar symptoms
recently and discharged on 12/30/2023. She feels better when she is in the hospital and feels worse when she is at home. She is not sure what she has done differently to exacerbate her symptoms. She is short of breath with very little activity.
In the ER, chest x-ray was unremarkable. She did have small increase in her troponin. CT PE demonstrating negative study for pulmonary embolism. We are consulted for eval.
AECOPD, recurrent/frequent
Acute on chronic SOB
Pancytopenia
Chronic hypercarbic respiratory failure VBG 7.
Hyperglycemia
Elevated troponins
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
Chronic obstructive pulmonary disease--severe
Follows with Dr Alonzo; PFT 05/06/23: FEV1 of 0.83 L, DLCO of 13%; 07/17/18- FEV1 0.65L 31%
Moderate/severe apical predominant centrilobular emphysema, severe diffusion impairment
Liver cirrhosis/Hepatitis C
Chronic alcohol use
Thrombocytopenia
Pulmonary nodule on CT.
Hypertension, poorly controlled
Plan:
Chronic use of 3L NC, she is currently on 2L
Prior history of lung disease is noted including severe COPD/emphysema
She has had frequent admissions for COPD, requiring prednisone
We discussed end stage COPD and its natural course
Can trial a longer prednisone course vs indefinite daily use
From the COPD perspective, will transition to nebulized therapy upon discharge: Ipratropium/albuterol 3-4 times a day with Pulmicort twice a day.
Hold inhalers.
Continue prednisone taper decrease by 10 mg every 72 hours, keep on 10 mg until seen in our office. Hopefully in the next 2 weeks.
Consider in the outpatient setting low-dose macrolide therapy.
CXR/CT obtained indicating no acute findings
Trop noted, denies chest pain. Likely non-OK.
Cardiology following
Prior ECHO results are reviewed indicating normal function, normal PA pressures
Repeat echocardiogram has been ordered.
Smoking history noted
Her severe anemia is likely contributing to symptoms as well.
Liver disease and hep C
New ascites noted on imaging
Consider GI consult for worsneing liver disease/stigmata
Abdominal ultrasound: Minimal ascites.
Will need outpatient pulmonary evaluation in our office for PFTs and 6MWT
Reviewed with patient
Overall prognosis poor in patient with end stage lung disease and cirrhotic liver disease
Consideration for GOC discussions-palliative care has been consulted. Correspondence reviewed.
Patient is now reconsidering hospice--consult placed
She is too fearful to go home
Discussed with care team

Diagnostic Data
Chest X-Ray:
PET scan-05/26/23 revealed a 1.5 cm sub-solid nodule in the anterior right lower lobe with mild metabolic activity without increased FDG accumulation on delayed imaging. SUV values 3.3/3.3. Low grade neoplasm is not entirely excluded. Fused image
607, page 47 of 84. No mediastinal adenopathy or hilar adenopathy. Slightly increased splenomegaly [address] Scan: CHEST 01/08/24- No acute disease of the chest. No evidence of pulmonary embolus. Findings suggesting cirrhosis. Stable. Moderate upper abdominal ascites. New. Probable splenomegaly. Stable. Stable right lower lobe pulmonary nodule. See
prior PET/CT report
Echo: 12/15/23- Normal LV size and systolic function. LVEF 60-65%. No regional wall motion abnormalities. Normal RV size and function. No significant valvular disease. Normal estimated PASP. Compared to prior echocardiogram in 2017, there is no
significant change.
PFT's: 05/06/23: FEV1 of 0.83 L, DLCO of 13%
07/17/18- FEV1 0.65L 31%, FVC 1.57L 59%, ratio 41
Reports and relevant images were personally reviewed.
Total time spent on this encounter __36__ minutes which includes review of history, physical exam, medications, laboratory data, personal review of imaging, extensive review of outpatient records, discussion with care team and respiratory therapy.
Subjective Data
-
Date of Service:
Date of Service: January 11, 2024
Chief Complaint: Pulmonary Follow Up (Acute exacerbation of COPD)
Subjective:
No new complaints
Remains the same
Lack of appetite noted
Objective Data
Data Reviewed
Vital Signs / I&O / Oxygen:
Vital Signs
Temp Pulse Resp BP Pulse Ox
98.3 F 101 18 146/69 96
01/11/24 11:00 01/11/24 11:22 01/11/24 11:22 01/11/24 11:00 01/11/24 11:22
Intake and Output
01/10/24 01/11/24 01/12/24
06:59 06:59 06:59
Intake Total 1765 / 1765 840 / 840
Balance 1765 / 1765 840 / 840
SaO2 96
Nasal Cannula flow liters per 2
minute
Physical Exam
General: Comfortable and Good Appetite
HEENT: Normocephalic, Sinus Tenderness, Moist Mucous Membranes and Other (edentulous)
Cardiovascular: S1-S2 and Regular Rhythm
Respiratory: Clear (overall decreased) and Non-Labored Respirations
GI: Soft, Non Distended and Non Tender
Neurology: Awake, Alert, Oriented and No Motor Deficits
Skin: Warm, Dry and Good Color
Labs/Micro/Reports
Lab Data
01/10/24 05:26
01/10/24 05:26
[2024-01-11 15:10] VITALS: BP 140/75
[2024-01-11 19:03] VITALS: BP 143/85
[2024-01-11] MEDS: MYLICON 80 MG PO (21:21)
[2024-01-11] MEDS: DESYREL 100 MG PO (22:38)
[2024-01-11 23:34] VITALS: BP 156/83
[2024-01-12] VITALS (7 sets, daily range): BP systolic 147–173; BP diastolic 74–88; PULSE 100; O2SAT 95; BMI 18.3
[2024-01-12 06:43] LABS: Hematocrit 26.8 % (37.0-47.0); Hemoglobin 7.7 g/dL (12.0-16.0); Mean Corp Hgb Conc. 28.7 g/dL (33.0-37.0); Platelet Count 82 10^3/uL (130-400); Red Blood Cell Count 3.35 10^6/uL (4.20-5.40); Red Cell Dist. Width 16.3 % (11.5-14.5); White Blood Cell Count 5.1 10^3/uL (4.8-10.8)
[2024-01-12 07:05] LABS: Blood Urea Nitrogen 31 mg/dl (7-17); Calcium 8.7 mg/dl (8.4-10.2); Carbon Dioxide 39 mmol/L (22-30); Chloride 98 mmol/L (98-107); Estimated Creatinine Clearance 40 ml/min; Glucose 100 mg/dl (70-99); Magnesium 1.6 mg/dl (1.6-2.3); Potassium 4.5 mmol/L (3.5-5.1); Sodium 142 mmol/L (135-145); eGFR > 60.00
[2024-01-12] MEDS: PULMICORT 0.5 MG INH ×2 (07:24→20:03)
[2024-01-12] MEDS: DUONEB 3 ML INH ×4 (07:24→20:03)
[2024-01-12] MEDS: DIOVAN 320 MG PO (08:41)
[2024-01-12] MEDS: PROTONIX 40 MG PO (08:41)
[2024-01-12] MEDS: DELTASONE 40 MG PO (08:42)
[2024-01-12] MEDS: CARDIZEM CD 240 MG PO (08:42)
--- NOTE | 2024-01-12 09:58 | W.PN.PUL.V3 ---
Today's Communication / Plan
-
Prednisone 40 mg with slow taper to 10 mg until seen by pulmonary.
Duo nebs and Pulmicort nebulizers Continue
Hospice consideration
Assessment
-
Patient is a 73-year-old female with previous history of severe COPD on home oxygen, hep C cirrhosis, former smoker presenting to ER with acute on chronic worsening shortness of breath, chest pain. She was hospitalized for similar symptoms
recently and discharged on 12/30/2023. She feels better when she is in the hospital and feels worse when she is at home. She is not sure what she has done differently to exacerbate her symptoms. She is short of breath with very little activity.
In the ER, chest x-ray was unremarkable. She did have small increase in her troponin. CT PE demonstrating negative study for pulmonary embolism. We are consulted for eval.
AECOPD, recurrent/frequent
Acute on chronic SOB
Pancytopenia
Chronic hypercarbic respiratory failure VBG 7.
Hyperglycemia
Elevated troponins
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
Chronic obstructive pulmonary disease--severe
Follows with Dr Alonzo; PFT 05/06/23: FEV1 of 0.83 L, DLCO of 13%; 07/17/18- FEV1 0.65L 31%
Moderate/severe apical predominant centrilobular emphysema, severe diffusion impairment
Liver cirrhosis/Hepatitis C
Chronic alcohol use
Thrombocytopenia
Pulmonary nodule on CT.
Hypertension, poorly controlled
Tympanoplasty. Right thumb
Plan:
Respiratory status still somewhat tenuous though slowly improving.
Supplemental oxygen as needed.-Chronically. She uses 3 L.
Slow prednisone taper-210 mg until seen in the office
Consider outpatient low-dose macrolide therapy..
Frequent admissions for COPD requiring prednisone-pulmonary team as discussed. End-stage nature of her COPD
Aspiration precautions.
Mucolytic.
Video swallow 01/12/24-no evidence for airway aspiration
Follow hemoglobin.
Transfuse as needed.
Severe anemia contributing to shortness of breath.
Cardiology following-correspondence reviewed-signed off 01/10/24
Echocardiogram 01/09/24-EF 75-80%, trace mitral regurgitation
Liver disease and hep C
New ascites noted on imaging Left lower extremity DVT. 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
Consider GI consult for worsneing liver disease/stigmata
Abdominal ultrasound: Minimal ascites.
Will need outpatient pulmonary evaluation in our office for PFTs and 6MWT
Reviewed with patient
Overall prognosis poor in patient with end stage lung disease and cirrhotic liver disease
Consideration for GOC discussions-palliative care has been consulted. Correspondence reviewed.
Patient is now reconsidering hospice--consult placed
She is too fearful to go home

Diagnostic Data
PET scan-05/26/23 revealed a 1.5 cm sub-solid nodule in the anterior right lower lobe with mild metabolic activity without increased FDG accumulation on delayed imaging. SUV values 3.3/3.3. Low grade neoplasm is not entirely excluded. Fused image
607, page 47 of 84. No mediastinal adenopathy or hilar adenopathy. Slightly increased splenomegaly [address] Scan: CHEST 01/08/24- No acute disease of the chest. No evidence of pulmonary embolus. Findings suggesting cirrhosis. Stable. Moderate upper abdominal ascites. New. Probable splenomegaly. Stable. Stable right lower lobe pulmonary nodule. See
prior PET/CT report
Echo: 12/15/23- Normal LV size and systolic function. LVEF 60-65%. No regional wall motion abnormalities. Normal RV size and function. No significant valvular disease. Normal estimated PASP. Compared to prior echocardiogram in 2017, there is no
significant change.
PFT's: 05/06/23: FEV1 of 0.83 L, DLCO of 13%
07/17/18- FEV1 0.65L 31%, FVC 1.57L 59%, ratio 41
Reports and relevant images were personally reviewed.
Subjective Data
-
Date of Service:
Date of Service: January 12, 2024
Chief Complaint: Pulmonary Follow Up (Acute exacerbation of COPD) and Dyspnea Follow Up
Subjective:
Still with some wheezing, no complaints of worsening shortness breath, chest pain, productive cough
Review of Systems
General: Other ( per HPI)
Objective Data
Data Reviewed
Vital Signs / I&O:
Vital Signs
Temp Pulse Resp BP Pulse Ox
98.5 F 105 19 164/82 93
01/12/24 08:16 01/12/24 08:16 01/12/24 08:16 01/12/24 08:41 01/12/24 08:16
Intake and Output
01/11/24 01/12/24 01/13/24
06:59 06:59 06:59
Intake Total 840 / 840 2130 / 2130
Balance 840 / 840 2130 / 2130
SaO2: 93
Nasal Cannula flow liters per minute: 2
Physical Exam
General: Comfortable and Good Appetite
HEENT: Normocephalic, Sinus Tenderness, Moist Mucous Membranes and Other (edentulous)
Cardiovascular: S1-S2 and Regular Rhythm
Respiratory: Clear (overall decreased) and Non-Labored Respirations
GI: Soft, Non Distended and Non Tender
Neurology: Awake, Alert, Oriented and No Motor Deficits
Skin: Warm, Dry and Good Color
Labs/Micro/Reports
Lab Data
01/12/24 05:37
01/12/24 05:37
--- NOTE | 2024-01-12 10:39 | CM ---
Patient seen at bedside with physician. Patient requested CM send referrals to SNF options in [place] and [place]. She is not sure what she wants and was on her way to Video Swallow testing. CM will send referrals and continue to follow for
discharge planning needs.
PLan; SNF vs home with hospice vs Palliative care.
--- NOTE | 2024-01-12 10:47 | W.PN.HOSP.TC ---
Today's Communication/Plan
-
VSE
d/c planning
Assessment / Plan
Assessment / Plan
pt is a 73 year old female
Acute exacerbation of end-stage COPD--apprec pulm--pt with chronic hypoxemic resp failure (on 3L O2 at home)--pt afraid to go home--interested in hospice after discussion with pulm--cont prednisone, duonebs, pulmicort--await pt decision
Dysphagia---Patient was seen by speech therapy and is on a modified diet (IDDSI-6)--for VSE--PT/OT
Acute nonischemic myocardial injury due to acute exacerbation of chronic, end-stage COPD-- apprec cards--echo with EF 75-80%
Cirrhosis with portal hypertension, splenomegaly, portosystemic vascular collaterals with history of esophageal varices and GI bleed-- Abd U/S to without enough ascites to tap
Essential hypertension-- cont Cardizem CD, Diovan
code status-FULL CODE
DVT proph -- lovenox
Anticipated Discharge: Within 24 hours
Subjective/Interval History
-
Date of Service: January 12, 2024
pt c/o coughing up 'green stuff'
Objective Data
-
Labs:
Laboratory Results
01/12/24
05:37
WBC 5.1
Hgb 7.7 L
Hct 26.8 L
Plt Count 82 L
Sodium 142
Potassium 4.5
Chloride 98
Carbon Dioxide 39 H
BUN 31 H
Creatinine 0.9
Glucose 100 H
Calcium 8.7
Vital Signs:
max temp for 24 hours
01/12/24
03:40
Temp 98.6 F
Vital Signs
Temp Pulse Resp BP Pulse Ox
98.5 F 105 19 164/82 93
01/12/24 08:16 01/12/24 08:16 01/12/24 08:16 01/12/24 08:41 01/12/24 09:58
I&O
01/11/24 01/12/24 01/13/24
06:59 06:59 06:59
Intake Total 840 / 840 0 / 0
Balance 840 / 840 2129
Review of Systems
-
All other systems: Reviewed and negative
Physical Exam
-
General: Well Developed, Well Nourished and No Apparent Distress
HEENT: Normocephalic, Atraumatic and Oxygen
Respiratory: Decreased Breath Sounds (faint high pitched wheezing)
Cardiac: Regular Rhythm and S1/S2; Negative Murmur
GI: Soft, Nontender, Nondistended and Normal Bowel Sounds
Musculoskeletal: No Clubbing, No Cyanosis and No Edema
Neuro: Awake and Alert
Psych: Anxious
--- NOTE | 2024-01-12 11:45 | PTOTSP ---
Video Swallow Study
Summary: Oral/pharyngeal stages of swallowing within functional limits. No aspiration occurred. Esophageal sweep significant for retention that cleared with a liquid wash. Continue dysphagia diet given work of breathing from known end stage COPD,
missing dentition (upper denture plate only), and esophageal screen findings above.
Recommend:
1. IDDSI Level 6 Soft/bite Sized, Thin Liquids
2. Medications: as best tolerated
3. Strategies: upright to 90 degrees, small single sips/bites, slow rate with breaks for breathing, alternate sips/bites throughout meal to assist with esophageal clearance, remain upright for at least 30 minutes after PO intake as a reflux
precaution
4. No further therapy with an CLEANER warranted. Please reconsult as appropriate.
5. GI consult as appropriate/pending GOC given esophageal screen above
--- NOTE | 2024-01-12 11:51 | W.PN.PAL2 ---
Today's Communication
-
Palliative Care follow up. total floor time 40 mins.
Patient seen at bedside, had VSE earlier today, results pending. Patient reports breathing is about the same. She reports she understands now that her lung disease is end stage. She has currently been staying with her son for past 4-5 months but he
works during the day, she feels she cannot be alone and they are looking into SNF for placement. She has medicaid. Reviewed her meeting with hospice, she is unsure, asks me to speak with her sons later today. Will call Eleno around 2:30 when he is
off of work.
Recommended SNF with hospice care.
Spoke to son eleno at 2:45. Discussed our conversation. At this time they are definetly wanting SNF placement, [facility] which CM is already exploring. They are leaning towards adding hospice services to provide
comfort. Eleno will be coming into the hospital later today and plans to talk more about this with his mom and brother and will inform when they have made a decision.
Assessment / Plan
-
Assessment/Plan:
ongoing decisions are hospice.
family would prefer placement at SNF
Reason for Admission
Illness Course/HPI
73 year old F with PMH of end stage COPD on home O2 , hypertension, hep C cirrhosis, hx alcohol use admitted with worsening shortness of breath, dyspnea on exertion and chest pain.
Of note, patient was hospitalized approximately 2 weeks ago with shortness of breath. She was placed on oxygen at that time with improvement in her symptoms and patient was discharged on home O2. She was found by EMS to be tachycardic and
complained of chest pain. She was given aspirin and nitroglycerin.
Upon admission was afebrile with a temp of 99.6, she was satting 96% on 4 L. BP 180/97 tacy to 130s. Troponin was 0.047. CT PE negative for PE. No other acute infiltrates noted. COVID test was negative. Flu test was negative. CT with ascites.
Seen by pulm - discussed with her her end stage COPD and expected natural course. Patient has frequent admissions for COPD per notes. Full code.
Consult for GOC.
Seen at bedside this PM with no family present. States her lungs have gotten progressively worse and now cant even adjust herself in bed without getting short of breath. States she was told today her lungs are just 'existing' and not really working
anymore. She admits she was not following with pulm like she should be. Plans to do so moving forward and hopes this will make a difference in her symptoms and admissions. We discussed code status and she wishes to remain a full code. She is open to
palliative senior care visits on discharge.
Goals of Care Discussion
-
Patient able to participate in discussion at time of visit: Yes
Patient's Information Preferences: Defer to Family
Patient Goals
Comfort oriented
patient's main foucs at this time is safety - thinking about moving to a facility
Pain & Symptom Assessment
Patient Symptoms
Patient Symptoms: Dyspnea and Fatigue
Objective Data
-
Objective Data:
Vital Signs
Temp Pulse Resp BP Pulse Ox
98.6 F 113 18 172/88 95
01/12/24 11:28 01/12/24 11:28 01/12/24 11:28 01/12/24 11:28 01/12/24 11:28
Laboratory Results
01/12/24 05:37
01/12/24 05:37
Hemoglobin A1c 5.1 % (4.0-5.6) 01/08/24 05:39
Total Protein 6.4 g/dl (6.3-8.2) 01/07/24 23:41
Albumin 3.6 g/dl (3.5-5.0) 01/07/24 23:41
Palliative Performance Scale
Palliative Performance Scale:
PPS Level Ambulation Activity & Evidence of Disease Self Care Intake Conscious Level
100% Full Normal Activity & Work; Full Intake Full
No Evidence of Disease
90% Full Normal Activity & Work; Full Normal Full
Some Evidence of Disease
80% Full Normal Activity with Effort Full Normal or Full
Some Evidence of Disease Reduced
70% Reduced Unable Normal Job/Work Full Normal or Full
Significant Disease Reduced
60% Reduced Unable Hobby/Housework Occasional Normal or Full or Confusion
Significant Disease Assistance Reduced
50% Mainly Sit/Lie Unable to do Any Work Considerable Normal or Full or Confusion
Extensive Disease Assistance Req'd Reduced
40% Mainly in Bed Unable to do Most Activity Mainly Assistance Normal or Full or Drowsy;
Extensive Disease Reduced +/- Confusion
30% Totally Bed Unable to do Any Activity Total Care Normal or Full or Drowsy;
Bound Extensive Disease Reduced +/- Confusion
20% Totally Bed Bound Unable to do Any Activity Total Care Minimal to Full or Drowsy;
Extensive Disease Sips +/- Confusion
10% Totally Bed Bound Unable to do Any Activity Total Care Mouth Care Drowsy or Coma;
Extensive Disease Only +/- Confusion
0%
PPS Score Level:
Palliative Performance Score Response
Palliative Performance Score Response: 40%
Physical Exam
-
General: Well Developed and Well Nourished
HEENT: Oxygen
Respiratory: Other (increased wob with conversation )
Neuro: Awake and Alert
Psych: Calm
--- NOTE | 2024-01-12 15:27 | PN.CDI ---
CDI
- -
CDI:
Physician Documentation Request
Admit Date: 01/08/24 02:55
Dear Cardiology,
Clinical Indicators:
Patient admitted with acute exacerbation of COPD.
01/08 PN, '...lungs are diminished with some dry crackles, neck veins are up...possible mild HFpEF'
Lasix 20 mg IV x 1 dose. (01/08)
BNP:
01/07/24
23:41
[id number] Pept 1510
Please clarify the likely acuity of CHF you are evaluating, treating or monitoring:
Acute HFpEF
HFpEF is ruled out
Other, please specify
Use of terms such as suspected, likely, concern for, or probable (associated with a specific diagnosis that is being evaluated, monitored, or treated as if it exists) are acceptable and can be coded in the inpatient setting, when documented at the
time of discharge.
Thank you,
Margi Avendano RN BSN
CDI Specialist
available via tiger text
Please use your independent medical judgment in providing your response.
[2024-01-12] MEDS: DESYREL 100 MG PO (22:31)
[2024-01-12] MEDS: MYLICON 80 MG PO (22:35)
[2024-01-13 03:12] VITALS: BP 150/74
[2024-01-13 06:00] VITALS: BMI 18.7
[2024-01-13 07:15] VITALS: BP 137/74
[2024-01-13] MEDS: DUONEB 3 ML INH ×4 (08:13→19:38)
[2024-01-13] MEDS: PULMICORT 0.5 MG INH ×2 (08:13→19:38)
[2024-01-13] MEDS: DIOVAN 320 MG PO (08:41)
[2024-01-13] MEDS: DELTASONE 40 MG PO (08:42)
[2024-01-13] MEDS: PROTONIX 40 MG PO (08:42)
[2024-01-13] MEDS: CARDIZEM CD 240 MG PO (08:42)
--- NOTE | 2024-01-13 09:46 | CM ---
Patient referrals sent via all scripts. Pending responses, CM spoke with patient son and he indicated that he wants patient to go for short term rehab and then make her decision about hospice. CM will continue to follow for discharge planning needs.
--- NOTE | 2024-01-13 10:14 | W.PN.PUL.V3 ---
Today's Communication / Plan
-
Wean oxygen
Comfort a priority
Hospice
Pulmonary will sign off-please call with questions
Assessment
-
Patient is a 73-year-old female with previous history of severe COPD on home oxygen, hep C cirrhosis, former smoker presenting to ER with acute on chronic worsening shortness of breath, chest pain. She was hospitalized for similar symptoms
recently and discharged on 12/30/2023. She feels better when she is in the hospital and feels worse when she is at home. She is not sure what she has done differently to exacerbate her symptoms. She is short of breath with very little activity.
In the ER, chest x-ray was unremarkable. She did have small increase in her troponin. CT PE demonstrating negative study for pulmonary embolism. We are consulted for eval.
AECOPD, recurrent/frequent
Acute on chronic SOB
Pancytopenia
Chronic hypercarbic respiratory failure VBG 7
Hyperglycemia
Elevated troponins
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
Chronic obstructive pulmonary disease--severe
Follows with Dr Alonzo; PFT 05/06/23: FEV1 of 0.83 L, DLCO of 13%; 07/17/18- FEV1 0.65L 31%
Moderate/severe apical predominant centrilobular emphysema, severe diffusion impairment
Liver cirrhosis/Hepatitis C
Chronic alcohol use
Thrombocytopenia
Pulmonary nodule on CT.
Hypertension, poorly controlled
Tympanoplasty. Right thumb
Plan:
Respiratory status still somewhat tenuous though mildly improved
Supplemental oxygen as needed.-Chronically-she uses 3 L.
Slow prednisone taper-20 mg until seen in the office
Consider outpatient low-dose macrolide therapy..
Frequent admissions for COPD requiring prednisone-pulmonary team as discussed. End-stage nature of her COPD
Aspiration precautions.
Mucolytic.
Video swallow 01/12/24-no evidence for airway aspiration
Follow hemoglobin.
Transfuse as needed.
Severe anemia contributing to shortness of breath.
Cardiology following-correspondence reviewed-signed off 01/10/24
Echocardiogram 01/09/24-EF 75-80%, trace mitral regurgitation
Liver disease and hep C
New ascites noted on imaging Left lower extremity DVT. 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
Consider GI consult for worsneing liver disease/stigmata
Abdominal ultrasound: Minimal ascites.
Will need outpatient pulmonary evaluation in our office for PFTs and 6MWT
Reviewed with patient
Overall prognosis poor in patient with end stage lung disease and cirrhotic liver disease
Consideration for GOC discussions-palliative care has been consulted. Correspondence reviewed.
She is too fearful to go home
Comfort a priority
Patient would like hospice-pulmonary will sign off-please call with questions

Diagnostic Data
PET scan-05/26/23 revealed a 1.5 cm sub-solid nodule in the anterior right lower lobe with mild metabolic activity without increased FDG accumulation on delayed imaging. SUV values 3.3/3.3. Low grade neoplasm is not entirely excluded. Fused image
607, page 47 of 84. No mediastinal adenopathy or hilar adenopathy. Slightly increased splenomegaly [address] Scan: CHEST 01/08/24- No acute disease of the chest. No evidence of pulmonary embolus. Findings suggesting cirrhosis. Stable. Moderate upper abdominal ascites. New. Probable splenomegaly. Stable. Stable right lower lobe pulmonary nodule. See
prior PET/CT report
Echo: 12/15/23- Normal LV size and systolic function. LVEF 60-65%. No regional wall motion abnormalities. Normal RV size and function. No significant valvular disease. Normal estimated PASP. Compared to prior echocardiogram in 2017, there is no
significant change.
PFT's: 05/06/23: FEV1 of 0.83 L, DLCO of 13%
07/17/18- FEV1 0.65L 31%, FVC 1.57L 59%, ratio 41
Reports and relevant images were personally reviewed.
Subjective Data
-
Date of Service:
Date of Service: January 13, 2024
Chief Complaint: Pulmonary Follow Up (Acute exacerbation of COPD) and Dyspnea Follow Up
Subjective:
Still with significant shortness of breath with exertion, overall slightly improved, no chest pain, abdominal pain, unable to produce sputum
Review of Systems
General: Other (Per HPI)
Objective Data
Data Reviewed
Vital Signs / I&O:
Vital Signs
Temp Pulse Resp BP Pulse Ox
98.5 F 95 20 137/74 95
01/13/24 07:15 01/13/24 08:41 01/13/24 08:15 01/13/24 08:41 01/13/24 09:12
Intake and Output
01/12/24 01/13/24 01/14/24
06:59 06:59 06:59
Intake Total 2130 / 0 1020 / 1020
Balance 2130 / 2130 1020 / 1020
SaO2: 95
Nasal Cannula flow liters per minute: 2
Physical Exam
General: Comfortable and Good Appetite
HEENT: Normocephalic, Sinus Tenderness, Moist Mucous Membranes and Other (edentulous)
Cardiovascular: S1-S2 and Regular Rhythm
Respiratory: Clear (overall decreased) and Non-Labored Respirations
GI: Soft, Non Distended and Non Tender
Neurology: Awake, Alert, Oriented and No Motor Deficits
Skin: Warm, Dry and Good Color
Labs/Micro/Reports
Lab Data
01/12/24 05:37
01/12/24 05:37
--- NOTE | 2024-01-13 10:45 | W.PN.HOSP.TC ---
Today's Communication/Plan
-
can d/c when place for hospice chosen by pt/family
Assessment / Plan
Assessment / Plan
pt is a 73 year old female
Acute exacerbation of end-stage COPD--apprec pulm--pt with chronic hypoxemic resp failure (on 3L O2 at home)--pt afraid to go home--interested in hospice after discussion with pulm--cont prednisone, duonebs, pulmicort--pt wants hospice and wants [facility]--CM working on places
Dysphagia---Patient was seen by speech therapy and is on a modified diet (IDDSI-6)--VSE confirms current diet--PT/OT
Acute nonischemic myocardial injury due to acute exacerbation of chronic, end-stage COPD-- apprec cards--echo with EF 75-80%
Cirrhosis with portal hypertension, splenomegaly, portosystemic vascular collaterals with history of esophageal varices and GI bleed-- Abd U/S to without enough ascites to tap
Essential hypertension-- cont Cardizem CD, Diovan
code status-FULL CODE
DVT proph -- lovenox
Anticipated Discharge: Within 24 hours
Subjective/Interval History
-
Date of Service: January 13, 2024
pt stating that she wants hospice and wants hospice
Objective Data
-
Vital Signs:
max temp for 24 hours
01/13/24
07:15
Temp 98.5 F
Vital Signs
Temp Pulse Resp BP Pulse Ox
98.5 F 95 20 137/74 95
01/13/24 07:15 01/13/24 08:41 01/13/24 08:15 01/13/24 08:41 01/13/24 10:14
I&O
01/12/24 01/13/24 01/14/24
06:59 06:59 06:59
Intake Total 0 / 2130 1020 / 1020
Balance 2129 1020 / 1020
Review of Systems
-
All other systems: Reviewed and negative
Physical Exam
-
General: Well Developed, Well Nourished and No Apparent Distress
HEENT: Normocephalic, Atraumatic and Oxygen
Respiratory: Decreased Breath Sounds
Cardiac: Regular Rhythm and S1/S2; Negative Murmur
GI: Soft, Nontender, Normal Bowel Sounds and Distended
Musculoskeletal: No Clubbing, No Cyanosis and No Edema
Neuro: Awake and Alert
--- NOTE | 2024-01-13 10:59 | HOSPNOTE ---
Spoke to patient regarding rehab vs hospice. Patient has decided on hospice services and not interested in rehab services. Referrals have been sent and are pending acceptance. I called and spoke to patients son and explained the patients wishes
which he is now in agreement with. Reviewed if facility accepts patient and do not have a preferred hospice, we will follow patient and admit onto service. Hospice will continue to follow. CM updated. Primary nurse updated.
--- NOTE | 2024-01-13 11:30 | W.PN.PAL2 ---
Today's Communication
-
Met with patient at bedside. she had meeting with hospice earlier today. she has decided on hospice, looking into placement now.
No acute symptoms. patient had bm today - was constipated x 7d
Assessment / Plan
-
Assessment/Plan:
Plan for hospice at SNF
Reason for Admission
Illness Course/HPI
73 year old F with PMH of end stage COPD on home O2 , hypertension, hep C cirrhosis, hx alcohol use admitted with worsening shortness of breath, dyspnea on exertion and chest pain.
Of note, patient was hospitalized approximately 2 weeks ago with shortness of breath. She was placed on oxygen at that time with improvement in her symptoms and patient was discharged on home O2. She was found by EMS to be tachycardic and
complained of chest pain. She was given aspirin and nitroglycerin.
Upon admission was afebrile with a temp of 99.6, she was satting 96% on 4 L. BP 180/97 tacy to 130s. Troponin was 0.047. CT PE negative for PE. No other acute infiltrates noted. COVID test was negative. Flu test was negative. CT with ascites.
Seen by pulm - discussed with her her end stage COPD and expected natural course. Patient has frequent admissions for COPD per notes. Full code.
Consult for GOC.
Goals of Care Discussion
-
Patient able to participate in discussion at time of visit: Yes
Patient Goals
patient has decided on hospice
Objective Data
-
Objective Data:
Vital Signs
Temp Pulse Resp BP Pulse Ox
98.5 F 102 22 137/74 95
01/13/24 07:15 01/13/24 11:16 01/13/24 11:16 01/13/24 08:41 01/13/24 11:16
Laboratory Results
01/12/24 05:37
01/12/24 05:37
Hemoglobin A1c 5.1 % (4.0-5.6) 01/08/24 05:39
Total Protein 6.4 g/dl (6.3-8.2) 01/07/24 23:41
Albumin 3.6 g/dl (3.5-5.0) 01/07/24 23:41
Palliative Performance Scale
Palliative Performance Scale:
PPS Level Ambulation Activity & Evidence of Disease Self Care Intake Conscious Level
100% Full Normal Activity & Work; Full Intake Full
No Evidence of Disease
90% Full Normal Activity & Work; Full Normal Full
Some Evidence of Disease
80% Full Normal Activity with Effort Full Normal or Full
Some Evidence of Disease Reduced
70% Reduced Unable Normal Job/Work Full Normal or Full
Significant Disease Reduced
60% Reduced Unable Hobby/Housework Occasional Normal or Full or Confusion
Significant Disease Assistance Reduced
50% Mainly Sit/Lie Unable to do Any Work Considerable Normal or Full or Confusion
Extensive Disease Assistance Req'd Reduced
40% Mainly in Bed Unable to do Most Activity Mainly Assistance Normal or Full or Drowsy;
Extensive Disease Reduced +/- Confusion
30% Totally Bed Unable to do Any Activity Total Care Normal or Full or Drowsy;
Bound Extensive Disease Reduced +/- Confusion
20% Totally Bed Bound Unable to do Any Activity Total Care Minimal to Full or Drowsy;
Extensive Disease Sips +/- Confusion
10% Totally Bed Bound Unable to do Any Activity Total Care Mouth Care Drowsy or Coma;
Extensive Disease Only +/- Confusion
0%
PPS Score Level:
Palliative Performance Score Response
Palliative Performance Score Response: 50%
[2024-01-13 15:10] VITALS: BP 155/73
--- NOTE | 2024-01-13 16:07 | CM ---
CM spoke with patient son and updated him regarding facilities accepting patient; [facility], [facility], [facility]. Patient Son indicated that he would talk to his mother and update CM about decision. Patient for probable discharge
tomorrow with [facility] hospice to update. CM will continue to follow for discharge planning needs.
Plan; SNF tomorrow; pending patient choice with [facility] hospice
[2024-01-13] MEDS: DESYREL 100 MG PO (22:13)
[2024-01-13 23:00] VITALS: BP 167/85
[2024-01-14 03:00] VITALS: BP 151/62
[2024-01-14] MEDS: DUONEB 3 ML INH ×4 (07:17→19:05)
[2024-01-14] MEDS: PULMICORT 0.5 MG INH ×2 (07:17→19:05)
[2024-01-14] MEDS: CARDIZEM CD 240 MG PO (07:40)
[2024-01-14] MEDS: PROTONIX 40 MG PO (07:40)
[2024-01-14] MEDS: DELTASONE 40 MG PO (07:40)
[2024-01-14] MEDS: DIOVAN 320 MG PO (07:41)
[2024-01-14 07:48] VITALS: BP 178/80
--- NOTE | 2024-01-14 09:58 | PTCARENOTE ---
Pts BP is 178/80 this AM, scheduled valsartan and cozaar administered. Pt in respiratory distress at this time, respiratory called for AM treatment to be provided. No new orders at this time.
--- NOTE | 2024-01-14 09:58 | CM ---
Patient requested [facility]. CM updated liaison and she will call patient son to review plan. Patient plan is for [facility] hospice at SNF. Out of hospital DNR form completed on chart. CM will continue to follow for discharge planning needs.
Plan; SNF with hospice.
[2024-01-14] MEDS: MORPHINE SULFATE 1 MG IV (11:12)
--- NOTE | 2024-01-14 13:06 | CM ---
Addendum entered by Milvia Vallecillo 01/14/24 16:12:
Facility requested patient transfer tomorrow am. CM updated ambulance request for 10am tomorrow. CM will call to patient son and update. Nursing updated.
Original Note:
Patient seen at bedside with physician. Patient confirmed that she wanted to go to [facility] and CM provided IMM. Patient asked CM to review with patient son. CM spoke with Eleno and will e-mail form to him at [email or web address]. Patient to
sign on [facility] hospice tomorrow and out of hospital DNR form is on chart. CM will continue to follow for discharge planning needs.
Plan; transfer to SNF today
please call report to [phone]/fax [phone]
--- NOTE | 2024-01-14 13:10 | W.PN.HOSP.TC ---
Today's Communication/Plan
-
d/c to SNF to start hospice
Assessment / Plan
Assessment / Plan
pt is a 73 year old female
Acute exacerbation of end-stage COPD--apprec pulm--pt with chronic hypoxemic resp failure (on 3L O2 at home)--pt afraid to go home--interested in hospice after discussion with pulm--cont prednisone, duonebs, pulmicort--pt wants hospice and wants [facility]--accepted to SNF--ok for d/c to SNF for hospice
abdominal pain/SOB--STAT OBS series without obstruction--stool present
Dysphagia---Patient was seen by speech therapy and is on a modified diet (IDDSI-6)--VSE confirms current diet--PT/OT
Acute nonischemic myocardial injury due to acute exacerbation of chronic, end-stage COPD-- apprec cards--echo with EF 75-80%
Cirrhosis with portal hypertension, splenomegaly, portosystemic vascular collaterals with history of esophageal varices and GI bleed-- Abd U/S to without enough ascites to tap
Essential hypertension-- cont Cardizem Ryan EUGENE
code status-FULL CODE
DVT proph -- lovenox
Anticipated Discharge: Today
Subjective/Interval History
-
Date of Service: January 14, 2024
pt in pain and SOB--does not feel good
Objective Data
-
Vital Signs:
max temp for 24 hours
01/14/24
03:00
Temp 98.4 F
Vital Signs
Temp Pulse Resp BP Pulse Ox
98.0 F 101 20 178/80 95
01/14/24 07:48 01/14/24 12:05 01/14/24 12:05 01/14/24 07:48 01/14/24 12:05
I&O
12/03/24 12/04/24 12/05/24
06:59 06:59 06:59
Intake Total 1020 / 1020 1200 / 1200
Balance 1020 / 1020 1200 / 1200
Review of Systems
-
Unable to obtain full review of systems at this time due to: Acuity
Respiratory: Reports Trouble Breathing
Abdomen/GI: Reports Abdominal Pain and Bloated
Physical Exam
-
General: Appears Chronically Ill and Cachectic
HEENT: Normocephalic, Atraumatic and Oxygen
Respiratory: Decreased Breath Sounds
Cardiac: Regular Rhythm and S1/S2; Negative Murmur
GI: Soft, Tender and Distended; Negative Normal Bowel Sounds (high pitched)
Musculoskeletal: No Clubbing, No Cyanosis and No Edema
Skin: Warm
Neuro: Awake
Psych: Calm
--- NOTE | 2024-01-14 14:32 | HOSPNOTE ---
Spoke with son Andrey and the patient is going to [facility]. Andrey understands that patient will be discharged today with [facility] since they are the preferred hospice provider and can offer aide services 5 days a week. CM updated.
[2024-01-14 15:18] VITALS: BP 149/71
[2024-01-14] MEDS: DESYREL 100 MG PO (22:22)
[2024-01-14 23:16] VITALS: BP 137/64
[2024-01-15] MEDS: DUONEB 3 ML INH ×3 (03:51→09:36)
[2024-01-15 07:00] VITALS: BP 170/76
[2024-01-15] MEDS: PULMICORT 0.5 MG INH (07:25)
[2024-01-15] MEDS: CARDIZEM CD 240 MG PO (08:20)
[2024-01-15] MEDS: DIOVAN 320 MG PO (08:20)
[2024-01-15] MEDS: PROTONIX 40 MG PO (08:20)
[2024-01-15] MEDS: DELTASONE 40 MG PO (08:20)
--- NOTE | 2024-01-15 09:48 | CM ---
Addendum entered by Milvia Vallecillo 01/15/24 09:50:
please call report to [phone]/fax [phone]
Original Note:
Patient seen at bedside. IMM signed and form placed on chart. Patient indicated that she was eager to go to SNF and was appreciative of supports. CM confirmed that patient is still full code and out of hospital DNR not appropriate at this time.
Patient plan is to sign onto hospice when she arrives at SNF. CM will continue to follow for discharge planning needs.
Plan;SNF with [facility].
--- NOTE | 2024-01-15 09:48 | PTCARENOTE ---
pt on standing 3L. ambulating to the bathroom with minimal assist/standby. pt received prn duoneb for SOB. report called to [facility] by this nurse at [phone]. phone number used was [phone]. pt currently full code and will be going to facility
on hospice. pt opting to go to facility in gown, did not want to change. all morning medications taken with water and breakfast was given.
--- NOTE | 2024-01-15 09:53 | W.PN.HOSP.TC ---
Today's Communication/Plan
-
d/c
Assessment / Plan
Assessment / Plan
pt is a 73 year old female
Acute exacerbation of end-stage COPD--apprec pulm--pt with chronic hypoxemic resp failure (on 3L O2 at home)--pt afraid to go home--interested in hospice after discussion with pulm--cont prednisone, duonebs, pulmicort--pt wants hospice and wants [facility]--accepted to SNF--ok for d/c to SNF for hospice
abdominal pain/SOB--STAT OBS series without obstruction--stool present
Dysphagia---Patient was seen by speech therapy and is on a modified diet (IDDSI-6)--VSE confirms current diet--PT/OT
Acute nonischemic myocardial injury due to acute exacerbation of chronic, end-stage COPD-- apprec cards--echo with EF 75-80%
Cirrhosis with portal hypertension, splenomegaly, portosystemic vascular collaterals with history of esophageal varices and GI bleed-- Abd U/S to without enough ascites to tap
Essential hypertension-- cont Cardizem CD, Diovan
code status-FULL CODE
DVT proph -- lovenox
Anticipated Discharge: Today
Subjective/Interval History
-
Date of Service: January 15, 2024
pt ready for d/c
Objective Data
-
Vital Signs:
max temp for 24 hours
01/15/24
07:00
Temp 99.6 F
Vital Signs
Temp Pulse Resp BP Pulse Ox
99.6 F 122 22 170/76 94
01/15/24 07:00 01/15/24 09:38 01/15/24 09:38 01/15/24 08:20 01/15/24 09:43
I&O
01/14/24 01/15/24 01/16/24
06:59 06:59 06:59
Intake Total 1200 / 1200 720 / 720
Balance 1200 / 1200 720 / 720
Review of Systems
-
All other systems: Reviewed and negative
Physical Exam
-
General: Appears Chronically Ill and Cachectic
HEENT: Normocephalic, Atraumatic and Oxygen
Respiratory: Decreased Breath Sounds
Cardiac: Regular Rhythm, S1/S2 and Tachycardic
GI: Soft, Nontender, Nondistended and Normal Bowel Sounds
Musculoskeletal: No Clubbing, No Cyanosis and No Edema
Neuro: Awake
Psych: Calm
--- NOTE | 2024-01-15 16:25 | W.DCSUMMARY ---
Discharge Summary
Discharge Data
Date of Admission: 01/08/24
Date of Discharge: 01/15/24
Total time spent discharging patient (in min): 33
-
Pending Results: No
Hospital Course
Primary care physician : Fer Motta
Principal Discharge diagnosis : Acute exacerbation of end-stage chronic obstructive pulmonary disease
Chronic Discharge diagnosis : Dysphagia, acute nonischemic myocardial injury, cirrhosis with portal hypertension, splenomegaly, portosystemic vascular collaterals, essential hypertension
Hospital Course : Patient is a 73-year-old female with chronic obstructive pulmonary disease end-stage he was recently placed on home oxygen up to 3 L with activity. She presented with 1 day history of worsening shortness of breath and dyspnea on
exertion. Patient was hospitalized 12 days prior with shortness of breath. She was found to have baseline hypoxia rather than exacerbation of COPD at that time. She was placed on oxygen and symptoms improved. She was discharged home. Patient
states that she has persistent shortness of breath. She reported that she could be lying down and then suddenly developed shortness of breath. With any activity she is short of breath. She reports chest tightness without any radiation and denies
cough. She denies lower extremity swelling fevers, or chills. Patient was 96% on 4 L in the emergency department COVID was negative, flu is negative, CT chest was negative for pulmonary embolism. Patient was admitted.
Problem #1: Acute exacerbation of end-stage chronic obstructive pulmonary disease. Patient was seen in consultation by both pulmonary and palliative care. Patient was afraid to go home as she does not feel that she can be taken care of properly
there. After discussions with pulmonary she is interested in hospice and has chosen to go to [facility] with hospice initiation once on arrival. Patient was placed on prednisone, DuoNebs, Pulmicort. She has been accepted to assisted
facility and is stable for discharge with hospice at this time. Patient was continued on her chronic oxygen therapy.
Problem #2: All other medical issues. These include Dysphagia, acute nonischemic myocardial injury, cirrhosis with portal hypertension, splenomegaly, portosystemic vascular collaterals, essential hypertension. These medical issues were stable
during her hospitalization. Medications were continued as able. Ultrasound was done which did not show enough fluid to tap.
Patient is stable for discharge to SNF to start hospice. If there are any questions regarding this dictation or her hospital stay, please not hesitate to call. Our office number is [phone].
Time for discharge 33 minutes.
Important imaging findings :
OBS SERIES IMPRESSION:
No acute cardiopulmonary abnormality.
Nonobstructive bowel gas pattern. Contrast is present within the colon and rectum from recent prior swallow study.
CHEST CT IMPRESSION:
No acute disease of the chest. No evidence of pulmonary embolus.
Findings suggesting cirrhosis. Stable.
Moderate upper abdominal ascites. New.
Probable splenomegaly. Stable
Stable right lower lobe pulmonary nodule.
Discharge Plan
-
Patient Disposition: Long Term/SNF
Discharge Diagnosis/Procedures: Acute exacerbation of end-stage chronic obstructive pulmonary disease, dysphagia, acute nonischemic myocardial injury, cirrhosis with portal hypertension, splenomegaly, portosystemic vascular collaterals with history
of esophageal varices and gastrointestinal bleed, essential hypertension
Condition: Fair
Diet: As tolerated and Regular
Additional Diets: Soft and bite sized
Activity: As tolerated
Driving Restrictions: No driving
Bathing Restrictions: None
Other Services: Hospice
Referrals:
Adam Alonzo MD [Active] - in two to three weeks
Fer Motta MD [Family Provider] - in less than 1 week
Prescriptions:
New
acetaminophen 325 mg Tablet
650 mg PO Q4HPRN PRN (Reason: temp > 101 F) Qty: 0 0RF
ipratropium-albuterol 0.5 mg-3 mg(2.5 mg base)/3 mL Solution For Nebulization
3 ml inhalation R QID Qty: 0 0RF
ipratropium-albuterol 0.5 mg-3 mg(2.5 mg base)/3 mL Solution For Nebulization
3 ml inhalation R Q4HPRN PRN (Reason: shortness of breath) Qty: 0 0RF
diltiazem HCl 240 mg Capsule,Extended Release 24hr
240 mg PO DAILY Qty: 0 0RF
polyethylene glycol 3350 17 gram Powder In Packet
17 g PO DAILYPRN PRN (Reason: constipation) Qty: 0 0RF
prednisone 20 mg Tablet
40 mg PO DAILY Qty: 0 0RF
Continued
omeprazole 40 mg Capsule,Delayed Release(Dr/Ec)
40 mg PO DAILY
trazodone 100 mg tablet
100 mg PO HS
budesonide 0.5 mg/2 mL suspension for nebulization
0.5 mg inhalation R BID
Anoro Ellipta 62.5-25 mcg/actuation blister with device
1 inh INHALATION R DAILY
simethicone 80 mg Tablet,Chewable
80 mg PO TIDPRN PRN (Reason: gas/bloating) 90 Days Qty: 90 0RF
valsartan 320 mg tablet
320 mg PO DAILY Qty: 90 2RF
Discontinued
propranolol 60 MG capsule,extended release 24 hr
60 mg PO DAILY
albuterol sulfate 90 mcg/actuation HFA aerosol inhaler
1 puff INHALATION R Q4HPRN PRN (Reason: sob/wheezing)
prednisone 10 mg tablet
10 mg PO DIRECTED Qty: 30 0RF
Rx Instructions:
40 mg (4 pills)X3 days, then 30 mg(3 pills)X3 days, then 20 mg (2 pills)x3 days, then 10 mg (1 pill)x3 days
Discharge Orders:
Discharge Patient (As Directed); Ordered 01/15/24
Ordered By: Jenni Smith
Discharge Date and Time
Discharge Date/Time: 01/15/24 10:37
Print Language: QATARI
== END 2024-01-15 10:37 | disposition hospice, inpatient (51) | DRG 191 ==
LOC: 2 NORTH 02:55
PROVIDERS: Emergency Medicine; Registered Nurse; ADMITTING PHYSICIAN Internal Medicine; ATTENDING PHYSICIAN Internal Medicine; CONSULT PHYSICIAN Internal Medicine Cardiovascular Disease; EMERGENCY PHYSICIAN Student in an Organized Health Care Education/Training Program; FAMILY PHYSICIAN Internal Medicine; OTHER PHYSICIAN Internal Medicine
DX: J44.1 Chronic obstructive pulmonary disease with (acute) exacerbation (principal); D61.818 Other pancytopenia; J96.12 Chronic respiratory failure with hypercapnia; I5A Non-ischemic myocardial injury (non-traumatic); K76.6 Portal hypertension; I85.10 Secondary esophageal varices without bleeding; R64 Cachexia; Z68.1 Body mass index [BMI] 19.9 or less, adult; Z51.5 Encounter for palliative care; K21.9 Gastro-esophageal reflux disease without esophagitis; I10 Essential (primary) hypertension; K74.60 Unspecified cirrhosis of liver; B19.20 Unspecified viral hepatitis C without hepatic coma; J43.2 Centrilobular emphysema; R13.10 Dysphagia, unspecified; R16.1 Splenomegaly, not elsewhere classified; F32.A Depression, unspecified; E78.00 Pure hypercholesterolemia, unspecified; Z11.52 Encounter for screening for COVID-19; Z87.891 Personal history of nicotine dependence; Z92.3 Personal history of irradiation; Z99.81 Dependence on supplemental oxygen; Z79.899 Other long term (current) drug therapy; Z79.51 Long term (current) use of inhaled steroids
CPT/HCPCS: 93308; 71275; 74022; 74230; 76705; 80048; 80053; 80061; 82805; 83036; 83735; 83880; 84484; 85025; 85027; 87502; 87811; 92526; 92610; 92611; 93005; 93321; 93325; 94640; 96374; 96375; 97116; 97161; 97165; 99285; Q9967

== ENCOUNTER 2024-03-04 10:39 | Inpatient (IN) | payer MEDICARE, OTHER, SELFPAY ==
[2024-03-03] VITALS (17 sets, daily range): BP systolic 87–138; BP diastolic 44–66; BMI 17.4
[2024-03-03] MEDS: DECADRON 6 MG IV (09:00)
[2024-03-03] MEDS: NSS 500 IV (09:01)
[2024-03-03 09:20] LABS: % Basophils 0.1 % (0-2); % Lymphocytes 3.5 % (20.5-51.1); % Monocytes 3.7 % (1.7-9.3); % Neutrophils 91.7 % (42.2-75.2); Absolute Immature Granulocytes 0.1 10^3/uL (0-0.05); Absolute Lymphocytes 0.4 10^3/uL (1.2-3.4); Absolute Monocytes 0.4 10^3/uL (0.1-0.6); Absolute Neutrophils 9.3 10^3/uL (1.4-6.5); Hematocrit 20.5 % (37.0-47.0); Hemoglobin 5.7 g/dL (12.0-16.0); Mean Corp Hgb Conc. 27.8 g/dL (33.0-37.0); Mean Corpuscular Hgb 19.9 pg (27.0-31.0); Mean Corpuscular Volume 71.7 fL (81.0-99.0); Nucleated Red Blood Cells % 0 %; Platelet Count 68 10^3/uL (130-400); Red Blood Cell Count 2.86 10^6/uL (4.20-5.40); Red Cell Dist. Width 16.7 % (11.5-14.5); White Blood Cell Count 10.1 10^3/uL (4.8-10.8)
[2024-03-03 09:21] LABS: COVID-19 Antigen Positive (Negative)
[2024-03-03 09:22] LABS: B.E. 4.4 mmol/L; HCO3 28.3 mmol/L (21-28); O2 Saturation % 93.5 % (94-98); PCO2 38 mmHg (32-35); pH 7.48 (7.35-7.45)
[2024-03-03 09:23] LABS: ALT (SGPT) 56 U/L (0-35); AST (SGOT) 36 U/L (14-36); Albumin 3.2 g/dl (3.5-5.0); Alkaline Phosphatase 55 U/L (38-126); Blood Urea Nitrogen 44 mg/dl (7-17); Calcium 8.3 mg/dl (8.4-10.2); Carbon Dioxide 28 mmol/L (22-30); Chloride 98 mmol/L (98-107); Glucose 114 mg/dl (70-99); Magnesium 1.7 mg/dl (1.6-2.3); Potassium 4.5 mmol/L (3.5-5.1); Sodium 134 mmol/L (135-145); Total Bilirubin 1.1 mg/dl (0.2-1.3); Total Protein 5.9 g/dl (6.3-8.2); eGFR 33.84
[2024-03-03 09:26] LABS: PO2 58 mmHg (83-108)
[2024-03-03 09:29] LABS: NT-proBNP 572 pg/ml
[2024-03-03 10:37] LABS: Lactic Acid 1.9 mmol/L (0.7-2.0)
--- NOTE | 2024-03-03 10:37 | ED.GENMED ---
History of Present Illness
General
Chief Complaint: Breathing Problem
Source: patient, family, ambulance crew and [facility]
Time Seen by Provider: 03/03/24 08:43
History of Present Illness
History of Present Illness:
Patient with history of oxygen dependent COPD, presents to ED from [facility] secondary to 3-day history of worsening cough with increased work of breathing, along with decreased appetite. Upon arrival, patient is somnolent but easily arousable,
and complaining of cough and shortness of breath. Denies fever. Denies chills. Denies chest pain. Denies nausea, vomiting, or diarrhea. Denies leg pain or swelling. Denies back pain. Of note, patient had been under hospice care, secondary to
her underlying end-stage lung disease. However, prior to arrival, patient's family, revoked hospice designation and requested treatment.
Past History
Past History
ED Past Medical History: COPD, GERD, HTN, Psychiatric (Depression, insomnia) and Other (Gastritis/ulcer, PNA, Cirrhosis of the liver, GI bleeding. Hemorrhoids. Hep C, Ulcers, Esopohageal varices. UTI, Anemia, )
ED Past Surgical History: Other
Social History
Tobacco: Former smoker
Alcohol: Occasional
Drug: Former user and IVDA
Personal: Single
Living: with family
Employment: Not employed
Family History
Family History: Other (Noncontributory); Negative Early CAD
Review of Systems
Review of Systems
Allergies reviewed?: Yes
Unable to obtain full review of systems at this time due to: due to acuity
All Other Systems: Not applicable
Phy Exam
Physical Exam
Physical Exam:
Physical Exam
General: moderate respiratory distress, acutely ill. afebrile. thin appearing
Head: nc/at. eomi
Neck: supple. normal range of motion.
Heart: s1/s2 regular rate and rhythm, no murmur. equal radial pulses.
Lungs: moderate respiratory distress. diminished breath sounds bilaterally but with use of intercostal muscles.
Abdomen: normal bowel sounds. not tender.
Neuro: alert and oriented x 3. no focal neurological deficits
Skin: no rash
Psychiatric: well kept. interactive and cooperative
Extremities: LE b/l nonpitting edema. no calf tenderness.
Scores
Heart Failure Risk
Heart Failure Risk Score: Not Applicable
Course
Orders/Labs/Results
Orders:
Orders
03/03/24 08:48
Electrocardiogram (*1) Urgent
Reason for Study: Shortness of Breath
EKG- Treatment ONCE
03/03/24 08:50
CR Chest Portable - 1 View Urgent
Comment:
Reason For Exam: sob/cough
Reason Study Needs to be Portable: Patient Unstable
03/03/24 08:51
Urinalysis Reflex To Culture Urgent
03/03/24 08:54
COVID-19 Antigen Urgent
Source: Nasal Swab
Complete Blood Count/With Diff Urgent
Lactic Acid Q4H
Comment: CANCEL 2nd LACTIC ACID IF 1st LACTIC ACID IS LESS THAN 2
Influenza A+B Rapid Molecular Urgent
MAYRA Source: Nasal Swab
Specimen Description:
03/03/24 08:55
Comprehensive Metabolic Panel Urgent
Magnesium Urgent
NT-proBNP Urgent
Blood Culture Q30M
MAYRA Source: Blood/Venous
Specimen Description:
0.9% Sodium Chloride 500 ml [Nss] 500 ml IV BOLUS
Dexamethasone Sod Phosphate [Decadron] 6 mg IV NOW STA
Ipratropium/Albuterol Sulfate [Duoneb] 3 ml INH R NOW STA
03/03/24 08:57
Respiratory Syncytial Virus Urgent
MAYRA Source: Nasal Swab
Specimen Description:
Date Specimen was Collected: 03/03/24
Time Specimen was Collected: 08:56
03/03/24 09:00
Guaifenesin/Dextromethorphan [Robitussin Dm] 10 ml PO NOW STA
03/03/24 09:01
Guaifenesin/Codeine Solution [Robitussin AC] 10 ml PO NOW STA
03/03/24 09:02
Blood Culture Q30M
MAYRA Source: Blood/Venous
Specimen Description:
03/03/24 09:04
Arterial Blood Gas Urgent
%Oxygen/Room Air: 85
03/03/24 09:48
Type+Screen Urgent
03/03/24 Lunch
Regular
At Your Request: Full Participation
03/03/24 10:49
* Blood Bank Products Urgent
Blood Bank Products: *Packed RBC Leuko(PRBC's)
Quantity: 1
Transfuse Today: Yes
Reason: Anemia
IV Insert/Care/Rem.- Treatment PRN
03/03/24 11:05
CT Head W/o Iv Contrast Urgent
Comment:
Reason For Exam: trauma
03/03/24 11:27
Admit/Transfer Patient As Directed
Co-Sign Provider:
Level of Care: Observation services
Assign to:: Medical/Surgical
Physician / Group: hospitalist-Sarah
Diagnosis: end stage COPD, anemia
03/03/24 11:28
PRN Pain Medication Management As Directed
May give lesser potent ordered pain med per pt: Yes
preference::
Protocol:: Medication orders for pain may be administered in a
manner that supports deferring to patient preference
when the pt is:
- Requesting an ordered lesser potent pain medication.
Least to most potent pain medications are defined
as: acetaminophen < NSAID < tramadol < opioids
(morphine, oxycodone, hydromorphone).
- Requesting a lesser dose of the same medication IF
ORDERED.
- Requesting a less intrusive route of administration
if both routes are prescribed by the provider (PO <
IV).
03/03/24 11:33
Code Status As Directed
Resuscitation Status: Do not resuscitate
Reached after discussion with pt or family/Healthcare POA: Yes
DNR Bracelet Application ONCE
03/03/24 12:03
Acetaminophen [Tylenol] See Dose Instructions .ROUTE .STK-MED ONE
03/03/24 12:04
Acetaminophen [Tylenol/Feverall] 650 mg .ROUTE .STK-MED ONE
Acetaminophen [Tylenol/Feverall] 650 mg RECTAL NOW STA
03/03/24 17:28
Acetaminophen [Tylenol/Feverall] 650 mg RECTAL Q4HPRN PRN
Acetaminophen [Tylenol] 650 mg PO Q4HPRN PRN
Albuterol [ProAIR HFA INHALER] 2 puff INH R Q4HPRN PRN
Atropine Sulfate [Atropine Sulfate 1% Drops] 2 drop SL Q4HPRN PRN
Ipratropium/Albuterol Sulfate [Duoneb] 3 ml INH R Q4HPRN PRN
Ipratropium/Albuterol Sulfate [Duoneb] 3 ml INH R QID
Lorazepam [Ativan] 0.5 mg PO TID
Polyethylene Glycol Powder [Miralax] 17 grams PO DAILYPRN PRN
Simethicone [Mylicon] 80 mg PO TIDPRN PRN
03/03/24 17:28
Activity As Directed
Activity Level: Out of Bed-Early Mobility
Intake/ Output As Directed
Frequency: Per unit guidelines
Precautions As Directed
Type of Precautions: Novel Respiratory
Venous Foot Pumps As Directed
Location: Bilateral feet
Vital Signs As Directed
Frequency: Per unit guidelines
Weight As Directed
Frequency: Once
Comment: on admission
Rx Incentive Spirometry [RESP] Routine
Frequency: q1h while awake
DX Deep Vein Thrombosis Video Routine
03/03/24 17:50
Morphine Sulfate [Morphine Oral Solution] 1 mg PO Q2HPRN PRN
03/03/24 20:00
Budesonide [Pulmicort] 0.5 mg INH R BID
Morphine Sulfate [Morphine Oral Solution] 1 mg PO Q12
Nirmatrelvir/Ritonavir [Paxlovid 150-100 mg Dose Pack] 1 dose PO BID
03/03/24 22:00
Trazodone [Desyrel] 100 mg PO HS
03/04/24 08:00
Dexamethasone Sod Phosphate [Decadron] 6 mg IV DAILY
Diltiazem Extended Release [Cardizem Cd] 240 mg PO DAILY
Tiotropium [place] 2.5 Mcg [Spiriva Respimat 2.5 Mcg] 2 puff INH R DAILY
Abnormal Lab Results
03/03/24 03/03/24 03/03/24
08:54 08:55 09:04
RBC 2.86 L 10^6/uL
(4.20-5.40)
Hgb 5.7 L* g/dL
(12.0-16.0)
Hct 20.5 L* %
(37.0-47.0)
MCV 71.7 L fL
(81.0-99.0)
MCH 19.9 L pg
(27.0-31.0)
MCHC 27.8 L g/dL
(33.0-37.0)
RDW 16.7 H %
(11.5-14.5)
Plt Count 68 L 10^3/uL
(130-400)
Abs Immat Gran (auto) 0.1 H 10^3/uL
(0-0.05)
Absolute Neuts (auto) 9.3 H 10^3/uL
(1.4-6.5)
Absolute Lymphs (auto) 0.4 L 10^3/uL
(1.2-3.4)
Immature Gran % 1.0 H %
(0-0.5)
Neutrophils % 91.7 H %
(42.2-75.2)
Lymphocytes % 3.5 L %
(20.5-51.1)
pH 7.48 H
(7.35-7.45)
pCO2 38 H mmHg
(32-35)
pO2 58 L* mmHg
(83-108)
HCO3 28.3 H mmol/L
(21-28)
ABG O2 Sat (Measured) 93.5 L %
(94-98)
Sodium 134 L mmol/L
(135-145)
BUN 44 H mg/dl
(7-17)
Creatinine 1.6 H mg/dL
(0.6-1.0)
Glucose 114 H mg/dl
(70-99)
Calcium 8.3 L mg/dl
(8.4-10.2)
ALT 56 H U/L
(0-35)
Total Protein 5.9 L g/dl
(6.3-8.2)
Albumin 3.2 L g/dl
(3.5-5.0)
SARS-CoV-2 Antigen Positive A
(Negative)
Crossmatch IS Only
03/03/24
09:48
RBC
Hgb
Hct
MCV
MCH
MCHC
RDW
Plt Count
Abs Immat Gran (auto)
Absolute Neuts (auto)
Absolute Lymphs (auto)
Immature Gran %
Neutrophils %
Lymphocytes %
pH
pCO2
pO2
HCO3
ABG O2 Sat (Measured)
Sodium
BUN
Creatinine
Glucose
Calcium
ALT
Total Protein
Albumin
SARS-CoV-2 Antigen
Crossmatch IS Only See Detail
03/03/24 08:54
03/03/24 08:55
Vital Signs
Initial and Last Documented VS:
Initial Vital Signs
Temp Pulse Resp BP Pulse Ox
98.4 F 106 18 106/55 89
03/03/24 08:45 03/03/24 08:45 03/03/24 08:45 03/03/24 08:45 03/03/24 08:45
Last Documented Vital Signs
Temp Pulse Resp BP Pulse Ox
98.7 F 95 20 127/60 93
03/04/24 07:34 03/04/24 08:04 03/04/24 08:04 03/04/24 08:01 03/04/24 08:04
MDM/Problems Addressed
MDM/Problems Addressed:
Patient evaluated immediately upon arrival secondary to significant respiratory distress along with mental status change, as well as hypoxia.
History and exam consistent with COPD exacerbation, likely secondary to COVID-19, along with acute on chronic anemia.
Discussed at length with patient's daughter, who is power of patent attorney, regarding patient's condition. At this time, requests that patient to be treated conservatively, with medical management, without any invasive measures, i.e. chest
compressions/intubation. After acute treatment, daughter would like to speak with case management and reconsider hospice destination going forward.
Patient placed on mid flow oxygen for support, with improvement.
Blood transfusion consent on the chart.
Critical care statement: A total of 40 minutes of critical care time was provided for this patient. This includes management of unstable vital signs, evaluation of the patient at bedside, reviewing the patient's pertinent medical records, review of
old EKGs and review of pertinent medical records. This time with separate from time utilized to perform the aforementioned documented procedures
*Critical Care Note
Total Time (30-74mins, 75-104mins- exclusive of procedures): 40 min
ED Attending Note
-
Portions of this chart may have been created with voice recognition software.� Occasional wrong word or��sound alike� substitutions may have occurred due to the inherent limitations of voice recognition software.
Discharge Plan
Departure
Patient Disposition: Admit
Date of Disposition: 03/03/24
Time of Disposition: 10:49
Admit to: Med/Surg
Presentation/result/management discussed w/ accepting MD/DO: Hospitalist
Discharge Problem:
COPD exacerbation, Anemia, COVID-19
Interventions
Interventions:
*Risk Screen - Suicide Last Done: 03/03/24 17:46
*General Assessment Last Done: 03/03/24 08:45
*Neglect/Abuse Screening Last Done: 03/03/24 08:45
*ED COVID-19 Vaccine History Last Done: 03/03/24 08:49
*Nursing Disposition Last Done: 03/03/24 17:16
ED- Pulmonary Assessment Last Done: 03/03/24 08:49
ED- Cardiac Assessment Last Done: 03/03/24 08:49
Discharge Date and Time
Discharge Date/Time: 03/03/24 17:17
[2024-03-03 10:52] LABS: Anisocytosis 1+; Hypochromasia 2+; Microcytosis 2+; Normal RBC Morphology No; Ovalocytes 1+
--- NOTE | 2024-03-03 11:07 | HPS.HSE ---
Addendum entered and electronically signed by Jenni Smith MD 03/03/24 11:40:
MAYRA--creat 1.6--baseline 1.0--hold or renal dose meds
Original Note:
Family Physician
-
Family Physician: Sukumar Goss
Chief Complaint
-
fall, anemia
History of Present Illness
Pt is a 74 year old female who was admitted to the hospital on January 08, 2024 through January 15, 2024 and went to [facility] on hospice. Decision was made by the patient herself at that time. Patient has baseline chronic hypoxemic
respiratory failure on 3 L of oxygen along with chronic obstructive pulmonary disease, with chronic dysphagia, acute nonischemic myocardial injury, cirrhosis with portal hypertension, splenomegaly, portosystemic vascular collaterals, essential
hypertension who reportedly fell and struck her head. She was found to be anemic with a hemoglobin of 5.7 as well as COVID-positive. Patient is such that I do not believe that she can make informed medical decisions. Therefore, daughter who is
medical power of tenant coordinator is requesting blood transfusion, treatment for COVID, treatment for possible pneumonia, etc.
Medical History
Past Medical History
Past Medical History: Reports Other
Additional Past Medical History:
End-stage oxygen dependent chronic obstructive pulmonary disease
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
Portosystemic vascular collaterals
Essential hypertension
Chronic dysphagia
History of acute nonischemic myocardial injury
Gastroesophageal reflux disease
Anemia of chronic disease with pancytopenia
History of depression/anxiety
Chronic cachexia with likely severe protein calorie malnutrition
Past Surgical History: Reports Other
Additional Past Surgical History:
Perforated ulcer repair
Social History
Unable to obtain full social history at this time due to: Other (Obtained from previous records on the chart)
Tobacco: Former Smoker
Alcohol: Former
Living: [facility]
Family History
Family History: Not pertinent
Allergies / Home Medications
Allergies reflects when Allergies were last updated in [facility].
Home Medications with original date entered in [facility]
Allergy/Medication List:
Allergies
Allergy/AdvReac Type Severity Reaction Status Date / Time
No Known Allergies Allergy Verified 01/02/24 11:41
Home Medications
omeprazole 40 mg capsule,delayed release 40 mg PO DAILY Gastrointestinal Issue 01/22/23
budesonide 0.5 mg/2 mL suspension for nebulization 0.5 mg inhalation R BID Lung/Breathing Issues 12/12/23
trazodone 100 mg tablet 100 mg PO HS Mental Health/Anxiety 12/12/23
umeclidinium 62.5 mcg-vilanterol 25 mcg/actuation powdr for inhalation (Anoro Ellipta) 1 inh inhalation R DAILY Lung/Breathing Issues 12/12/23
simethicone 80 mg chewable tablet 80 mg PO TIDPRN PRN gas/bloating 90 days #90 tabs 12/30/23
valsartan 320 mg tablet 320 mg PO DAILY Blood pressure #90 tabs 12/30/23
acetaminophen 325 mg tablet 650 mg (2 x 325 mg) PO Q4HPRN PRN temp > 101 F #0 tabs 01/14/24
diltiazem HCl 240 mg capsule,extended release 24 hr 240 mg PO DAILY #0 caps 01/14/24
ipratropium 0.5 mg-albuterol 3 mg (2.5 mg base)/3 mL nebulization soln 3 ml inhalation R Q4HPRN PRN shortness of breath #0 mL 01/14/24
ipratropium 0.5 mg-albuterol 3 mg (2.5 mg base)/3 mL nebulization soln 3 ml inhalation R QID #0 mL 01/14/24
polyethylene glycol 3350 17 gram oral powder packet 17 g PO DAILYPRN PRN constipation #0 ea 01/14/24
prednisone 20 mg tablet 40 mg (2 x 20 mg) PO DAILY #0 tabs 01/14/24
atropine 1 % eye drops 2 drp buccal Q4HPRN PRN INCREASED SECRETIONS 03/03/24
furosemide 20 mg tablet (Lasix) 20 mg PO DAILY 03/03/24
lorazepam 0.5 mg tablet 0.5 mg PO TID 03/03/24
morphine 20 mg/5 mL (4 mg/mL) oral solution 1 mg PO Q12H 03/03/24
morphine 20 mg/5 mL (4 mg/mL) oral solution 1 mg PO Q2HPRN PRN SOB 03/03/24
spironolactone 50 mg tablet 50 mg PO DAILY 03/03/24
Review of Systems
-
Unable to obtain full review of systems at this time due to: Acuity
Physical Exam
Vital Signs
Vital Signs
Temp Pulse Resp BP Pulse Ox
98.4 F 110 18 100/57 91
03/03/24 08:45 03/03/24 09:15 03/03/24 10:32 03/03/24 09:00 03/03/24 09:15
Physical Exam
General: Appears Chronically Ill and Cachectic
HEENT: NormoCephalic, Atraumatic and Oxygen (12 L mid flow)
Respiratory: Decreased Breath Sounds (Poor inspiratory effort)
Cardiac: S1/S2 and Regular Rhythm; No Murmur
GI: Soft, Non Tender, Non Distended and Normal Bowel Sounds
Musculoskeletal: No Clubbing, No Cyanosis and No Edema
Neuro: Awake; No Alert
Psych: Calm; No Intact Judgment/Insight
Laboratory Results
-
03/03/24 08:54
03/03/24 08:55
Laboratory Results
pH 7.48 (7.35-7.45) H 03/03/24 09:04
pCO2 38 mmHg (32-35) H 03/03/24 09:04
pO2 58 mmHg (83-108) L* 03/03/24 09:04
HCO3 28.3 mmol/L (21-28) H 03/03/24 09:04
Lactic Acid 1.9 mmol/L (0.7-2.0) 03/03/24 08:54
Total Bilirubin 1.1 mg/dl (0.2-1.3) 03/03/24 08:55
AST 36 U/L (14-36) 03/03/24 08:55
ALT 56 U/L (0-35) H 03/03/24 08:55
Alkaline Phosphatase 55 U/L (38-126) 03/03/24 08:55
Impression/Plan
-
Patient is a 74-year-old female
I discharged the patient to [facility] with hospice at patient request on January 15, 2024. Patient has been on hospice with [facility] up until today and it is still uncertain whether or not she is currently on hospice or whether this has
been revoked. Apparently it will be revoked as soon as admission order goes in. Patient, in my opinion, cannot make any medical decisions at this point. I am being told that the daughter has medical power of tenant coordinator but no forms have been
provided to verify this.
Acute exacerbation of oxygen dependent end-stage chronic obstructive pulmonary disease exacerbated by COVID positivity--patient currently on 12 L of oxygen, will start treatment for COVID with Paxlovid if patient is able to take oral medications--IV
Decadron will be given--chest x-ray shows small patchy right basilar opacity cannot rule out pneumonia--RSV and influenza negative--patient clearly in my opinion cannot make any medical decisions at this point
Worsening chronic anemia--no active blood loss--family requesting blood transfusion--consent has been obtained through the ED physician and 1 unit of blood being ordered
[facility]--[facility] and [facility]--will check head CT for completeness
Other chronic medical issues include:
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
Portosystemic vascular collaterals
Essential hypertension
Chronic dysphagia
History of acute nonischemic myocardial injury
Gastroesophageal reflux disease
Anemia of chronic disease with pancytopenia
History of depression/anxiety
Chronic cachexia with likely severe protein calorie malnutrition
DVT proph
Code status--DNR/DNI--should return back to the facility with resumption of hospice is soon as possible
--- NOTE | 2024-03-03 11:27 | CM ---
Patient seen at bedside. Patient here with COVID from [facility] where she is a LTC hospice resident on [facility] per Aramis [phone]/ main number for hospitce is [phone]. Patient daughter Zoe now telling staff at [facility] and
that she has POA, requested copy of document for son Eleno who is the oldest child involved with patient care at this time, and that they want treatments for anemia and covid but not changing DNR status. Patient s/p fall at SNF this morning.
Facility states that patient is MA pending at this time. CM updated patient son about situation. Patient hypoxic per physician and pending transfusion of blood. CM will continue to follow for discharge planning needs.
Plan; SNF with hospice [facility] pending functional status assessments.
[2024-03-03] MEDS: TYLENOL/FEVERALL 650 MG RECTAL (12:05)
--- NOTE | 2024-03-03 17:59 | PTCARENOTE ---
Patient admitted from ED to 2N. Patient 99% on 4L. Bp 134/65. Patient AAOx3, oriented to floor. Call castellano within reach.
[2024-03-03] MEDS: ATIVAN PO (18:09)
[2024-03-03] MEDS: NSS (PRESERVATIVE FREE) 10 ML IV (18:25)
[2024-03-03] MEDS: PROTONIX IV 40 MG IV (18:25)
[2024-03-03] MEDS: ProAIR HFA INHALER 2 PUFF INH (20:15)
[2024-03-03] MEDS: PAXLOVID 150-100 MG DOSE PACK 1 DOSE PO (21:52)
[2024-03-03] MEDS: ATIVAN 0.5 MG PO (21:54)
[2024-03-03] MEDS: MORPHINE ORAL SOLUTION PO (23:11)
[2024-03-04 00:22] VITALS: BP 99/42
--- NOTE | 2024-03-04 01:00 | PTCARENOTE ---
blood transfusion completed. vss. no reaction noted.
[2024-03-04 07:34] VITALS: BP 127/60
[2024-03-04] MEDS: SPIRIVA RESPIMAT 2.5 MCG 2 PUFF INH (07:57)
[2024-03-04] MEDS: STRIVERDI RESPIMAT 2 PUFF INH (07:57)
[2024-03-04] MEDS: CARDIZEM CD 240 MG PO (08:01)
[2024-03-04] MEDS: MORPHINE ORAL SOLUTION 1 MG PO ×4 (08:01→20:11)
[2024-03-04] MEDS: ATIVAN 0.5 MG PO ×3 (08:01→21:59)
[2024-03-04] MEDS: DECADRON 6 MG IV (08:03)
[2024-03-04] MEDS: PROTONIX IV 40 MG IV (08:05)
[2024-03-04] MEDS: PAXLOVID 150-100 MG DOSE PACK 1 DOSE PO ×2 (08:05→20:12)
[2024-03-04] MEDS: ProAIR HFA INHALER 2 PUFF INH ×2 (08:05→20:46)
[2024-03-04] MEDS: NSS (PRESERVATIVE FREE) 10 ML IV (08:05)
--- NOTE | 2024-03-04 09:25 | CM ---
Spoke with son Eleno - states that his sister Zoe is POA and will give POA paperwork to hospital
CM consult complete-Patient on [facility] per Aramis from [facility] it was revoked when she came to hospital- will accept-ref[facility]
--- NOTE | 2024-03-04 10:40 | W.PN.HOSP.TC ---
Today's Communication/Plan
-
d/c back to hospice
Assessment / Plan
Assessment / Plan
Gen: Appears mildly short of breath, AAOx3, appears chronically ill malnourished, cachectic.
Eyes: EOMI, PERRLA, no scleral icterus.
Neck: supple.
CV: RRR, +S1/S2, no m/r/g.
Resp: Bilateral rhonchi.
Abd: +BS, soft, left-sided tenderness to palpation, ND
Skin: No rashes.
Neuro: CN 2-12 intact, non-focal.
Psych: Normal mood and affect.
CT Brain: No acute intracranial abnormality.
CXR: Cannot exclude some small patchy right basilar opacity such as pneumonia.
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
-was on 12L midflow, now weaned to 4L midflow
-currently on Paxlovid
-Patient currently is awake alert and oriented x 3 and states she wants to return to her facility on hospice.
Worsening chronic anemia:
-no active blood loss
-family requested blood transfusion, now s/p 2U pRBCs
[facility] at [facility] and [facility], CT brain unremarkable as above
Other chronic medical issues include:
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
Portosystemic vascular collaterals
Essential hypertension
Chronic dysphagia
History of acute nonischemic myocardial injury
Gastroesophageal reflux disease
Anemia of chronic disease with pancytopenia
History of depression/anxiety
Chronic cachexia with likely severe protein calorie malnutrition
DNR/DNI
Medically cleared for d/c back to hospice.
Anticipated Discharge: Today
Subjective/Interval History
-
Date of Service: March 04, 2024
Patient reports shortness of breath.
Objective Data
-
Labs:
Laboratory Results
03/04/24
10:39
WBC Pending
Hgb Pending
Hct Pending
Plt Count Pending
Sodium Pending
Potassium Pending
Chloride Pending
Carbon Dioxide Pending
BUN Pending
Creatinine Pending
Glucose Pending
Calcium Pending
Vital Signs:
Vital Signs
Temp Pulse Resp BP Pulse Ox
98.7 F 95 20 127/60 93
03/04/24 07:34 03/04/24 08:04 03/04/24 08:04 03/04/24 08:01 03/04/24 08:04
I&O
03/03/24 03/04/24 03/05/24
06:59 06:59 06:59
Intake Total 1100 / 1100
Balance 1100 / 1100
[2024-03-04 11:48] LABS: Hematocrit 28.1 % (37.0-47.0); Hemoglobin 8.6 g/dL (12.0-16.0); Mean Corp Hgb Conc. 30.6 g/dL (33.0-37.0); Mean Corpuscular Hgb 22.7 pg (27.0-31.0); Mean Corpuscular Volume 74.1 fL (81.0-99.0); Platelet Count 53 10^3/uL (130-400); Red Blood Cell Count 3.79 10^6/uL (4.20-5.40); Red Cell Dist. Width 16.3 % (11.5-14.5); White Blood Cell Count 9.7 10^3/uL (4.8-10.8)
[2024-03-04 12:15] LABS: Blood Urea Nitrogen 49 mg/dl (7-17); Calcium 7.8 mg/dl (8.4-10.2); Carbon Dioxide 23 mmol/L (22-30); Chloride 98 mmol/L (98-107); Estimated Creatinine Clearance 23 ml/min; Glucose 421 mg/dl (70-99); Sodium 133 mmol/L (135-145); eGFR 36.57
[2024-03-04 15:14] VITALS: BP 131/60
--- NOTE | 2024-03-04 16:26 | CM ---
Spoke with patients mayte Enriquez outside of patient room.
Zoe was asking how to get POA forms signed.
CM explained at this time forms could not be completed as per MD documentation that patient could not make decisions at this time.
Discussed with Patient Advocate and psychiatry consult will be ordered re capacity.
Daughter also made aware that the hospital does not have a notary and staff cannot witness POA signing.
Will discuss with [facility] if they can assist with with POA forms if patient is found to have capacity.
Daughter aware patient is MA pending and [facility] is willing to accept patient back as MA pending.
If patient is still interested in a different facility, [facility] will assist with transfer once an alternate facility is found.
[facility] will accept back with [facility].
Patient to return on [facility].
Nelli/liaison from [facility] updated.
[2024-03-04 21:04] LABS: Glucose - Point of Care 210 mg/dl (70-99)
[2024-03-04 23:10] VITALS: BP 116/61
[2024-03-04 23:51] VITALS: BP 116/61
[2024-03-05] MEDS: TYLENOL 650 MG PO ×2 (04:34→12:43)
[2024-03-05] MEDS: ROBITUSSIN 200 MG PO (04:34)
[2024-03-05] MEDS: ProAIR HFA INHALER 2 PUFF INH ×2 (04:43→07:23)
[2024-03-05 05:37] LABS: Urine Albumin Trace (Neg - Trace); Urine Bilirubin Negative (Negative); Urine Character Clear (Clear); Urine Color Yellow; Urine Glucose Negative (Negative); Urine Ketone Negative (Negative); Urine Leukocyte Trace (Negative); Urine Nitrite Negative (Negative); Urine Occult Blood Negative (Negative); Urine Specific Gravity 1.015 (<1.030); Urine Urobilinogen 1+ (Neg - 1+)
[2024-03-05 06:40] LABS: Hematocrit 28.5 % (37.0-47.0); Hemoglobin 8.7 g/dL (12.0-16.0); Mean Corp Hgb Conc. 30.5 g/dL (33.0-37.0); Mean Corpuscular Hgb 22.5 pg (27.0-31.0); Mean Corpuscular Volume 73.8 fL (81.0-99.0); Platelet Count 51 10^3/uL (130-400); Red Blood Cell Count 3.86 10^6/uL (4.20-5.40); Red Cell Dist. Width 16.7 % (11.5-14.5); White Blood Cell Count 7.2 10^3/uL (4.8-10.8)
[2024-03-05 06:47] LABS: Blood Urea Nitrogen 52 mg/dl (7-17); Calcium 8.2 mg/dl (8.4-10.2); Carbon Dioxide 26 mmol/L (22-30); Chloride 101 mmol/L (98-107); Estimated Creatinine Clearance 24 ml/min; Glucose 151 mg/dl (70-99); Potassium 4.4 mmol/L (3.5-5.1); Sodium 136 mmol/L (135-145); eGFR 39.73
[2024-03-05 07:04] LABS: Urine Amorphous Seen; Urine Squamous Cell >30 /LPF (Few)
[2024-03-05 07:05] LABS: Urine Bacteria Moderate (Negative); Urine White Cell 16-20 /HPF (0-5)
[2024-03-05 07:06] LABS: Urine Granular Cast 0-2 /LPF (0); Urine Red Blood Cell 0-2 /HPF (0-2)
[2024-03-05] MEDS: STRIVERDI RESPIMAT 2 PUFF INH (07:23)
[2024-03-05] MEDS: SPIRIVA RESPIMAT 2.5 MCG 2 PUFF INH (07:23)
[2024-03-05 07:40] VITALS: BP 131/65
--- NOTE | 2024-03-05 08:20 | W.PN.HOSP.TC ---
Addendum entered and electronically signed by Camilo Cortez MD 03/06/24 14:36:
moderate protein calorie malnutrition
Acute hypoxemic respiratory failure
Addendum entered and electronically signed by Camilo Cortez MD 03/05/24 15:36:
Total time spent on d/c = 37 min. This included today's physical exam, progress note, review of laboratory and diagnostic data, preparation of discharge documents and prescriptions, and discussions about the pt's hospital course and discharge plan
with the patient and other medical transcription editor involved in the patient's care.
Original Note:
Today's Communication/Plan
-
see bold
Assessment / Plan
Assessment / Plan
Gen: remains mildly short of breath, AAOx3, appears chronically ill malnourished, cachectic.
Eyes: EOMI, PERRLA, no scleral icterus.
Neck: supple.
CV: remains RRR, +S1/S2, no m/r/g.
Resp: distant BS B/L, no rales, wheezes, or rhonchi
Abd: +BS, soft, left-sided tenderness to palpation, ND
Skin: No rashes.
Neuro: CN 2-12 intact, non-focal.
Psych: Normal mood and affect.
CT Brain: No acute intracranial abnormality.
CXR: Cannot exclude some small patchy right basilar opacity such as pneumonia.
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
-was on 12L midflow, now weaned to 4L midflow
-currently on Paxlovid/Decadron
-cont Striverdi/Spiriva/pulmicort
-was on hospice [facility]
-On today's interview the patient does have decision-making capacity. She is awake alert and orient x 3. She understands why she is in the hospital. She understands that her hospice diagnosis was due to end-stage COPD. She is requesting to
return to hospice but states she may want to use a different hospice agency.
-Case discussed with Dr. Rangel who is about to see the pt in consult
Worsening chronic anemia:
-no active blood loss
-family requested blood transfusion, now s/p 2U pRBCs
Fall, reportedly at custodial and struck head, CT brain unremarkable as above
Other chronic medical issues include:
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
Portosystemic vascular collaterals
Essential hypertension
Chronic dysphagia
History of acute nonischemic myocardial injury
Gastroesophageal reflux disease
Anemia of chronic disease with pancytopenia
History of depression/anxiety
Chronic cachexia with likely severe protein calorie malnutrition
Hyponatremia, resolved
DNR/DNI
Remains medically cleared for d/c back to hospice since 03/04/24AM. Case management aware.
Total time spent on today's encounter was 50 minutes which included time spent in counseling the patient/family regarding diagnosis and treatment plan as listed above, goals of care, and symptom management. Case was discussed with nursing staff,
specialists, and care coordinators/case management. All labs and imaging personally reviewed by me. Remainder the time spent in detailed review of previous records, lab data, imaging, and other medical provider documentation.
Anticipated Discharge: Today
Subjective/Interval History
-
Date of Service: March 05, 2024
Patient reports shortness of breath.
Objective Data
-
Labs:
Laboratory Results
03/05/24
06:03
WBC 7.2
Hgb 8.7 L
Hct 28.5 L
Plt Count 51 L
Sodium 136
Potassium 4.4
Chloride 101
Carbon Dioxide 26
BUN 52 H
Creatinine 1.4 H
Glucose 151 H
Calcium 8.2 L
Vital Signs:
Vital Signs
Temp Pulse Resp BP Pulse Ox
97.9 F 94 18 131/65 96
03/05/24 07:40 03/05/24 07:40 03/05/24 07:40 03/05/24 07:40 03/05/24 07:40
I&O
03/04/24 03/05/24 03/06/24
06:59 06:59 06:59
Intake Total 1100 / 1100 600 / 600
Output Total 450 / 450
Balance 1100 / 1100 150 / 150
[2024-03-05] MEDS: ATIVAN 0.5 MG PO ×2 (09:17→16:03)
[2024-03-05] MEDS: CARDIZEM CD 240 MG PO (09:17)
[2024-03-05] MEDS: DECADRON 6 MG IV (09:18)
[2024-03-05] MEDS: MORPHINE ORAL SOLUTION 1 MG PO ×2 (09:18→16:27)
[2024-03-05] MEDS: NSS (PRESERVATIVE FREE) 10 ML IV (09:19)
[2024-03-05] MEDS: PROTONIX IV 40 MG IV (09:20)
[2024-03-05] MEDS: PAXLOVID 150-100 MG DOSE PACK 1 DOSE PO (09:35)
[2024-03-05 10:15] VITALS: BMI 17.4
--- NOTE | 2024-03-05 12:13 | CON.MD ---
Consultation - Medical
-
patient seen chart reviewed. discussed with nursing, dr godoy, ms ventura and mr kasper. this consult ordered for capacity . the patient is a 74 year old woman admitted to from [facility] for coughing sob decreased appetite. she was found to have
covid and is in signficant respiratory distress. she has o2 dependent copd and was in hospice from which she was removed to come to for rx. hgb found to be 5.7 and she has been transfused. the patient wished for her d to be made her poa and
there was some ? as to whether she had the mental capacity to make this decision. the patient today was fully oriented. she was aware of her medical issues including the fact that she had been on hospice and was removed from hospice. she has a good
relationship with her son and d who live locally. she trusts her d to make reasonable decisions on her behalf if she is unable to do so and said that generally she talks with her d and son who are local and discusses how to proceed with her rx. she
is feeling better since admit thought understand that she is clearly still in need of treatment. she does have hx of depression and anxiety and as treated with antidepressants years ago. she cannot recall which and is currently taking ativan o.5 mg
tid and trazodone 100 mg for sleep. she made suicide attempts about 25 years ago and was hospitalized but none in more recent years. she is depressed to a degree at this point but mainly bc she feels so physically ill. sleep ok w trazodone
appetite not great but improving. she can enjoy seeing her kids. she said in the past she has thought 'a man ' was sleeping on her couch and talking to her, but this sx is not present currently. she could not tell me exactly when this occurred.
her demeanor today was certainly not psychotic or delirious. there was note of 'memory issues' in the chart. memory not formally tested but likely mci related in part to medical condition.
past psych hx see above
medical hx patient w o2 dep copd. covid infection. qtc prolonged 503 patient w hx anemia see above htn cirrhosis gerd pud esophageal varices uti in the past. cr 1.6 baseline is 1.0 cad hep c cachexia cat brain no acute changes
substance abuse etoh in the past not x years
fh non contributory
social patient is resides at [place] has five kids two who are close to her and live locally 13 grandkids. she sees some them but many live in other states
mse alert ox3 cooperative frail thin tachypneic woman. speech breathing issue not with standing normal in rate tone thought process goal oriented. no current psychosis affect ok mood is anxious no si aver intelligence insight judgment seem
adequate. patient may have mci but she is able to speak reasonably and relevantly about her condition
unspecified anxiety h/o depression
recommendations in my opinion patient has capacity to make medical decisions and to choose a poa. she has reasonable knowledge of her condition and issues involved and seems to have a good relationship from what she tells me with her two local
children. maybe some mci but this is not the timei to test given physical illness. i would guess her c/o re hallucinations see above occurred when she was more acutely medically ill and in a delirium. these are not present currently. i could see
no psychosis today. psych will sign off.
--- NOTE | 2024-03-05 14:59 | CM ---
Reviewed the chart notes and spoke with the patient's son via telephone. IMM reviewed. Patient ready for discharge back to [facility] today. Patient's son confirmed [facility] is the hospice [facility] choice, referral previously sent via Care Port.
CM continues to be available to patient/family and is monitoring medical plan for needs at discharge.
Plan: Discharge back to [facility] on [facility] services.
Call report to: [phone]
Fax report to: [phone]
Medical necessity and transport forms on chart.
[facility] fax: [phone]
[2024-03-05 15:15] VITALS: BP 117/59
--- NOTE | 2024-03-05 15:36 | W.DCSUMMARY ---
Discharge Summary
Discharge Data
Date of Admission: 03/03/24
Date of Discharge: 03/05/24
-
Pending Results: No
Hospital Course
Primary diagnoses:
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
Acute on chronic anemia of chronic disease
Acute kidney injury
Fall
Secondary diagnoses:
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
Portosystemic vascular collaterals
Essential hypertension
Chronic dysphagia
History of acute nonischemic myocardial injury
Gastroesophageal reflux disease
Anemia of chronic disease with pancytopenia
Depression
Anxiety
Chronic cachexia with likely severe protein calorie malnutrition
Hyponatremia
Consultants:
None
Imaging:
CT Brain: No acute intracranial abnormality.
CXR: Cannot exclude some small patchy right basilar opacity such as pneumonia.
Hospital course: 74-year-old female who was on hospice who presented with a fall and was found to be anemic as outlined in the H&P done on admission. Patient was found to be COVID-positive. She was initially on 12 L mid flow and weaned to 4 L mid
flow. She was given Paxlovid and Decadron. She received 2 units packed red blood cells. The patient is being discharged back to hospice at this time.
Discharge Plan
-
Patient Disposition: Home with Hospice
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
Condition: Fair
Diet: Regular
Activity: With assistance
Driving Restrictions: No driving
Other Services: Hospice
Referrals:
Sukumar Goss MD [Family Provider] - in less than 1 week
Prescriptions:
Continued
omeprazole 40 mg Capsule,Delayed Release(Dr/Ec)
40 mg PO DAILY
trazodone 100 mg tablet
100 mg PO HS
budesonide 0.5 mg/2 mL suspension for nebulization
0.5 mg inhalation R BID
Anoro Ellipta 62.5-25 mcg/actuation blister with device
1 inh INHALATION R DAILY
simethicone 80 mg Tablet,Chewable
80 mg PO TIDPRN PRN (Reason: gas/bloating) 90 Days Qty: 90 0RF
acetaminophen 325 mg Tablet
650 mg PO Q4HPRN PRN (Reason: temp > 101 F) Qty: 0 0RF
ipratropium-albuterol 0.5 mg-3 mg(2.5 mg base)/3 mL Solution For Nebulization
3 ml inhalation R QID Qty: 0 0RF
ipratropium-albuterol 0.5 mg-3 mg(2.5 mg base)/3 mL Solution For Nebulization
3 ml inhalation R Q4HPRN PRN (Reason: shortness of breath) Qty: 0 0RF
diltiazem HCl 240 mg Capsule,Extended Release 24hr
240 mg PO DAILY Qty: 0 0RF
polyethylene glycol 3350 17 gram Powder In Packet
17 g PO DAILYPRN PRN (Reason: constipation) Qty: 0 0RF
prednisone 20 mg Tablet
40 mg PO DAILY Qty: 0 0RF
lorazepam 0.5 mg Tablet
0.5 mg PO TID
morphine 20 mg/5 mL (4 mg/mL) Solution
1 mg PO Q12H
morphine 20 mg/5 mL (4 mg/mL) Solution
1 mg PO Q2HPRN PRN (Reason: SOB)
atropine 1 % Drops
2 drp BUCCAL Q4HPRN PRN (Reason: INCREASED SECRETIONS)
Discontinued
valsartan 320 mg tablet
320 mg PO DAILY Qty: 90 2RF
furosemide [Lasix] 20 mg Tablet
20 mg PO DAILY
spironolactone 50 mg Tablet
50 mg PO DAILY
Discharge Orders:
Discharge Patient (As Directed); Ordered 03/05/24
Ordered By: Camilo Cortez
Discharge Date and Time
Print Language: DANISH
--- NOTE | 2024-03-05 16:40 | PN.CDI ---
CDI
- -
CDI:
Physician Documentation Request
Admit Date: 03/04/24 10:39
Dear Doctor Diego,
RD notes and assessment state ' Due to observation with NFPE (nutrition-focused physical exam), pt meeting criteria for moderate protein calorie malnutrition (ASPEN/AND guidelines, chronic illness.) RD able to observe some moderate depression at
temples, orbital, clavicle, moderate calves'
Hospitalist progress note states 'Chronic cachexia with likely severe protein calorie malnutrition'
Based on the above information and your assessment, which of the following most accurately represents the patient's nutritional status?
Severe Malnutrition is a clinical diagnosis based on (please include this additional support in the medical record)
Moderate malnutrition
Other (please specify)
Tilly Criteria ([facility] Hospitalist 2017)
2 or more criteria must be present for either
non severe or severe malnutrition
Note that the criteria differs related to the
presence of an acute or chronic illness
Acute Illness Chronic Illness
Energy Intake Non Severe: <75% for >7 days Non Severe: <75% for >1 month
Severe: <50% for >5 days Severe: <75% for >1 month
Weight Loss Non Severe: 1-2% over 1 week Non Severe: 5% over 1 month
5% over 1 month 7.5% over 3 months
7.5% over 3 months 10% over 6 months
1 year N/A 20% over 1 year
Severe: >2% over 1 week Severe: >5% over 1 month
>5% over 1 month >7.5% over 3 months
>7.5% over 3 months >10% over 6 months
1 year N/A >20% over 1 year
Body Fat Non Severe: Mild Decrease Non Severe: Mild Loss
Severe: Moderate Decrease Severe: Severe Loss
Muscle Mass Non Severe: Mild Decrease Non Severe: Mild Loss
Severe: Moderate Decrease Severe: Severe Loss
Fluid Accumulation Non Severe: Mild Accumulation Non Severe: Mild Accumulation
Severe: Moderate to severe Severe: Moderate to severe
accumulation accumulation
Reduced Integrated Campaign Manager Strength Non Severe: N/A Non Severe: N/A
Severe: Measurably reduced Severe: Measurably reduced
Use of terms such as suspected, likely, concern for, or probable (associated with a specific diagnosis that is being evaluated, monitored, or treated as if it exists) are acceptable and can be coded in the inpatient setting, when documented at the
time of discharge.
Thank you,
Corina RAINEYN
CDI Specialist
tiger text
Please use your independent medical judgment in providing your response.
--- NOTE | 2024-03-05 16:52 | PN.CDI ---
CDI
- -
CDI:
Physician Documentation Request
Admit Date: 03/04/24 10:39
Dear Doctor Diego,
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
Clarify which of the following accurately represents the patient's respiratory status:
Acute on chronic respiratory failure - please indicate type
Hypoxia
Other
Additional information for Respiratory Failure:
Recognized criteria for Respiratory Failure (Source: [facility] Hospitalist Dec 2012)
ABGs: (1 or more) Symptoms Please indicate type if known
1. pO2 <60 or RA SPO2 <91% on RA 1. Tachypnea, SOB, dyspnea Hypoxic
2. pCO2 50 and pH <7.35 2. Use of accessory muscles Hypercapnic
3. pO2 decrease of pCO2 increase by 3. Pallor or cyanosis Hypoxic and Hypercapnic
10 mmHg from baseline if known 4. Anxiety or restlessness Unable to determine
5. Unable to speak in full sentences
Supplemental O2 of > 40% (5LPM) Intubation is not required
Use of terms such as suspected, likely, concern for, or probable (associated with a specific diagnosis that is being evaluated, monitored, or treated as if it exists) are acceptable and can be coded in the inpatient setting, when documented at the
time of discharge.
Thank you,
Corina Ervin RN, BSN
CDI Specialist
tiger text
Please use your independent medical judgment in providing your response.
== END 2024-03-05 19:43 | disposition hospice, home (50) | DRG 177 ==
LOC: 2 NORTH 10:39
PROVIDERS: ADMITTING PHYSICIAN Internal Medicine; ATTENDING PHYSICIAN Internal Medicine; CONSULT PHYSICIAN Psychiatry & Neurology Psychiatry; EMERGENCY PHYSICIAN Emergency Medicine; FAMILY PHYSICIAN Internal Medicine
PROC: 30233N1 Transfusion of Nonautologous Red Blood Cells into Peripheral Vein, Percutaneous Approach (ICD-10-PCS; 2024-03-03)
DX: U07.1 COVID-19 (principal); J96.01 Acute respiratory failure with hypoxia; J44.1 Chronic obstructive pulmonary disease with (acute) exacerbation; D61.818 Other pancytopenia; I85.10 Secondary esophageal varices without bleeding; K76.6 Portal hypertension; Z68.1 Body mass index [BMI] 19.9 or less, adult; Z66 Do not resuscitate; R64 Cachexia; E44.0 Moderate protein-calorie malnutrition; E87.1 Hypo-osmolality and hyponatremia; N17.9 Acute kidney failure, unspecified; J44.0 Chronic obstructive pulmonary disease with (acute) lower respiratory infection; I10 Essential (primary) hypertension; D63.8 Anemia in other chronic diseases classified elsewhere; K74.60 Unspecified cirrhosis of liver; B18.2 Chronic viral hepatitis C; F32.A Depression, unspecified; F41.9 Anxiety disorder, unspecified; K21.9 Gastro-esophageal reflux disease without esophagitis; Z99.81 Dependence on supplemental oxygen; Z87.891 Personal history of nicotine dependence; Z79.899 Other long term (current) drug therapy
CPT/HCPCS: 36430; 70450; 71045; 80048; 80053; 81003; 81015; 82805; 82962; 83605; 83735; 83880; 85025; 85027; 86850; 86900; 86901; 86920; 87040; 87086; 87502; 87807; 87811; 93005; 94640; 96361; 96374; 99291; P9016

== ENCOUNTER 2024-03-07 12:44 | Inpatient (IN) | payer MEDICARE, OTHER, SELFPAY ==
[2024-03-07] VITALS (18 sets, daily range): BP systolic 86–156; BP diastolic 52–75
--- NOTE | 2024-03-07 07:31 | ED.GENMED ---
Addendum entered and electronically signed by Khoi Velazquez MD 03/07/24 10:09:
Patient unable to be transferred back to [facility], secondary to high oxygen requirement. As such, patient evaluated by case management in ED. Decision made to admit patient to hospitalist service with consultation to [facility].
Original Note:
History of Present Illness
General
Chief Complaint: Fall
Source: previous hospital records (Recent hospitalization March 03 to March 05 for acute exacerbation of oxygen dependent end-stage COPD exacerbated by acute COVID infection.)
Exam Limitations: clinical condition
Time Seen by Provider: 03/07/24 04:20
Nursing documentation reviewed up to this point in time: agreed with
History of Present Illness
History of Present Illness:
This is a 74-year-old woman, resident of a local senior living with history of end-stage COPD, chronically O2 dependent who had been receiving hospice care at the senior living until she suffered a fall, was evaluated in this ED and admitted for 2
days for treatment of acute on chronic O2 dependent COPD exacerbated by acute COVID infection. She was also found to be moderately anemic, received 2 units of packed red blood cells. Acute kidney injury, received IV fluids.
She remains significantly debilitated with multiple end-stage medical conditions and was discharged back to the senior living on Friday, 2 days ago with plan to reinstitute hospice.
Unfortunately, hospice was not notified and has not been reinstituted. The patient does remain a DNR status and early this morning her roommate noted that patient rolled out of bed. Oxygen became dislodged, roommate notified senior living staff and
she is brought to the ED via EMS. Pulse ox initially in the 50s on room air, she arrives with 100% nonrebreather mask in place.
She is noted to have a small contusion left brow. She is obtunded.
snf records note DNR status.
ED nurse has contacted the son via telephone, the son does verify that patient is DNR status and verifies that plan was to reinitiate hospice upon return to the senior living on Friday.
He is en route to the hospital.
Past History
Past History
ED Past Medical History: COPD, GERD, HTN, Psychiatric (Depression, insomnia) and Other (Gastritis/ulcer, PNA, Cirrhosis of the liver, GI bleeding. Hemorrhoids. Hep C, Ulcers, Esopohageal varices. UTI, Anemia, )
ED Past Surgical History: Other
Social History
Tobacco: Former smoker
Alcohol: Occasional
Drug: Former user and IVDA
Personal: Single
Living: senior living
Employment: Not employed
Family History
Family History: Other (Noncontributory); Negative Early CAD
Phy Exam
Physical Exam
Physical Exam:
GENERAL: 74-year-old woman appears older than stated age, frail, appears chronically debilitated, obtunded.
EYE: pupils equal and reactive. There is a small soft tissue contusion left lateral brow with small abrasion. No bleeding.
NECK: Supple, no appreciable tenderness. No step off deformity.
ENT: Oral mucosa is dry. No rhinorrhea. No epistaxis. TMs are clear bilaterally. Nonrebreather mask in place.
CARDIAC: Regular rhythm, mildly tachycardic. no murmur.
LUNGS: Minimally labored respirations, irregular respirations without apnea. Moderately decreased breath sounds throughout. No palpable chest wall tenderness nor crepitus.
ABDOMEN: Soft, nondistended, without focal tenderness
NEUROLOGICAL: Obtunded, withdraws to painful stimuli.
SKIN: Warm and dry, normal color, poor turgor.
MUSCULOSKELETAL: No C/C/E. peripheral pulses are full and equal b/l. No appreciable tenderness.
PSYCH: Obtunded. Appears comfortable.
Course
Vital Signs
Initial and Last Documented VS:
Initial Vital Signs
BP Pulse Ox
156/75 94
03/07/24 04:10 03/07/24 04:10
Last Documented Vital Signs
Temp Pulse Resp BP Pulse Ox
98.2 F 99 14 124/63 93
03/07/24 04:11 03/07/24 06:45 03/07/24 06:45 03/07/24 06:00 03/07/24 06:45
MDM/Problems Addressed
Differential Diagnosis Includes:
Patient arrives from senior living after rolling out of bed.
Initially hypoxic prehospital, hypoxia has resolved with placement of 100% nonrebreather mask.
She remains obtunded, withdraws to painful stimuli, respirations are irregular but no episodes of apnea.
Exam remarkable for very small contusion left brow with small abrasion.
She remains hemodynamically stable with normal blood pressure, mild sinus tachycardia. Pulse ox 96% on nonrebreather mask.
The son has arrived, is at bedside and agrees that his goal for his mother is to keep her comfortable and his goal is to reenroll in hospice care.
We will hold off on imaging, laboratory studies as these results will not change our plan of care.
We have contacted the hospice company, spoken with hospice nurse who is now ranging for patient to be readmitted to their hospice care. Once this is accomplished my plan is to transfer patient back to the senior living to continue hospice care.
*Pulse Oximetry
Patient hypoxic: yes
*Shift Supervisor Melting Interpretation
Rate: tachycardiac
Interpretation: normal
Rhythm: sinus
*Critical Care Note
Total Time (30-74mins, 75-104mins- exclusive of procedures): Not Applicable
ED Attending Note
-
Portions of this chart may have been created with voice recognition software.� Occasional wrong word or��sound alike� substitutions may have occurred due to the inherent limitations of voice recognition software.
Discharge Plan
Departure
Patient Disposition: Half-Way/SNF
Date of Disposition: 03/07/24
Time of Disposition: 07:39
Patient with high blood pressure during this ER visit?: No
Discharge Problem:
fall out of bed at senior living, End stage chronic obstructive pulmonary disease, Admission for hospice care
Prescriptions:
No Action
omeprazole 40 mg Capsule,Delayed Release(Dr/Ec)
40 mg PO DAILY
trazodone 100 mg tablet
100 mg PO HS
budesonide 0.5 mg/2 mL suspension for nebulization
0.5 mg inhalation R BID
Anoro Ellipta 62.5-25 mcg/actuation blister with device
1 inh INHALATION R DAILY
simethicone 80 mg Tablet,Chewable
80 mg PO TIDPRN PRN (Reason: gas/bloating) 90 Days Qty: 90 0RF
acetaminophen 325 mg Tablet
650 mg PO Q4HPRN PRN (Reason: temp > 101 F) Qty: 0 0RF
ipratropium-albuterol 0.5 mg-3 mg(2.5 mg base)/3 mL Solution For Nebulization
3 ml inhalation R QID Qty: 0 0RF
ipratropium-albuterol 0.5 mg-3 mg(2.5 mg base)/3 mL Solution For Nebulization
3 ml inhalation R Q4HPRN PRN (Reason: shortness of breath) Qty: 0 0RF
diltiazem HCl 240 mg Capsule,Extended Release 24hr
240 mg PO DAILY Qty: 0 0RF
polyethylene glycol 3350 17 gram Powder In Packet
17 g PO DAILYPRN PRN (Reason: constipation) Qty: 0 0RF
prednisone 20 mg Tablet
40 mg PO DAILY Qty: 0 0RF
lorazepam 0.5 mg Tablet
0.5 mg PO TID
morphine 20 mg/5 mL (4 mg/mL) Solution
1 mg PO Q12H
morphine 20 mg/5 mL (4 mg/mL) Solution
1 mg PO Q2HPRN PRN (Reason: SOB)
atropine 1 % Drops
2 drp BUCCAL Q4HPRN PRN (Reason: INCREASED SECRETIONS)
Referrals:
Sukumar Goss MD [Family Provider] -
Interventions
Interventions:
*General Assessment Last Done: 03/07/24 04:11
*Neglect/Abuse Screening Last Done: 03/07/24 04:11
ED- Fall Risk Assessment Last Done: 03/07/24 04:37
*ED COVID-19 Vaccine History Last Done: 03/07/24 04:11
ED-Musculoskeletal Assessment Last Done: 03/07/24 04:44
ED- Neurological Assessment Last Done: 03/07/24 04:37
ED-Skin Assessment Last Done: 03/07/24 04:37
Discharge Date and Time
Print Language: ERITREAN
--- NOTE | 2024-03-07 09:15 | CM ---
CM was consulted for hospice. Patient is currently at [facility] as per family. [facility] cannot accept patient back with a non-rebreather. CM met with family. Plan for Hospice consult and admission for comfort
care. CM updated hospice clinical supervisor with new consult. Referral placed in care port.
--- NOTE | 2024-03-07 11:03 | HOSPNOTE ---
Hospice consult received. Hospice understands patient is on comfort care. Will continue to follow patient to assess for GIP or Hospice at home if the patient improves and is able to go back to the facility where she resides.
--- NOTE | 2024-03-07 12:04 | W.PN.UPDATE ---
Update Note
Progress Note Update
I had an extensive conversation with the patient's daughter, Zoe Kan, at bedside. I explained that the pt is actively dying, currently unresponsive and with agonal breathing. I reconfirmed that the patient is comfort care with Zoe. I did
explain that while on comfort care we would not use a nonrebreather mask. We would use 2L/min NC O2 for comfort and no more as continuing with a nonrebreather mask would not provide more comfort than 2L/min NC O2. She verbally acknowledged
understanding of this. I instructed the patient's nurse, Grace Navarrete, to remove the NRB mask and replace with 2L/min NC O2 over [employer] at 1208.
--- NOTE | 2024-03-07 12:08 | HPS.HSE ---
Family Physician
-
Family Physician: Sukumar Goss
Chief Complaint
-
Fall out of bed, change in mental status
History of Present Illness
74 y /o F with PMHx:
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
Portosystemic vascular collaterals
Essential hypertension
Chronic dysphagia
History of acute nonischemic myocardial injury
Gastroesophageal reflux disease
Anemia of chronic disease with pancytopenia
Depression
Anxiety
Chronic cachexia with likely severe protein calorie malnutrition
Hyponatremia
who p/w CC Fall out of bed and change in mental status. At the time of my evaluation the patient is unresponsive with her eyes rolled back in her head and with agonal breathing. The history is obtained from the patient's daughter, Zoe Kan,
at bedside. The patient was discharged 2 days ago to [facility] on hospice. As per my discussion with Zoe she thinks the patient was signed onto hospice. Over the past 2 days the patient has received comfort care medications. Zoe
reports that her mentation declined significantly and she was told by the physician at [facility] that the patient was overmedicated. Zoe reports the patient fell out of bed and was sent to the ER today for the fall as well as being
'overmedicated.' I did reconfirm with Zoe that the patient is to be hospice/comfort care only at this time. Zoe verbally acknowledged that the patient is to be hospice/comfort care only at this time.
Medical History
Past Medical History
Past Medical History: Reports Other
Additional Past Medical History:
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
Portosystemic vascular collaterals
Essential hypertension
Chronic dysphagia
History of acute nonischemic myocardial injury
Gastroesophageal reflux disease
Anemia of chronic disease with pancytopenia
Depression
Anxiety
Chronic cachexia with likely severe protein calorie malnutrition
Hyponatremia
Past Surgical History: Reports Other (N/A)
Social History
Unable to obtain full social history at this time due to: Acuity
Family History
Family History: Not pertinent
Allergies / Home Medications
Allergies reflects when Allergies were last updated in [employer].
Home Medications with original date entered in [employer]
Allergy/Medication List:
Allergies
Allergy/AdvReac Type Severity Reaction Status Date / Time
No Known Allergies Allergy Verified 01/02/24 11:41
Home Medications
omeprazole 40 mg capsule,delayed release 40 mg PO DAILY Gastrointestinal Issue 01/22/23
budesonide 0.5 mg/2 mL suspension for nebulization 0.5 mg inhalation R BID Lung/Breathing Issues 12/12/23
trazodone 100 mg tablet 100 mg PO HS Mental Health/Anxiety 12/12/23
umeclidinium 62.5 mcg-vilanterol 25 mcg/actuation powdr for inhalation (Anoro Ellipta) 1 inh inhalation R DAILY Lung/Breathing Issues 12/12/23
simethicone 80 mg chewable tablet 80 mg PO TIDPRN PRN gas/bloating 90 days #90 tabs 12/30/23
acetaminophen 325 mg tablet 650 mg (2 x 325 mg) PO Q4HPRN PRN temp > 101 F #0 tabs 01/14/24
diltiazem HCl 240 mg capsule,extended release 24 hr 240 mg PO DAILY #0 caps 01/14/24
ipratropium 0.5 mg-albuterol 3 mg (2.5 mg base)/3 mL nebulization soln 3 ml inhalation R Q4HPRN PRN shortness of breath #0 mL 01/14/24
ipratropium 0.5 mg-albuterol 3 mg (2.5 mg base)/3 mL nebulization soln 3 ml inhalation R QID #0 mL 01/14/24
polyethylene glycol 3350 17 gram oral powder packet 17 g PO DAILYPRN PRN constipation #0 ea 01/14/24
prednisone 20 mg tablet 40 mg (2 x 20 mg) PO DAILY #0 tabs 01/14/24
atropine 1 % eye drops 2 drp buccal Q4HPRN PRN INCREASED SECRETIONS 03/03/24
lorazepam 0.5 mg tablet 0.5 mg PO TID 03/03/24
morphine 20 mg/5 mL (4 mg/mL) oral solution 1 mg PO Q12H 03/03/24
morphine 20 mg/5 mL (4 mg/mL) oral solution 1 mg PO Q2HPRN PRN SOB 03/03/24
If medication reconciliation has not been performed, why?: Unresponsive
Review of Systems
-
Unable to obtain full review of systems at this time due to: Acuity
Physical Exam
Vital Signs
Vital Signs
Temp Pulse Resp BP Pulse Ox
98.2 F 106 16 112/58 86
03/07/24 04:11 03/07/24 11:30 03/07/24 11:30 03/07/24 11:00 03/07/24 11:30
Physical Exam
General: Other
Impression/Plan
-
Gen: agonal breathing, NCAT, appears chronically ill and malnourished
Eyes: limited movement of eyes but when not moving they are rolled back superiorly
CV: RRR, +S1/S2, no m/r/g.
Resp: distant BS, CTAB anteriorly, no rales, wheezes, or rhonchi.
Skin: No rashes.
Neuro: unresponsive to voice and shoulder shake
End-stage COPD on hospice:
-I had an extensive conversation with the patient's daughter, Zoe Kan, at bedside. I explained that the pt is actively dying, currently unresponsive and with agonal breathing. I reconfirmed that the patient is hospice/comfort care only with
Zoe. I did explain that while on comfort care we would not use a nonrebreather mask. We would use 2L/min NC O2 for comfort and no more as continuing with a nonrebreather mask would not provide more comfort than 2L/min NC O2. She verbally
acknowledged understanding of this. I instructed the patient's nurse, Grace Navarrete, to remove the NRB mask and replace with 2L/min NC O2 over [employer] at 1208 on 03/07/24.
-IV Ativan/morphine PRN
-comfort care protocol
-dulcolax suppositories
-case discussed with and [facility] is aware of the case at this moment
DNR/comfort care only - confirmed with Zoe Rodarteut at 1219 on 03/07/24
DVT proph not indicated while on hospice
Total time spent on today's encounter was 75 minutes which included time spent in counseling the patient/family regarding diagnosis and treatment plan as listed above, goals of care, and symptom management. Case was discussed with nursing staff, ED
attending, and case management. All labs and imaging personally reviewed by me. Remainder the time spent in detailed review of previous records, lab data, imaging, and other medical provider documentation.
[2024-03-07] MEDS: MORPHINE SULFATE 2 MG IV ×3 (17:31→20:44)
--- NOTE | 2024-03-07 19:35 | PTCARENOTE ---
Patient received from ED, patient unresponsive. Tachycardic, pulse ox 77% on NRB, medicated per APR. Family at bedside.
--- NOTE | 2024-03-07 19:40 | HOSPNOTE ---
Spoke with the patients daughter Shari this evening. Explained the Hospice philosophy and services
She is in agreement with signing onto Hospice Friday03/08/24 .
[2024-03-07] MEDS: ATIVAN 1 MG IV (19:44)
[2024-03-07] MEDS: NSS (PRESERVATIVE FREE) 0.5 ML IV (19:44)
--- NOTE | 2024-03-07 19:45 | PTCARENOTE ---
Patient medicated with morphine and ativan, NRB removed and placed on room air. Plan of care reviewed with daughter
--- NOTE | 2024-03-07 21:03 | PTCARENOTE ---
Patient . Edson GASPAR notified
--- NOTE | 2024-03-07 21:57 | W.PN.DEATH ---
Pronouncement of
-
Called to see patient to pronounce.
No spontaneous heart tones or respirations noted.
Patient not responsive to verbal stimuli.
Patient is pronounced .
Time of : 21:03
Date of : 03/07/24
Cause of : end stage COPD, cirrhosis, portal HTN, cachexia
Family Notified: Yes (daughter present )
== END 2024-03-07 21:03 | disposition expired | DRG 951 ==
LOC: 2 SOUTH 12:44
PROVIDERS: ADMITTING PHYSICIAN Internal Medicine; EMERGENCY PHYSICIAN Emergency Medicine; FAMILY PHYSICIAN Internal Medicine
DX: Z51.5 Encounter for palliative care (principal); E43 Unspecified severe protein-calorie malnutrition; I85.10 Secondary esophageal varices without bleeding; K76.6 Portal hypertension; D61.818 Other pancytopenia; E87.1 Hypo-osmolality and hyponatremia; R64 Cachexia; Z68.1 Body mass index [BMI] 19.9 or less, adult; Z66 Do not resuscitate; J44.9 Chronic obstructive pulmonary disease, unspecified; K74.60 Unspecified cirrhosis of liver; B19.20 Unspecified viral hepatitis C without hepatic coma; I10 Essential (primary) hypertension; K21.9 Gastro-esophageal reflux disease without esophagitis; D63.8 Anemia in other chronic diseases classified elsewhere; F32.A Depression, unspecified; F41.9 Anxiety disorder, unspecified; R13.10 Dysphagia, unspecified; Z86.16 Personal history of COVID-19; Z87.891 Personal history of nicotine dependence; Z99.81 Dependence on supplemental oxygen; Z79.899 Other long term (current) drug therapy